=== PATIENT | female | born 1960 | race Caucasian/White ===

== ENCOUNTER 2023-01-09 22:27 | Emergency (ER) | payer BC, SELFPAY ==
[2023-01-09 22:34] VITALS: BP 154/84; PULSE 88; RESP 20; TEMP 35.6; O2SAT 90
--- NOTE | 2023-01-09 23:59 | ED.GENADULT ---
HPI - General Adult General Chief complaint: Shortness of Breath/Dyspnea Stated complaint: has copd and is having a hard time breathing Time Seen by Provider: 01/09/23 23:51 History of Present Illness HPI narrative: pt feeling short of breath . took inhaler 1 hour ago, Albuterol. Pt feels a little bit better but still feels short of breath . 8/10 rated for SOB. 62-year-old woman presenting to the emergency department with concern of increasing shortness of breath over the last couple of days. She does have a history of COPD. No longer smokes but until recently at least smoked marijuana in a rather committed fashion. Does have and sounds like DuoNebs available. Isn't quite due for another dose but has been using them. It is not clear to me that she does have a steroid inhaler; sounds to have an long-acting beta agonist combined with ipratropium. Not clear to me that she has had or has regular pulmonary function test. No significant cough. No fever. No swelling in the legs. Does not have a CHF diagnosis. No fevers. Related Data Allergies Allergy/AdvReac Type Severity Reaction Status Date / Time bupropion [From Wellbutrin] Allergy Intermediate Verified 01/09/23 22:38 Latex, Natural Rubber Allergy Intermediate Verified 01/09/23 22:38 Review of Systems Status of ROS: Reports: 6 or more systems reviewed and unremarkable except as noted in History and below PFSH ON LICENSE OF [facility] Social History Non-prescribed substance use: denies use Exam Narrative: Exam Narrative: Is very pleasant. Seems a little uncomfortable subtly labored in her breathing. Calm. Skin is warm and dry. No rash is apparent. Extremities are without edema. Well perfused. I do not hear any wheeze or stridor. On auscultation to her lungs however there are trace end-expiratory wheezes generally but more so on the left upper chest. Heart with regular rate and rhythm. Const: Vital Signs, click to edit/add: Vital Signs - 24 hr 01/09/23 22:34 01/10/23 01:00 Temperature 96.0 F L Pulse Rate [Left P ulse Oximeter] 88 82 Respiratory Rate 20 18 Blood Pressure [Ri ght Upper Arm] 154/84 H 132/8 L Pulse Oximetry 90 92 Oxygen Delivery Me thod Room Air Room Air Documenting provider has reviewed patient's vital signs: yes Course Vital Signs Vital signs: Initial Vital Signs Temperature 96.0 F L 01/09/23 22:34 Temperature Source Temporal Artery Scan 01/09/23 22:34 Pulse Rate 88 01/09/23 22:34 Pulse Rhythm Regular 01/09/23 22:34 Respiratory Rate 20 01/09/23 22:34 Blood Pressure 154/84 H 01/09/23 22:34 Blood Pressure Mean 107 H 01/09/23 22:34 Blood Pressure Position Sitting 01/09/23 22:34 Pulse Oximetry 90 01/09/23 22:34 Oxygen Delivery Method Room Air 01/09/23 22:34 Vital Signs Temperature 96.0 F L 01/09/23 22:34 Pulse Rate 88 01/09/23 22:34 Respiratory Rate 20 01/09/23 22:34 Blood Pressure 154/84 H 01/09/23 22:34 Pulse Oximetry 90 01/09/23 22:34 Oxygen Delivery Method Room Air 01/09/23 22:34 Temperature 96.0 F L 01/09/23 22:34 Pulse Rate 82 01/10/23 01:00 Respiratory Rate 18 01/10/23 01:00 Blood Pressure 132/8 L 01/10/23 01:00 Pulse Oximetry 92 01/10/23 01:00 Oxygen Delivery Method Room Air 01/10/23 01:00 Medical Decision Making MDM Narrative Medical decision making narrative: Differential includes CHF/CHF exacerbation, pneumonia, COPD exacerbation as described, reactive airway exacerbation of some sort, pneumothorax, pneumomediastinum, nonspecific URI. Pulmonary embolus perhaps but seems atypical. COVID potential. Ordered for DuoNeb and chest x-ray. By my read chest x-rays without infiltrative process. Seems a little hyperlucent maybe hyperexpanded. Radiology over-read noting normalcy. Improved after DuoNeb somewhat. Also given dose of prednisone. [place] better and potentially depart. I heard that struggled a little bit again upon departure but used her inhaler and felt better. See patient discharge plan. Discharge Plan Discharge Clinical Impression: COPD exacerbation Patient Disposition: Home w/ Parent or Adult Condition: Improved Additional Instructions: I would use your DuoNeb inhaler containing albuterol and ipratropium bromide, scheduled 4 times daily over the next 3-4 days. You can use albuterol inhaler or nebulizer in between if needed. Exceeding 8 or 9 dosings per day is too much. We change, our environment changes, therefore symptoms change. It is good to periodically have testing of your lung function and adjustment of medication accordingly. You might benefit from an inhaled daily steroid which it does not sound like you're taking at this point. But you can revisit your symptoms and pulmonary function in a visit with your primary care provider or pulmonology. Return for increasing and persistent shortness of breath, associated fever. Prednisone from [facility]. Follow Up/Referrals: Zoey Watters MD [Primary Care Provider] - Stand Alone Forms: [employer] Info Instructions
--- NOTE | 2023-01-10 | CRLHL7_ITS ---
For Patients: As a result of the Century Cures Act, medical imaging exams and procedure reports are released immediately into your electronic medical record. You may view this report before your referring provider. If you have questions, please contact your health care provider. INDICATION: Dyspnea. History of COPD. COMPARISON: Chest two views from 04/17/2019 FINDINGS: PA and lateral views of the chest were obtained. The lungs remain clear. No focal or diffuse infiltrates are present. The heart remains normal in size. The mediastinum is normal in appearance. The osseous structures are normal in appearance for the patient`s age. IMPRESSION: Normal chest two views. Dictated by Sergey Mansfield MD @ 01/10/2023 1:49:06 AM (Electronically Signed)
[2023-01-10] MEDS: predniSONE 20 MG TABLET 60 MG PO (00:03)
[2023-01-10] MEDS: IPRAT-ALBUT 0.5-2.5 MG/3 ML NEB 1 NEB IH (00:06)
[2023-01-10 01:00] VITALS: BP 132/8; PULSE 82; RESP 18; O2SAT 92
== END 2023-01-10 01:12 | disposition home or self-care (01) ==
PROVIDERS: Emergency Provider Family Medicine; PCP Family Medicine
DX: J44.1 Chronic obstructive pulmonary disease with (acute) exacerbation (principal)
CPT/HCPCS: 71046; 94640; 99283; 99284; J7512

== ENCOUNTER 2023-02-27 19:16 | Emergency (ER) | payer BC, SELFPAY ==
[2023-02-27] VITALS (16 sets, daily range): BP systolic 100–113; BP diastolic 71–80; PULSE 79–87; RESP 20; TEMP 35.5; O2SAT 90–99; BMI 24.8
--- NOTE | 2023-02-27 19:41 | CRLHL7_ITS ---
For Patients: As a result of the Century Cures Act, medical imaging exams and procedure reports are released immediately into your electronic medical record. You may view this report before your referring provider. If you have questions, please contact your health care provider. INDICATION: COPD, shortness of breath TECHNIQUE: Chest 2 views COMPARISON: FINDINGS: Cardiovascular and mediastinum: Heart size and vasculature are normal in caliber and appearance. Lungs and pleural spaces: Mild generalized hyperlucency, as before, otherwise, lungs are clear. No sign of infiltrate or mass. No sign of pleural effusion. No pneumothorax. Bones and soft tissues: No significant findings. IMPRESSION: No acute findings and no significant changes from the prior exam. Dictated by Abhilash Ogden MD @ 02/27/2023 8:38:54 PM (Electronically Signed)
--- NOTE | 2023-02-27 19:45 | ED_ITS ---
HPI - General Adult General Time Seen by Provider: 19:30 Date Seen: 02/27/23 Chief complaint: Shortness of Breath/Dyspnea Stated complaint: COPD, can't breath Time Seen by Provider: 02/27/23 19:26 History of Present Illness HPI narrative: This is a pleasant 63-year-old female coming to the ER today by her family. She came in from home for shortness of breath. She has a history of COPD and is a former smoker. She quit cigarettes some years ago. She was seen here in the ER a few weeks ago for COPD and was treated with DuoNebs and a burst of oral prednisone with improvement. She had been doing fairly well up until yesterday. She was out in the humidity and then noted that her breathing got worse. She often identifies humidity is a trigger for her COPD exacerbations. Overnight she was having trouble breathing. She used her Ventolin inhaler and her nebulizers without much improvement. She was not able to sleep much because of trouble breathing. She has had ongoing shortness of breath all day today. She was trying to put off coming in. She gave herself a 40 mg dose of prednisone this morning about 9:00 a.m., as she has a standby prescription for prednisone at home. Ultimately her breathing was too short all day long so she came in. She is not having any chest pain. No hemoptysis. She has a largely nonproductive cough, sometimes productive of small amounts of clear sputum. No fever. No known sick exposures. No palpitations. No swelling in her legs. Related Data Home Medications Medication Instructions Recorded Confirmed acyclovir 5 % topical ointment topical 02/27/23 albuterol sulfate 90 mcg/actuation inhalation 02/27/23 aerosol inhaler (Ventolin HFA) aripiprazole 5 mg tablet 5 mg PO DAILY 02/27/23 02/27/23 atorvastatin 20 mg tablet 20 mg PO DAILY 02/27/23 02/27/23 cetirizine 10 mg tablet 10 mg PO DAILY 02/27/23 02/27/23 duloxetine 60 mg capsule,delayed PO 02/27/23 release epinephrine 0.3 mg/0.3 mL 0.3 mg IM ONCE PRN 02/27/23 02/27/23 injection, auto-injector fenofibrate nanocrystallized 145 145 mg PO DAILY 02/27/23 02/27/23 mg tablet ipratropium 0.5 mg-albuterol 3 mg ml inhalation 02/27/23 (2.5 mg base)/3 mL nebulization soln metformin 500 mg tablet 1,000 mg PO BID 02/27/23 02/27/23 metoprolol succinate 50 mg 50 mg PO DAILY 02/27/23 02/27/23 tablet,extended release 24 hr tiotropium 2.5 mcg-olodaterol 2.5 2 puff inhalation DAILY 02/27/23 02/27/23 mcg/actuation mist for inhalation (Stiolto Respimat) valacyclovir 500 mg tablet PO 02/27/23 Allergies Allergy/AdvReac Type Severity Reaction Status Date / Time bupropion [From Wellbutrin] Allergy Intermediate Verified 01/09/23 22:38 Latex, Natural Rubber Allergy Intermediate Verified 01/09/23 22:38 Review of Systems Narrative: [facility] Social History Smoking Status: Never smoker Do you use any of these nicotine containing products: None How often do you have a drink containing alcohol: never AUDIT-C Alcohol total score: 0 Non-prescribed substance use: denies use Exam Narrative: Exam Narrative: Constitutional: Appears well-developed and well-nourished. Alert. Conversant. Non toxic. HENT: Head: Atraumatic. Nose: Nose normal. Mouth/Throat: Oral mucosa is clear and moist. no trismus. Pharynx normal. Tonsils symmetric. No tonsillar enlargement, erythema, or exudate. Eyes: Conjunctivae normal. EOM normal. Pupils equal, round, and reactive to light. No scleral icterus. Neck: Normal range of motion. Neck supple. No tracheal deviation present. No JVD Cardiovascular: Normal rate, regular rhythm. No gallop. No friction rub. No murmur heard. Symmetric radial artery pulses Pulmonary/Chest: Effort normal. No acute tachypnea or retractions. Oxygen sat 91% room air. No stridor. No respiratory distress. Has reasonably good aeration in the apices but fairly tight lung sounds and no audible wheezes specially with forced expiration.. No tenderness. Abdominal: Soft. No distension. No mass. No tenderness. No rebound. No guarding. Musculoskeletal: RUE: Normal range of motion. No tenderness. No deformity LUE: Normal range of motion. No tenderness. No deformity RLE: Normal range of motion. No edema. No tenderness. No deformity LLE: Normal range of motion. No edema. No tenderness. No deformity Neurological: Alert and oriented to person, place, and time. Normal strength. CN II-VII intact. No sensory deficit. GCS eye subscore is 4. GCS verbal subscore is 5. GCS motor subscore is 6. Normal coordination Skin: Skin is warm and dry. No rash noted. No pallor. Normal capillary refill. Psychiatric: Normal mood. Normal affect. Const: Vital Signs, click to edit/add: Vital Signs - 24 hr 02/27/23 19:20 02/27/23 20:00 02/27/23 20:10 Temperature 96 F L Pulse Rate 84 82 Pulse Rate [Pulse Oximeter] 86 Respiratory Rate 20 Blood Pressure Blood Pressure [Le ft Upper Arm] 101/71 Pulse Oximetry 94 94 92 Oxygen Delivery Me thod Room Air 02/27/23 20:20 02/27/23 20:30 02/27/23 20:40 Temperature Pulse Rate 81 80 80 Pulse Rate [Pulse Oximeter] Respiratory Rate Blood Pressure Blood Pressure [Le ft Upper Arm] Pulse Oximetry 90 98 99 Oxygen Delivery Me thod 02/27/23 20:50 02/27/23 21:00 02/27/23 21:13 Temperature Pulse Rate 79 84 84 Pulse Rate [Pulse Oximeter] Respiratory Rate Blood Pressure Blood Pressure [Le ft Upper Arm] Pulse Oximetry 99 98 91 Oxygen Delivery Me thod 02/27/23 21:14 02/27/23 21:20 02/27/23 21:26 Temperature Pulse Rate 86 80 82 Pulse Rate [Pulse Oximeter] Respiratory Rate Blood Pressure 100/74 113/80 Blood Pressure [Le ft Upper Arm] Pulse Oximetry 93 92 95 Oxygen Delivery Me thod 02/27/23 21:30 02/27/23 21:40 02/27/23 21:50 Temperature Pulse Rate 79 83 87 Pulse Rate [Pulse Oximeter] Respiratory Rate Blood Pressure 107/77 Blood Pressure [Le ft Upper Arm] Pulse Oximetry 98 95 92 Oxygen Delivery Me thod 02/27/23 21:51 Temperature Pulse Rate 82 Pulse Rate [Pulse Oximeter] Respiratory Rate Blood Pressure Blood Pressure [Le ft Upper Arm] Pulse Oximetry 92 Oxygen Delivery Me thod Course Course Hospital Course: recheck: after duoneb, no change in symptoms. Repeat lung exam: increased bilateral wheezing. Possibly due to improvement in overall aeration. will repeat neb. Reevaluation(s) Reevaluation #1: Recheck-troponin is abnormal. I reviewed we reviewed EKG and it does confirm no evidence for ischemia. Updated the patient and her son. They verbalized understanding and agree with the plan to administer aspirin, heparin. If they require transfer they would [facility] where she has been in the past. Phone call to our [facility] Reevaluation #2: Discussed with cardiology from [facility], cardiology Dr. Magana. He would agree with aspirin, heparin. No beds available currently in the line. Will put the patient on a wait list for a cardiac tele bed. They are currently 2 patient is on the wait list in front of her. He request delta troponin-ordered. Vital Signs Vital signs: Initial Vital Signs Temperature 96 F L 02/27/23 19:20 Temperature Source Temporal Artery Scan 02/27/23 19:20 Pulse Rate 86 02/27/23 19:20 Respiratory Rate 20 02/27/23 19:20 Blood Pressure 101/71 02/27/23 19:20 Blood Pressure Mean 81 02/27/23 19:20 Blood Pressure Position Sitting 02/27/23 19:20 Pulse Oximetry 94 02/27/23 19:20 Oxygen Delivery Method Room Air 02/27/23 19:20 Vital Signs Temperature 96 F L 02/27/23 19:20 Pulse Rate 86 02/27/23 19:20 Respiratory Rate 20 02/27/23 19:20 Blood Pressure 101/71 02/27/23 19:20 Pulse Oximetry 94 02/27/23 19:20 Oxygen Delivery Method Room Air 02/27/23 19:20 Temperature 96 F L 02/27/23 19:20 Pulse Rate 82 02/27/23 21:51 Respiratory Rate 20 02/27/23 19:20 Blood Pressure 107/77 02/27/23 21:50 Pulse Oximetry 92 02/27/23 21:51 Oxygen Delivery Method Room Air 02/27/23 19:20 Medical Decision Making MDM Narrative Medical decision making narrative: This patient presents to the ER today for evaluation of difficulty breathing that began yesterday, persisted throughout the night and throughout the day today. Differential was broad. No evidence of palpitations, syncope or other cardiac dysrhythmia. She has a history of COPD and felt that this was probably an exacerbation of COPD. However she is not responding to her normal at home inhalers, nebulizers, and at home steroids. Lung sounds here in the ER initially revealed minimal bibasilar wheezes but generally good aeration. We administer DuoNeb here in the ER[] We considered possible atypical presentation of ACS. EKG shows no definite ischemia but troponin is positive at 0.55 ng per mL. This is concerning for po ssible non ST elevation [place]. delta troponin ordered for 11:00 p.m.. Discussed with Cardiology from [facility], Dr. Magana. He agrees with plan to initiate aspirin, heparin. He would agree that [facility] Unfortunately no beds available. She is currently on the wait list. EKG shows no evidence for pericarditis. Clinical presentation not suggestive of myocarditis. Chest x-ray shows no evidence for pneumonia, pneumothorax, pulmonary edema, pleural effusion, rib fracture, cardiomegaly. Mediastinum is normal on the x-ray. The patient has no ripping or tearing pain through to the back and has symmetric pulses on exam, no other acute neuro findings so I doubt aortic dissection. Risk of radiation and contrast exposure would outweigh the benefit of CT angiogram. We considered PE for this patient. Overall felt to be low risk given alternative explanations for her symptoms. She is having some wheezing and bronchospasm consistent with COPD. She was given herself steroids at home today so did not repeat a dose here in the ER tonight. We did administer serial bronchodilators here in the ER. She did have some slight improvement in her lung sounds. Unclear if rhabdo troponin is due to demand ischemia from COPD exacerbation or truly represents ACS. She will be transferred for cardiac workup to rule out ACS. No signs of chest wall cellulitis, shingles, injury. Lab Data Labs: Lab Results 02/27/23 02/27/23 02/27/23 Range/Units 20:00 20:29 21:10 WBC 8.35 (4.50-11.00) K/uL RBC 4.26 (4.00-5.20) m/uL Hgb 12.9 (12.0-16.0) gm/dL Hct 39.9 (33.0-51.0) % MCV 94 (80-100) fL MCH 30 (26-34) pg MCHC 32 (32-36) gm/dL RDW Coeff of Debby 12.2 (11.5-15.5) % Plt Count 310 (140-440) K/uL Neut % (Auto) 82.5 H (42.0-72.0) % Lymph % (Auto) 14.7 L (20-44) % [place] % (Auto) 1.9 (0.0-11.0) % Eos % (Auto) 0.5 (0.0-7.0) % Baso % (Auto) 0.2 (0.0-3.0) % Neut # (Auto) 6.90 (1.7-7.0) K/uL Lymph # (Auto) 1.20 (0.90-2.90) K/uL [place] # (Auto) 0.20 (0.00-0.90) K/UL Eos # (Auto) 0.04 (0.00-0.50) K/uL Baso # (Auto) 0.02 (0.00-0.30) K/uL Abs Immat Gran (auto) 0.02 (0.00-0.30) K/uL Imm/Tot Granulo (auto) 0.2 % INR 1.02 (0.91-1.10) APTT 31 (23-33) Seconds Sodium 134 L (135-149) mmol/L Potassium 4.6 (3.6-5.1) mmol/L Chloride 102 (96-114) mmol/L Carbon Dioxide 20 (20-32) mmol/L BUN 25 (7-30) mg/dL Creatinine 0.6 (0.5-1.5) mg/dL Estimated Creat Clear 48.25 Estimated GFR 101 ml/min Glucose 159 H (60-115) mg/dL Calcium 8.7 (8.4-10.6) mg/dL Troponin I 0.55 H* (0.01-0.04) ng/mL SARS-CoV-2 (PCR) Negative SARS-CoV-2 (Negative) Influenza Type A (PCR) Negative PCR FLU A (Negative) Influenza Type B (PCR) Negative PCR FLU B (Negative) RSV (PCR) Negative PCR RSV (Negative) Imaging Data Chest x-ray: My impression: No pneumonia, pneumothorax, pulmonary edema Radiologist's impression: IMPRESSION: No acute findings and no significant changes from the prior exam. ECG Data Interpretation: Normal sinus rhythm rate 84 NV 142 QRS axis: Right axis deviation. No pathologic Q-waves. ST segment/T wave: No definite ST segment elevation or depression. No T-wave inversions. QTc: 449 Discharge Plan Discharge Clinical Impression: Non-ST elevation [place] (NSTEMI), COPD exacerbation Patient Disposition: [facility] Condition: Guarded Prescriptions: No Action metformin 500 mg tablet 1,000 mg PO BID atorvastatin 20 mg tablet 20 mg PO DAILY ipratropium-albuterol 0.5 mg-3 mg(2.5 mg base)/3 mL solution for nebulization INHALATION Patient Comments: [NO ORIGINAL SIG] cetirizine 10 mg tablet 10 mg PO DAILY metoprolol succinate 50 mg tablet extended release 24 hr 50 mg PO DAILY valacyclovir 500 mg tablet PO acyclovir 5 % ointment topical epinephrine 0.3 mg/0.3 mL auto-injector 0.3 mg IM ONCE PRN albuterol sulfate [Ventolin HFA] 90 mcg/actuation HFA aerosol inhaler inhalation aripiprazole 5 mg tablet 5 mg PO DAILY duloxetine 60 mg capsule,delayed release(DR/EC) PO fenofibrate nanocrystallized 145 mg tablet 145 mg PO DAILY Stiolto Respimat 2.5-2.5 mcg/actuation mist 2 puff inhalation DAILY Stand Alone Forms: [employer] Info Instructions
[2023-02-27 20:15] LABS: Basophils Absolute Auto 0.02 K/uL (0.00-0.30); Basophils Percent Auto 0.2 % (0.0-3.0); Eosinophils Absolute Auto 0.04 K/uL (0.00-0.50); Eosinophils Percent Auto 0.5 % (0.0-7.0); Hematocrit 39.9 % (33.0-51.0); Hemoglobin* 12.9 gm/dL (12.0-16.0); Immature Granulocytes Abs Auto 0.02 K/uL (0.00-0.30); Immature Granulocytes Pct Auto 0.2 %; Lymphocytes Percent Auto 14.7 % (20-44); Mean Corpuscular HGB Conc 32 gm/dL (32-36); Mean Corpuscular Hemoglobin 30 pg (26-34); Mean Corpuscular Volume 94 fL (80-100); Monocytes Percent Auto 1.9 % (0.0-11.0); Neutrophils Percent Auto 82.5 % (42.0-72.0); RDW Coefficient of Variation % 12.2 % (11.5-15.5); Red Blood Count 4.26 m/uL (4.00-5.20); White Blood Count* 8.35 K/uL (4.50-11.00)
[2023-02-27 20:29] LABS: Chloride* 102 mmol/L (96-114); Potassium* 4.6 mmol/L (3.6-5.1); Sodium* 134 mmol/L (135-149)
[2023-02-27 20:32] LABS: Blood Urea Nitrogen* 25 mg/dL (7-30); Carbon Dioxide* 20 mmol/L (20-32); Creatinine* 0.6 mg/dL (0.5-1.5); Est. Creatinine Clearance* 48.25; Estimated Glomerular Filt Rate 101 ml/min
[2023-02-27 20:33] LABS: Calcium* 8.7 mg/dL (8.4-10.6); Glucose* 159 mg/dL (60-115)
[2023-02-27 20:47] LABS: Platelet Count* 310 K/uL (140-440); Slide Review Reflex No
[2023-02-27 20:48] LABS: Troponin I* 0.55 ng/mL (0.01-0.04)
[2023-02-27] MEDS: IPRAT-ALBUT 0.5-2.5 MG/3 ML NEB 1 NEB IH (21:05)
[2023-02-27] MEDS: ASPIRIN 81 MG TAB.CHEW 324 MG PO (21:11)
[2023-02-27] MEDS: HEPARIN 5,000 UNIT/0.5 ML INJ 3800 UNIT IVP (21:28)
[2023-02-27] MEDS: HEPARIN 25,000 UNIT/500 ML BAG 15 UNIT IV (21:30)
[2023-02-27 21:37] LABS: PCR FLU A Negative PCR FLU A (Negative); PCR FLU B Negative PCR FLU B (Negative); PCR RSV Negative PCR RSV (Negative)
[2023-02-27 21:45] LABS: INR 1.02 (0.91-1.10)
[2023-02-27 21:46] LABS: Partial Thromboplastin Time* 31 Seconds (23-33)
[2023-02-27] MEDS: ALBUTEROL SULFATE 2.5 MG/3 ML VIAL.NEB NEB (21:49)
[2023-02-27 22:16] LABS: SARS PCR* Negative SARS-CoV-2 (Negative)
[2023-02-27 22:50] LABS: Troponin I* 0.56 ng/mL (0.01-0.04)
--- NOTE | 2023-02-27 23:35 | CRLHL7_ITS ---
For Patients: As a result of the Century Cures Act, medical imaging exams and procedure reports are released immediately into your electronic medical record. You may view this report before your referring provider. If you have questions, please contact your health care provider. INDICATION: Shortness of breath, chest pain TECHNIQUE: CT chest pulmonary PE protocol acquired with 95 cc Isovue 370 IV contrast. COMPARISON: Chest radiograph February 27, 2023, chest CT October 30, 2010 FINDINGS: Cardiovascular structures: Normal vascular enhancement of the pulmonary arteries, no sign of pulmonary embolism. Heart size is normal. Coronary artery calcifications. No sign of aneurysm in the thoracic aorta. Mediastinum and zulma: No mass or adenopathy. Lungs: Centrilobular emphysema. Calcified granuloma in the right upper lobe. 4.6 mm subpleural pulmonary nodule right upper lobe, stable since October 30, 2010. This can be considered benign. Diffuse bronchial wall thickening. Pleura and pericardium: No effusions. Chest wall and axilla: No mass or adenopathy. Upper abdomen: Unremarkable. Bones: No significant findings. IMPRESSION: No pulmonary embolism or pneumonia. Emphysema with chronic bronchitis. Coronary artery disease. Please note that all CT scans at this facility use dose modulation, iterative reconstruction, and/or weight-based dosing when appropriate to reduce radiation dose to as low as reasonably achievable. Dictated by Ramona Horton MD @ 02/28/2023 2:07:52 AM (Electronically Signed)
[2023-02-28 00:24] LABS: Troponin I* 0.53 ng/mL (0.01-0.04)
--- NOTE | 2023-02-28 00:24 | ED.NURSE ---
Critical result from lab: trop I 0.53. and RN updated.
[2023-02-28] MEDS: HEPARIN 5,000 UNIT/0.5 ML INJ 3200 UNIT IVP (04:50)
--- NOTE | 2023-02-28 04:51 | ED.NURSE ---
Patient report to EDILBERTO Santos. Patient left department via EMS cot en route to [facility] with all patient belongings.
[2023-02-28 05:36] LABS: Partial Thromboplastin Time* 29 Seconds (23-33)
[2023-02-28 05:37] LABS: Troponin I* 0.56 ng/mL (0.01-0.04)
[2023-02-28 06:33] LABS: INR 0.98 (0.91-1.10); Prothrombin Time 13.6 Seconds
== END 2023-02-28 04:30 | disposition short-term general hospital (02) ==
PROVIDERS: Emergency Provider Emergency Medicine; PCP Family Medicine
DX: I21.4 Non-ST elevation (NSTEMI) myocardial infarction (principal); J44.1 Chronic obstructive pulmonary disease with (acute) exacerbation
CPT/HCPCS: 36415; 71046; 71275; 80048; 84484; 85025; 85027; 85610; 85730; 87631; 93005; 94640; 99284; 99285; A9270; J1644; Q9967

== ENCOUNTER 2023-02-28 04:37 | Outpatient (CLI) | payer BC, SELFPAY | END 2023-02-28 04:38 | disposition home or self-care (01) | LOC: AMB 05-17 09:24 | PROVIDERS: PCP Family Medicine; Visit Provider Emergency Medicine | DX: I21.4 Non-ST elevation (NSTEMI) myocardial infarction (principal); J44.9 Chronic obstructive pulmonary disease, unspecified | CPT/HCPCS: A0425; A0427 ==

== ENCOUNTER 2023-08-16 14:01 | Emergency (ER) | payer MEDICAID, SELFPAY ==
[2023-08-16] VITALS (8 sets, daily range): BP systolic 129; BP diastolic 77; PULSE 82–102; RESP 20; TEMP 36.6; O2SAT 90–93; BMI 25.2
[2023-08-16 14:56] LABS: PCR FLU A POSITIVE PCR FLU A (Negative); PCR FLU B Negative PCR FLU B (Negative); PCR RSV Negative PCR RSV (Negative); SARS PCR* Negative SARS-CoV-2 (Negative)
--- NOTE | 2023-08-16 15:05 | CRLHL7_ITS ---
For Patients: As a result of the Century Cures Act, medical imaging exams and procedure reports are released immediately into your electronic medical record. You may view this report before your referring provider. If you have questions, please contact your health care provider. INDICATION: Cough. TECHNIQUE: Chest 2 views. COMPARISON: None. FINDINGS: Cardiovascular and mediastinum: Heart size and vasculature are normal in caliber and appearance. Lungs and pleural spaces: Pulmonary emphysema. No sign of infiltrate or mass. No sign of pleural effusion. No pneumothorax. Bones and soft tissues: No significant findings. IMPRESSION: Pulmonary emphysema. No acute or significant findings. Dictated by Chas Gonzales MD @ 08/16/2023 4:41:43 PM (Electronically Signed)
[2023-08-16 15:34] LABS: Basophils Absolute Auto 0.01 K/uL (0.00-0.30); Basophils Percent Auto 0.2 % (0.0-3.0); Eosinophils Absolute Auto 0.01 K/uL (0.00-0.50); Eosinophils Percent Auto 0.2 % (0.0-7.0); Hematocrit 40.5 % (33.0-51.0); Hemoglobin* 12.9 gm/dL (12.0-16.0); Immature Granulocytes Abs Auto 0.01 K/uL (0.00-0.30); Immature Granulocytes Pct Auto 0.2 %; Lymphocytes Percent Auto 12.2 % (20-44); Mean Corpuscular HGB Conc 32 gm/dL (32-36); Mean Corpuscular Hemoglobin 30 pg (26-34); Mean Corpuscular Volume 94 fL (80-100); Monocytes Percent Auto 4.2 % (0.0-11.0); Platelet Count* 280 K/uL (140-440); RDW Coefficient of Variation % 13.2 % (11.5-15.5); Red Blood Count 4.33 m/uL (4.00-5.20); White Blood Count* 6.64 K/uL (4.50-11.00)
[2023-08-16 15:35] LABS: Slide Review Reflex No
--- OUTSIDE RECORDS SUMMARY | 2023-08-16 15:36 | XMS_ITS | Clinical Summary ---
Author Name Unknown Organization [employer] [facility] Address [place], [place] [address] Care Team Providers Care Film Process Operator Name Role Phone Gypsy Avitia Satinderyvrose LP Unavailable Charissa Lebron EMBROIDERY WORKER Unavailable Unavaila Zoey Salinas MD Primary Care Provider Allergies Active Allergy Reactions Criticality Noted Date Comments Latex Hives 11/23/2011 Welts Venom-Yellow Jacket Other - Describe In Comment Field 04/25/2015 Arm swelling Bupropion Agitation 09/24/2006 Medications Medication Sig Dispensed Refills Start Date End Date Status DOCOSAHEXANOIC ACID/EPA (FISH OIL ORAL) Take 1,000 mg by mouth once daily. 0 Active MULTIVITAMIN ORAL Take 1 Tablet by mouth once daily. 0 Active aspirin (ECOTRIN) 81 mg enteric coated tablet Take 1 tablet by mouth once daily with a meal. 0 5 Active blood-glucose meterIndications:Type 2 diabetes mellitus without complication, without long-term current use of insulin (HC) by Not Applicable route. Dispense meter, test strips, lancets covered by pt ins. E11.9 NIDDM type II - Test 1 time/day 1 Each 0 2 Active Microlet Lancet 0 2 Active Contour Next Meter 0 2 Active BiPapIndications:Comp manasa sleep apnea syndrome,Central sleep apnea,PRECIOUS (obstructive sleep apnea) ASV machine--for home use at pressure: AutoASV setting EPAP 5-15cmw PS 0-8 Back up rate- auto , full face mask x1/3month with a full face cushion x1/mo 1 Each 11 2 Active blood sugar diagnostic (Contour Next Test Strips) stripIndications:Type 2 diabetes mellitus without complication, without long-term current use of insulin (HC) USE WITH METER TO TEST BLOOD GLUCOSE ONCE A DAY 100 Each 3 2 Active EPINEPHrine (EPIPEN) 0.3 mg/0.3 mL auto-injectorIndicati ons:Bee allergy status Inject 0.3 mg (1 pen) intramuscular each time if needed for Allergic Reaction. 2 Each 0 2 Active ARIPiprazole (ABILIFY) 5 mg tabletIndications:Mod erate episode of recurrent major depressive disorder (HC) Take 1 Tablet (5 mg) by mouth every morning. 100 Tablet 3 3 Active DULoxetine (CYMBALTA) 60 mg Delayed-release capsuleIndications:Mo derate episode of recurrent major depressive disorder (HC) Take 2 Capsules (120 mg) by mouth once daily. 200 Capsule 3 3 Active fenofibrate nanocrystallized (TRICOR) 145 mg tabletIndications:Hyp ertriglyceridemia Take 1 Tablet (145 mg) by mouth once daily with a meal. 100 Tablet 3 3 Active metFORMIN (GLUCOPHAGE) 500 mg tabletIndications:Typ e 2 diabetes mellitus without complication, without long-term current use of insulin (HC) Take 2 Tablets (1,000 mg) by mouth two times daily with meals. 400 Tablet 3 3 Active metoprolol succinate (TOPROL XL) 50 mg sustained-release tabletIndications:Ess ential hypertension Take 1 Tablet (50 mg) by mouth once daily. 100 Tablet 3 3 Active cetirizine (Allergy Relief, cetirizine,) 10 mg tabletIndications:All ergic rhinitis due to pollen, unspecified seasonality Take 1 Tablet (10 mg) by mouth once daily. 100 Tablet 3 3 Active albuterol-ipratropium (DUONEB) (2.5-0.5 mg) in 3 mL NEBULIZATION solutionIndications:C OPD exacerbation (HC) Inhale 3 mL via a nebulizer every 6 hours. 1080 mL 3 3 Active tiotropium-olodateroL (STIOLTO RESPIMAT) 2.5-2.5 mcg/actuation inhalerIndications:Ch ronic obstructive pulmonary disease, unspecified COPD type (HC) Inhale 2 Puffs by mouth once daily. 12 g 3 3 Active NebulizerIndications: COPD exacerbation (HC) Nebulizer, disposable neb kit x 4, reuseable neb kit x 1, mask x 1, filters x 1. Frequency of use: daily; Medication: duoneb Length of need: 12 months 1 Each 0 3 Active acyclovir (ZOVIRAX) 5 % ointment Apply topically to affected area(s) 6 times daily for 7 days as needed for HSV outbreak 0 Active albuterol-ipratropium (DUONEB) (2.5-0.5 mg) in 3 mL NEBULIZATION solution Inhale 1 Neb via a nebulizer two times daily. 0 Active valACYclovir (VALTREX) 500 mg tablet Take 1000 mg by mouth twice for 5 days as needed for HSV outbreak 0 Active CRANBERRY ORAL Take 1 Capsule by mouth once daily. 0 Active nitroglycerin (NITROSTAT) 0.4 mg sublingual tabletIndications:NST [place] (non-ST elevated myocardial infarction) (HC) Place 1 Tablet (0.4 mg) under the tongue every 5 minutes if needed for Chest Pain. SIT DOWN prior to taking this medication. 22 Tablet 0 3 Active atorvastatin (LIPITOR) 80 mg tabletIndications:NST [place] (non-ST elevated myocardial infarction) (HC) Take 1 Tablet (80 mg) by mouth at bedtime. 100 Tablet 3 3 Active predniSONE (DELTASONE) 20 mg tabletIndications:REED MAN D with acute exacerbation (HC) Take 2 Tablets (40 mg) by mouth once daily with a meal for 5 days. Start as needed for severe SOB. 10 Tablet 2 3 Active predniSONE (DELTASONE) 10 mg tabletIndications:Chr onic obstructive pulmonary disease, unspecified COPD type (HC) Take 40 mg daily for 3 days, then 30 mg daily for 3 days, then 20 mg daily for 3 days, then 10 mg daily for 3 days 30 Tablet 0 3 Active sipeenetye-oxngexpo-s ormoterol (Breztri Aerosphere) 160-9-4.8 mcg/actuation HFAAIndications:Chron ic obstructive pulmonary disease, unspecified COPD type (HC) Inhale 2 Puffs by mouth two times daily. 1 g 11 3 Active budesonide-formoteroL (Symbicort) 80-4.5 mcg/actuation (80-4.5 mcg each actuation) inhalerIndications:Ch ronic obstructive pulmonary disease, unspecified COPD type (HC) Inhale 2 Puffs by mouth two times daily. 10.2 g 11 3 Active tiotropium bromide (Spiriva Respimat) 2.5 mcg/actuation mist for inhalationIndications :Chronic obstructive pulmonary disease, unspecified COPD type (HC) Inhale 2 Puffs by mouth once daily. 1 Each 11 3 Active durable medical equipment (DME)Indications:Nont raumatic coccydynia Coccyx cushion 1 Each 0 3 Active Ventolin HFA 90 mcg/actuation inhalerIndications:Ch ronic obstructive pulmonary disease, unspecified COPD type (HC) INHALE ONE TO TWO PUFFS BY MOUTH EVERY 4 HOURS NEEDED FOR SHORTNESS OF BREATH (FIRST CHOICE) 18 g 0 3 Active predniSONE (DELTASONE) 10 mg tabletIndications:Chr onic obstructive pulmonary disease, unspecified COPD type (HC) Take 40 mg daily for 5 days, then 30 mg daily for 5 days, then 20 mg daily for 5 days, then 10 mg daily for 5 days 50 Tablet 0 4 Active Active Problems Problem Noted Date Diagnosed Date NSTEMI (non-ST elevated myocardial infarction) 0 02/28/2023 Overview: 02/28/23 ANW. Troponin elevation in context of COPD exacerbation. Angiogram showed chronic total occlusion of RCA with collaterals. No intervention performed. Favor medical management with imdur. Type 2 diabetes mellitus wit hout complication, without long-term current use of insulin 07/30/2022 Severe recurrent major depre ssion without psychotic features 10/02/2021 Pyelonephritis 04/18/2019 Acute kidney injury 04/18/2019 Septic shock 04/17/2019 COPD, moderate 08/20/2018 Overview: Per pulmonary consult 04/2018, started on spiriva. 08/2018 switched to Incruse Ellipta due to insurance Generalized anxiety disorder 12/07/2017 Moderate episode of recurrent major depressive d isorder 10/28/2017 Gastric reflux 06/08/2017 Essential hypertension 10/15/2016 HUMZA III (vulvar intraepithelial neoplasia III) 0 03/18/2012 Colon polyp 09/23/2011 Overview: Colonoscopy 09/2011 polyp repeat in 5 years Toxic effect of venom of bees 02/25/2011 Urinary, incontinence, stress female 02/25/2011 Vitamin D deficiency 05/14/2010 Tobacco use disorder 09/25/2009 Allergic rhinitis due to pollen 09/24/2006 Overview: environmental allergies Herpes simplex without mention of complication 0 09/24/2006 Other and unspecified hyperlipidemia 09/24/2006 Overview: hypertriglyceremia Posttraumatic stress disorder Pap smear for cervical cancer screening Overview: 09/2021 NIL/HPV negative. Plan: Pap/HPV due 09/2026 Resolved Problems Problem Noted Date Diagnosed Date Resolved Date Major depressive disorder, r ecurrent episode, unspecified 09/14/2008 09/15/2018 Major depressive disorder, r ecurrent episode, mild 11/17/2006 04/14/2011 Depressive disorder, not elsewhere classified 09/25/19 07 05/18/2007 Overview: counsels with Gypsy Avitia/ Farzad Conklin Restless legs syndrome (RLS) 09/24/2006 02/25/2021 Depressive disorder, not elsewhere classified 09/25/19 07 08/30/2018 Overview: counsels with Gypsy Sadi/ Farzad Conklin Major depressive disorder, r ecurrent episode, moderate 04/14/2011 Encounters Date Type Department Care Team Description 08/16/2023 Nurse Triage [facility] [address] [place] [address] Zoey Watters MD Cough 08/13/2023 Refill [facility] [address] [place] [address] Zoey Watters MD Refill Request (Ventolin Hfa) 08/12/2023 3:00 PM KETTLE FIRER Office Visit [facility] [id number] [place] [address] Wilfred Horton MD Follow Up (COPD) 08/12/2023 Travel 07/14/2023 Refill [facility] [address] [place] [address] Zoey Watters MD Refill Request (Ventolin Hfa) 07/05/2023 1:15 PM KETTLE FIRER Phone Office Visit [facility] [address] [facility] [address] [place] [phone] Guerda Garza AUTOMOTIVE PARTS CLERK Phone Visit; Individual Therapy 06/23/2023 4:15 PM KETTLE FIRER Ancillary Procedure [facility] [address] [place] [address] 06/23/2023 2:40 PM KETTLE FIRER Office Visit [facility] [address] [place] [address] Maricel Maravilla MD Derm Problem (Cyst or bone spur on lower tail bone x 3 weeks Pain scale 7/10 ); Rectal Pain (Possible polyp ); Immunization/Injectio n 06/23/2023 Travel 06/20/2023 Refill [facility] [address] [place] [address] Zoey Watters MD Refill Request (Ventolin Hfa) 06/18/2023 Refill [facility] [address] [place] [address] Zoey Watters MD Refill Request (Ventolin Hfa) 06/08/2023 12:15 PM KETTLE FIRER Phone Office Visit [facility] [address] [place] [phone] Guerda Garza AUTOMOTIVE PARTS CLERK Phone Visit; Individual Therapy 06/02/2023 Telephone [facility] [address] [place] [address] Ted Hennessy MD 05/20/2023 Refill [facility] [address] [place] [address] Zoey Watters MD Refill Request (Ventolin Hfa) 05/18/2023 1:25 PM CDT Nurse/Clinic Staff Only [facility] [address] [place] [address] Immunization/Injectio n; Immunization/Injectio n (COVID-19 vaccine) 05/18/2023 Travel 05/17/2023 Telephone [facility] [address] [place] [address] [address] [facility] [address] [place] [phone] Wilfred Horton MD Prior Authorization (budesonide-glycopyr- formoterol (Breztri Aerosphere) 160-9-4.8 mcg/actuation HFAA (DENIED)) from Last 3 Months Immunizations Name Administration Dates Next Due AMB Influenza, IIV4 PF (=>6 mos Flulaval,Fluzone Fluarix)(Flu Clinic Only) 05/20/2017 COVID-19 Vaccine Spikevax (M oderna 50mcg/0.5mL) 12YO+ [id number] Formula PF 05/18/2023 COVID-19 vaccine (Pfizer-Bio NTech 30mcg/0.3mL) 12YO+ BIVALENT PF, MDV 05/22/2022 COVID-19 vaccine (Pfizer-Bio NTech 30mcg/0.3mL) 12YO+ MIGEL-SUCROSE PF, MDV 12/08/2021 COVID-19 vaccine (Pfizer-Bio NTech 30mcg/0.3mL) PF, MDV 10/22/2020,10/01/2020 Influenza, IIV3 (Age >=3 years) 04/04/20 13,03/18/2012,07/02/2008,06/20 Influenza, IIV4 05/18/2023, 3,10/02/2021,04/30,06/01/2019,06/22/2018,06/02/2016 ,04/25/2015,04/10/2014 Pneumococcal Conj 20-valent (Prevnar 20) 02/05/2023 Pneumococcal Poly,23-Valent (Pneumovax) 10/02/2021 RSV, Recombinant ADJ Reconst ituted (Arexvy 120MCG/0.5mL) 06/23/2023 Td (Age >=7 Years) 12/05/2002 Tdap 07/30/2022,03/18/2012 Zoster (Shingrix-RZV, recombinant) 07/30/2022, Family History Medical History Relation Name Comments Allergies Brother 1 Arthritis Brother 1 Hyperlipidemia Brother 1 Hypertension Brother 1 Psychiatric illness Brother 1 Arthritis Brother 2 Heart Disease Brother 2 Hyperlipidemia Brother 2 Hypertension Brother 2 Psychiatric illness Brother 2 Alcohol/Drug Brother 3 Arthritis Brother 3 Hyperlipidemia Brother 3 Hypertension Brother 3 Psychiatric illness Brother 3 Psychiatric illness Brother 4 Diabetes Brother 5 two Alcohol/Drug Father Heart Disease Father Hyperlipidemia Father Hypertension Father Psychiatric illness Father Arthritis Mother Heart Disease Mother Hyperlipidemia Mother Hypertension Mother Psychiatric illness Mother Allergies Sister 1 Hyperlipidemia Sister 1 Psychiatric illness Sister 1 Psychiatric illness Sister 2 Thyroid Disease Sister 2 Good Health Sister 3 Alcohol/Drug Son 1 Allergies Son 1 Good Health Son 1 Allergies Son 2 Good Health Son 2 Cancer-breast No Family History Relation Name Status Comments Brother 1 Alive Brother 2 Alive Brother 3 Alive Brother 4 Alive Brother 5 Alive Father (Age 50) Maternal Grandfather Maternal Grandmother Mother Alive Paternal Grandfather Paternal Grandmother Sister 1 Alive Sister 2 Alive Sister 3 Alive Son 1 Alive Son 2 Alive Social History Tobacco Use Types Packs/Day Years Used Date Smoking Tobacco: Former Cigarettes 0.3 33.4 1 - 09/21/2018 Smokeless Tobacco: Never Tobacco Cessation:Counseling Given: Yes Alcohol Use Standard Drinks/Week Comments Not Currently 0 (1 standard drink = 0.6 oz pur e alcohol) rare PHQ-2 Answer Date Recorded PHQ-2 TOTAL SCORE 2 03/18/2023 Social Connections Answer Date Recorded Frequency of Communication with Friends and Fami ly 0 03/08/2023 Financial Resource Strain Answer Date R ecorded Difficulty of Paying Living Expenses 2 03/08/2023 Difficulty of Paying Living Expenses 1 03/08/2023 Food Insecurity Answer Date Recorded Worried About Running Out of Food in the Last Ye ar 1 03/08/2023 Transportation Needs Answer Date Record ed Lack of Transportation (Medical) 1 03/08/2023 Housing Stability Answer Date Recorded Unable to Pay for Housing in the Last Year 1 03/08/2023 Sex and Gender Information Value Date Recorded Sex Assigned at Not on file Gender Identity Not on file Sexual Orientation Not on file Obstetrics History Para Term AB IAB SAB Ectopic Multiple Livin g Live Births 2 2 Date Outcome GA Total Labor Labor/2nd/3rd Weight Sex Delivery Anes PTL Marleny A1 A5 Name Cl in Last Filed Vital Signs Vital Sign Reading Time Taken Comments Blood Pressure 110/70 08/12/2023 2:53 PM KETTLE FIRER Pulse 76 08/12/2023 2:53 PM KETTLE FIRER Temperature 36.5 ??C (97.7 ??F) 03/03/2023 7:47 AM CD T Respiratory Rate 16 08/12/2023 2:53 PM KETTLE FIRER Oxygen Saturation 95% 08/12/2023 2:53 PM KETTLE FIRER Inhaled Oxygen Concentration - - Weight 62.6 kg (138 lb) 08/12/2023 2:53 PM KETTLE FIRER Height 158 cm (5' 2.2) 08/12/2023 2:53 PM KETTLE FIRER Body Mass Index 25.08 08/12/2023 2:53 PM KETTLE FIRER Plan of Treatment Upcoming Encounters Date Type Department Care Team (Late st Contact Info) Description 11/11/2023 2:00 PM CDT Office Visit [facility] [address] [place] [address] Wilfred Horton MD [address] [facility] [address] [place] [address] Health Maintenance Due Date Last Done Comments Mammogram for age 45-75 06/14/2019 06/14/20 18, 05/27/2016, 04/18/2015, Additional history exists Depression screening for age 12+ 03/18/2024 03/18/2023, 09/20/2022, 09/18/2022, Additional history exists BMI (ht and wt on same day) for age 18+ 08/12/2024 08/12/2023, 05/13/2023, 04/29/2023, Additional history exists Pap test for age 21-65 10/02/2026 , 10/02/2021, 06/22/2018, Additional history exists Lipids for age 45-75 03/01/2028 03/01/2023, 02/05/2023, 10/02/2021, Additional history exists Colonoscopy through age 75 11/05/203111/04, 11/04/2021, 11/04/2021, Additional history exists Tetanus booster 07/30/2032 07/30/2022, 02/18, 12/05/2002 Hepatitis C screening for ag e 18-79 Completed 11/24/2007, 09/07/2007, 07/26/2007 HIV for age 15-65 Completed 04/04/2013, , 11/24/2007, Additional history exists Fecal testing non-DNA (FIT,FOBT,iFOBT) for age 45-75 Discontinued 04/25/2019 Tdap Completed 07/30/2022, 03/18/2012 Zoster (shingles) series for age 50+ Completed 07/30/2022, 10/02/2021 Pneumococcal series for age 6-64 Completed 02/06/20, 10/02/2021 COVID-19 vaccine series Completed 05/18/20 23, 05/22/2022, 12/08/2021, Additional history exists Influenza for age 50-64 Completed 05/18/20 23, 07/30/2022, 10/02/2021, Additional history exists Procedures Procedure Name Priority Date/Time Associated Diagnosis Comments XR SACRUM AND COCCYX MINIMUM 2 VIEWS Routine 06/23/2023 4:24 PM KETTLE FIRER Pain in the coccyx from Last 3 Months Results * XR SACRUM AND COCCYX MINIMUM 2 VIEWS (06/23/2023 4:24 PM KETTLE FIRER) Anatomical Region Laterality Modality Pelvis, SACRUM, COCCYX Computed Radiography 06/24/2023 3:02 PM KETTLE FIRER Narrative 06/24/2023 3:02 PM KETTLE FIRER For Patients: ??As a result of the 21st Century Cures Act, medical imaging exams and procedure reports are released immediately into your electronic medical record. ??You may view this report before your referring provider. ??If you have questions, please contact your health care provider. Indication: Coccygeal pain Technique: Three views sacrum and coccyx Comparison: CT abdomen and pelvis 04/17/2019 Findings: Mild degenerative changes at the sacroiliac joints. Calcified uterine fibroid. Normal sacrococcygeal alignment. No fracture. Impression: No sign of acute or subacute injury. Dictated by Bjorn Wallace MD @ Jun ??2022 ??3:02PM (Electronically Signed) ?? Procedure Note Bjorn Wallace MD - 06/24/2023 For Patients: As a result of the Cures Act, medical imagingexams and procedure reports are released immediately into your electronicmedical record. You may view this report before your referring provider.If you have questions, please contact your health care provider. Indication: Coccygeal pain Technique: Three views sacrum and coccyx Comparison: CT abdomen and pelvis 04/17/2019 Findings: Mild degenerative changes at the sacroiliac joints. Calcified uterinefibroid. Normal sacrococcygeal alignment. No fracture. Impression: No sign of acute or subacute injury. Dictated by Bjorn Wallace MD @ Jun 24 2023 3:02PM (Electronically Signed) Maricel Maravilla MD GENERAL IM AGING from Last 3 Months Advance Directives Latest Code Status on File Code Status Date Activated Date Inactivated Comments Full Code 02/28/2023 12:42 PM 03/03/2023 12:55 PM Question Answer Comments Code Status Discussion: Reviewed Preferences Code Status History Code Status Date Activated Date Inactivated Comments Full Code 02/28/2023 7:49 AM 02/28/2023 12:41 PM Question Answer Comments Code Status Discussion: Unable to Assess Preferences, Provider to review later Full Code 04/17/2019 4:32 PM 04/20/2019 4:03 PM Question Answer Comments Code Status Discussion: Not Discussed Full Code 11/23/2011 10:05 AM 11/23/2011 5:38 PM Care Teams Film Process Operator Relationship Specialty Start Date End Date Zoey Watters MD [address] [place] [address] PCP - General Family Practice 02/06/21 Gypsy Avitia LP Psychology 06/02/16 Charissa Lebron CNS Clinical Nurse Specialist 06/02/16
--- NOTE | 2023-08-16 15:59 | ED.GENADULT ---
HPI - General Adult General Chief complaint: Shortness of Breath/Dyspnea Stated complaint: Shortness of breath, cough Time Seen by Provider: 08/16/23 14:56 Source: patient, RN notes reviewed and old records reviewed Mode of arrival: ambulatory Limitations: no limitations History of Present Illness HPI narrative: Patient is a 63-year-old woman with underlying COPD, followed by pulmonology, who presents for shortness of breath. She says she has been sick for several days now with an upper respiratory infection, cough, fatigue, denies chest pain. No fevers that she knows of. 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 She has continued with her inhalers. She does not have any lower extremity swelling or pain. She was seen here last February and at that time had an elevated troponin, was transferred to [facility] with a diagnosis of non-STEMI. She tells me that they did a coronary angiogram but it was ?too blocked to open up safely. She said that they told her to just wait and see how things went. She says they did not recommend open-heart surgery. She does have nitroglycerin but does not use it. Of note she did not have chest pain at that time despite the elevated troponin. Related Data Home Medications Medication Instructions Recorded Confirmed acyclovir 5 % topical ointment topical 02/27/23 albuterol sulfate 90 mcg/actuation 1 puff inhalation 02/27/23 aerosol inhaler (Ventolin HFA) aripiprazole 5 mg tablet 5 mg PO DAILY 02/27/23 08/16/23 atorvastatin 20 mg tablet 20 mg PO DAILY 02/27/23 08/16/23 cetirizine 10 mg tablet 10 mg PO DAILY 02/27/23 08/16/23 duloxetine 60 mg capsule,delayed 60 mg PO 02/27/23 release epinephrine 0.3 mg/0.3 mL 0.3 mg IM ONCE PRN 02/27/23 02/27/23 injection, auto-injector fenofibrate nanocrystallized 145 145 mg PO DAILY 02/27/23 02/27/23 mg tablet ipratropium 0.5 mg-albuterol 3 mg 3 ml inhalation 02/27/23 (2.5 mg base)/3 mL nebulization soln metformin 500 mg tablet 1,000 mg PO BID 02/27/23 08/16/23 metoprolol succinate 50 mg 50 mg PO DAILY 02/27/23 08/16/23 tablet,extended release 24 hr tiotropium 2.5 mcg-olodaterol 2.5 2 puff inhalation DAILY 02/27/23 02/27/23 mcg/actuation mist for inhalation (Stiolto Respimat) valacyclovir 500 mg tablet 500 mg PO 02/27/23 Allergies Allergy/AdvReac Type Severity Reaction Status Date / Time bupropion [From Wellbutrin] Allergy Intermediate Verified 02/28/23 05:22 Latex, Natural Rubber Allergy Intermediate Verified 02/28/23 05:22 Review of Systems Status of ROS: Reports: 10 or more systems reviewed and unremarkable except as noted in History and below [facility] Social History Smoking Status: Never smoker Do you use any of these nicotine containing products: None How often do you have a drink containing alcohol: never AUDIT-C Alcohol total score: 0 Non-prescribed substance use: denies use Exam Narrative: Exam Narrative: Vital signs as noted above. In general, an alert, well-appearing patient. Head: Normocephalic, atraumatic. Eyes: Pupils are equal reactive. Extraocular movements are full. Conjunctivae are normal. ENT: Mucous membranes are moist. Throat is normal. Neck: Supple without lymphadenopathy. Heart: Regular rate and rhythm. No murmur or rub. Lungs: Scattered bilateral wheezes. No increased work breathing. Abdomen: Soft and nontender. No organomegaly. Extremities: Well perfused. No edema. No calf tenderness. Pulses intact. Neurologic: Patient is alert and oriented to person and place. Speech is fluent. Face is symmetric. Moves all extremities equally. Affect: Normal. Skin: Warm and dry. Well perfused. Const: Vital Signs, click to edit/add: Vital Signs - 24 hr 08/16/23 14:07 Temperature 97.9 F Pulse Rate [Right Pulse Oximeter] 102 H Respiratory Rate 20 Blood Pressure [Ri ght Upper Arm] 129/77 Pulse Oximetry 90 Oxygen Delivery Me thod Room Air Documenting provider has reviewed patient's vital signs: yes Course Course ED Course: Following initial evaluation, patient had an EKG which shows normal sinus rhythm, ventricular rate of 91 beats per minute. No ST segment changes. Unremarkable T-waves. Point of care troponin was 0.02. Overall, have low suspicion of today's symptoms being related to cardiac disease. CBC is notable for white blood cell count 6.6, normal hemoglobin. Left shift with 83% neutrophils. Lactate is mildly elevated at 3. Viral testing is positive for influenza. Chest x-ray by my review is clear. Final radiology read is negative. Patient was given a liter of NS, repeat lactate ordered. Signing this out to oncoming physician to follow up. Otherwise she is well appearing and I think can go home. She is 3-4 days into her illness so I did not recommend Tamiflu. Supportive care, continue Prednisone. Procalcitonin normal, other labs unremarkable aside from elevated LFTs. She does not complain of abdominal pain, nausea, etc. Unknown whether this may be related to her Influenza infection, recommend recheck later this week in clinic, return for worsening. Vital Signs Vital signs: Initial Vital Signs Temperature 97.9 F 08/16/23 14:07 Temperature Source Temporal Artery Scan 08/16/23 14:07 Pulse Rate 102 H 08/16/23 14:07 Respiratory Rate 20 08/16/23 14:07 Blood Pressure 129/77 08/16/23 14:07 Blood Pressure Mean 94 08/16/23 14:07 Blood Pressure Position Sitting 08/16/23 14:07 Pulse Oximetry 90 08/16/23 14:07 Oxygen Delivery Method Room Air 08/16/23 14:07 Vital Signs Temperature 97.9 F 08/16/23 14:07 Pulse Rate 102 H 08/16/23 14:07 Respiratory Rate 20 08/16/23 14:07 Blood Pressure 129/77 08/16/23 14:07 Pulse Oximetry 90 08/16/23 14:07 Oxygen Delivery Method Room Air 08/16/23 14:07 Temperature 97.9 F 08/16/23 14:07 Pulse Rate 82 08/16/23 18:00 Respiratory Rate 20 08/16/23 14:07 Blood Pressure 129/77 08/16/23 14:07 Pulse Oximetry 93 08/16/23 18:00 Oxygen Delivery Method Room Air 08/16/23 14:07 Medications Administered Medications: Discontinued Medications Generic Name Dose Route Start Last Admin Trade Name Freq PRN Reason Stop Dose Admin Albuterol/Ipratropium 1 neb 08/16/23 15:05 08/16/23 16:14 Iprat-Albut 0.5-2.5 Mg/3 Ml Neb IH 08/16/23 15:06 1 neb ONCE ONE Administration Sodium Chloride 1,000 mls @ 1,000 mls/hr 08/16/23 16:00 08/16/23 17:50 0.9 % Sodium Chloride 1000 Ml IV 08/16/23 16:59 Infused .Q1H LUZMARIA Infusion Prednisone 60 mg 08/16/23 15:05 08/16/23 16:04 Prednisone 20 Mg Tablet PO 08/16/23 15:06 Not Given ONCE ONE Medical Decision Making Lab Data Labs: Lab Results 08/16/23 08/16/23 08/16/23 Range/Units 14:15 15: 15:29 WBC 6.64 (4.50-11.00) K/uL RBC 4.33 (4.00-5.20) m/uL Hgb 12.9 (12.0-16.0) gm/dL Hct 40.5 (33.0-51.0) % MCV 94 (80-100) fL MCH 30 (26-34) pg MCHC 32 (32-36) gm/dL RDW Coeff of Debby 13.2 (11.5-15.5) % Plt Count 280 (140-440) K/uL Neut % (Auto) 83.0 H (42.0-72.0) % Lymph % (Auto) 12.2 L (20-44) % [place] % (Auto) 4.2 (0.0-11.0) % Eos % (Auto) 0.2 (0.0-7.0) % Baso % (Auto) 0.2 (0.0-3.0) % Neut # (Auto) 5.50 (1.7-7.0) K/uL Lymph # (Auto) 0.80 L (0.90-2.90) K/uL [place] # (Auto) 0.30 (0.00-0.90) K/UL Eos # (Auto) 0.01 (0.00-0.50) K/uL Baso # (Auto) 0.01 (0.00-0.30) K/uL Abs Immat Gran (auto) 0.01 (0.00-0.30) K/uL Imm/Tot Granulo (auto) 0.2 % Sodium 135 (135-149) mmol/L Potassium 3.9 (3.6-5.1) mmol/L Chloride 101 (96-114) mmol/L Carbon Dioxide 24 (20-32) mmol/L Anion Gap 10 (7-15) mEq/L BUN 15 (7-30) mg/dL Creatinine 0.7 (0.5-1.5) mg/dL Estimated Creat Clear 46.13 Estimated GFR 98 ml/min Glucose 181 H (60-115) mg/dL Lactate 3.0 H (0.5-1.9) mmol/L Calcium 9.0 (8.4-10.6) mg/dL Total Bilirubin 0.4 Cancelled (0.1-1.5) mg/dL Direct Bilirubin 0.0 (0.0-0.5) mg/dL AST (12-35) U/L ALT (4-35) U/L Alkaline Phosphatase (40-150) U/L C-Reactive Protein (0.5-1.0) mg/dL NT-Pro-B Natriuret Pep pg/mL Total Protein (6.0-8.3) g/dL Albumin (3.3-5.0) g/dL Procalcitonin (<0.50) ng/mL SARS-CoV-2 (PCR) Negative SARS-CoV-2 (Negative) Influenza Type A (PCR) POSITIVE PCR FLU A A (Negative) Influenza Type B (PCR) Negative PCR FLU B (Negative) RSV (PCR) Negative PCR RSV (Negative) POC Troponin I (0.01-0.04) ng/ml 08/16/23 08/16/23 08/16/23 Range/Units 15:29 15:29 15:29 WBC (4.50-11.00) K/uL RBC (4.00-5.20) m/uL Hgb (12.0-16.0) gm/dL Hct (33.0-51.0) % MCV (80-100) fL MCH (26-34) pg MCHC (32-36) gm/dL RDW Coeff of Debby (11.5-15.5) % Plt Count (140-440) K/uL Neut % (Auto) (42.0-72.0) % Lymph % (Auto) (20-44) % [place] % (Auto) (0.0-11.0) % Eos % (Auto) (0.0-7.0) % Baso % (Auto) (0.0-3.0) % Neut # (Auto) (1.7-7.0) K/uL Lymph # (Auto) (0.90-2.90) K/uL [place] # (Auto) (0.00-0.90) K/UL Eos # (Auto) (0.00-0.50) K/uL Baso # (Auto) (0.00-0.30) K/uL Abs Immat Gran (auto) (0.00-0.30) K/uL Imm/Tot Granulo (auto) % Sodium (135-149) mmol/L Potassium (3.6-5.1) mmol/L Chloride (96-114) mmol/L Carbon Dioxide (20-32) mmol/L Anion Gap (7-15) mEq/L BUN (7-30) mg/dL Creatinine (0.5-1.5) mg/dL Estimated Creat Clear Estimated GFR ml/min Glucose (60-115) mg/dL Lactate (0.5-1.9) mmol/L Calcium (8.4-10.6) mg/dL Total Bilirubin (0.1-1.5) mg/dL Direct Bilirubin Cancelled (0.0-0.5) mg/dL AST 124 H Cancelled (12-35) U/L ALT 250 H Cancelled (4-35) U/L Alkaline Phosphatase 77 (40-150) U/L C-Reactive Protein (0.5-1.0) mg/dL NT-Pro-B Natriuret Pep pg/mL Total Protein (6.0-8.3) g/dL Albumin (3.3-5.0) g/dL Procalcitonin (<0.50) ng/mL SARS-CoV-2 (PCR) (Negative) Influenza Type A (PCR) (Negative) Influenza Type B (PCR) (Negative) RSV (PCR) (Negative) POC Troponin I (0.01-0.04) ng/ml 08/16/23 08/16/23 08/16/23 Range/Units 15:29 15:29 15:29 WBC (4.50-11.00) K/uL RBC (4.00-5.20) m/uL Hgb (12.0-16.0) gm/dL Hct (33.0-51.0) % MCV (80-100) fL MCH (26-34) pg MCHC (32-36) gm/dL RDW Coeff of Debby (11.5-15.5) % Plt Count (140-440) K/uL Neut % (Auto) (42.0-72.0) % Lymph % (Auto) (20-44) % [place] % (Auto) (0.0-11.0) % Eos % (Auto) (0.0-7.0) % Baso % (Auto) (0.0-3.0) % Neut # (Auto) (1.7-7.0) K/uL Lymph # (Auto) (0.90-2.90) K/uL [place] # (Auto) (0.00-0.90) K/UL Eos # (Auto) (0.00-0.50) K/uL Baso # (Auto) (0.00-0.30) K/uL Abs Immat Gran (auto) (0.00-0.30) K/uL Imm/Tot Granulo (auto) % Sodium (135-149) mmol/L Potassium (3.6-5.1) mmol/L Chloride (96-114) mmol/L Carbon Dioxide (20-32) mmol/L Anion Gap (7-15) mEq/L BUN (7-30) mg/dL Creatinine (0.5-1.5) mg/dL Estimated Creat Clear Estimated GFR ml/min Glucose (60-115) mg/dL Lactate (0.5-1.9) mmol/L Calcium (8.4-10.6) mg/dL Total Bilirubin (0.1-1.5) mg/dL Direct Bilirubin (0.0-0.5) mg/dL AST (12-35) U/L ALT (4-35) U/L Alkaline Phosphatase Cancelled (40-150) U/L C-Reactive Protein 0.8 (0.5-1.0) mg/dL NT-Pro-B Natriuret Pep 836 Cancelled pg/mL Total Protein 6.9 Cancelled (6.0-8.3) g/dL Albumin 4.3 (3.3-5.0) g/dL Procalcitonin (<0.50) ng/mL SARS-CoV-2 (PCR) (Negative) Influenza Type A (PCR) (Negative) Influenza Type B (PCR) (Negative) RSV (PCR) (Negative) POC Troponin I (0.01-0.04) ng/ml 08/16/23 08/16/23 Range/Units 15:29 17:35 WBC (4.50-11.00) K/uL RBC (4.00-5.20) m/uL Hgb (12.0-16.0) gm/dL Hct (33.0-51.0) % MCV (80-100) fL MCH (26-34) pg MCHC (32-36) gm/dL RDW Coeff of Debby (11.5-15.5) % Plt Count (140-440) K/uL Neut % (Auto) (42.0-72.0) % Lymph % (Auto) (20-44) % [place] % (Auto) (0.0-11.0) % Eos % (Auto) (0.0-7.0) % Baso % (Auto) (0.0-3.0) % Neut # (Auto) (1.7-7.0) K/uL Lymph # (Auto) (0.90-2.90) K/uL [place] # (Auto) (0.00-0.90) K/UL Eos # (Auto) (0.00-0.50) K/uL Baso # (Auto) (0.00-0.30) K/uL Abs Immat Gran (auto) (0.00-0.30) K/uL Imm/Tot Granulo (auto) % Sodium (135-149) mmol/L Potassium (3.6-5.1) mmol/L Chloride (96-114) mmol/L Carbon Dioxide (20-32) mmol/L Anion Gap (7-15) mEq/L BUN (7-30) mg/dL Creatinine (0.5-1.5) mg/dL Estimated Creat Clear Estimated GFR ml/min Glucose (60-115) mg/dL Lactate 2.1 H (0.5-1.9) mmol/L Calcium (8.4-10.6) mg/dL Total Bilirubin (0.1-1.5) mg/dL Direct Bilirubin (0.0-0.5) mg/dL AST (12-35) U/L ALT (4-35) U/L Alkaline Phosphatase (40-150) U/L C-Reactive Protein (0.5-1.0) mg/dL NT-Pro-B Natriuret Pep pg/mL Total Protein (6.0-8.3) g/dL Albumin Cancelled (3.3-5.0) g/dL Procalcitonin 0.05 (<0.50) ng/mL SARS-CoV-2 (PCR) (Negative) Influenza Type A (PCR) (Negative) Influenza Type B (PCR) (Negative) RSV (PCR) (Negative) POC Troponin I 0.02 (0.01-0.04) ng/ml Discharge Plan Discharge Clinical Impression: Influenza A, COPD (chronic obstructive pulmonary disease) Patient Disposition: Home, Self-Care Condition: Improved Instructions: Influenza (DC) Additional Instructions: Continue your current medications, including the prednisone. Follow-up with your carpenter supervisor [employer] if you are having persistent difficulties. Return to the emergency department at any time for acute worsening difficulty breathing, or other new symptoms. Your liver enzymes, AST and ALT are mildly elevated today and should be followed up with your primary care doctor for recheck in the next week or so. For significant abdominal pain, yellowing of your skin or eyes, vomiting or other worsening return to the emergency department. Prescriptions: No Action metformin 500 mg tablet 1,000 mg PO BID atorvastatin 20 mg tablet 20 mg PO DAILY ipratropium-albuterol 0.5 mg-3 mg(2.5 mg base)/3 mL solution for nebulization 3 ml INHALATION Patient Comments: [NO ORIGINAL SIG] cetirizine 10 mg tablet 10 mg PO DAILY metoprolol succinate 50 mg tablet extended release 24 hr 50 mg PO DAILY valacyclovir 500 mg tablet 500 mg PO acyclovir 5 % ointment topical epinephrine 0.3 mg/0.3 mL auto-injector 0.3 mg IM ONCE PRN albuterol sulfate [Ventolin HFA] 90 mcg/actuation HFA aerosol inhaler 1 puff inhalation aripiprazole 5 mg tablet 5 mg PO DAILY duloxetine 60 mg capsule,delayed release(DR/EC) 60 mg PO fenofibrate nanocrystallized 145 mg tablet 145 mg PO DAILY Stiolto Respimat 2.5-2.5 mcg/actuation mist 2 puff inhalation DAILY Follow Up/Referrals: Zoey Watters MD [Primary Care Provider] - Stand Alone Forms: [employer] Info Instructions
[2023-08-16 16:06] LABS: Troponin, Point-of-Care* 0.02 ng/ml (0.01-0.04)
[2023-08-16 16:14] LABS: Albumin* 4.3 g/dL (3.3-5.0); Chloride* 101 mmol/L (96-114); Sodium* 135 mmol/L (135-149)
[2023-08-16] MEDS: 0.9 % SODIUM CHLORIDE 1000 ml 1,000 ML IV (16:14)
[2023-08-16] MEDS: IPRAT-ALBUT 0.5-2.5 MG/3 ML NEB 1 NEB IH (16:14)
[2023-08-16 16:15] LABS: Potassium* 3.9 mmol/L (3.6-5.1)
[2023-08-16 16:17] LABS: Alkaline Phosphatase* 77 U/L (40-150); Anion Gap 10 mEq/L (7-15); Aspartate Amino Transferase* 124 U/L (12-35); Bilirubin Total* 0.4 mg/dL (0.1-1.5); Carbon Dioxide* 24 mmol/L (20-32); Creatinine* 0.7 mg/dL (0.5-1.5); Est. Creatinine Clearance* 46.13; Estimated Glomerular Filt Rate 98 ml/min; Total Protein* 6.9 g/dL (6.0-8.3)
[2023-08-16 16:18] LABS: Blood Urea Nitrogen* 15 mg/dL (7-30); Glucose* 181 mg/dL (60-115)
[2023-08-16 16:20] LABS: C Reactive Protein* 0.8 mg/dL (0.5-1.0)
[2023-08-16 16:23] LABS: Alanine Aminotransferase* 250 U/L (4-35)
[2023-08-16 16:28] LABS: Procalcitonin* 0.05 ng/mL (<0.50)
[2023-08-16 16:30] LABS: NT Pro B Type NatriureticPept* 836 pg/mL
[2023-08-16 17:46] LABS: Lactate Sepsis 2 Hour 2.1 mmol/L (0.5-1.9)
[2023-08-18 20:42] LABS: Hep A Ab, IgM Negative (Negative); Hep B Core Ab, IgM Negative (Negative); Hep B Surface Antigen Negative (Negative); Hep C Ab by CIA Index 0.11 IV; Hep C Ab by CIA Interp Negative (Negative)
== END 2023-08-16 18:45 | disposition home or self-care (01) ==
PROVIDERS: Emergency Provider Emergency Medicine; PCP Family Medicine
DX: J09.X2 Influenza due to identified novel influenza A virus with other respiratory manifestations (principal); J44.9 Chronic obstructive pulmonary disease, unspecified
CPT/HCPCS: 36415; 71046; 80048; 80074; 80076; 83605; 83880; 84145; 84484; 85025; 86140; 87631; 93005; 94640; 94761; 99284; 99285; J7030

== ENCOUNTER 2023-10-26 07:22 | Outpatient (CLI) | payer BC, SELFPAY ==
--- OUTSIDE RECORDS SUMMARY | 2023-10-28 09:05 | XMS_ITS | Clinical Summary ---
Author Name Unknown Organization [employer] [facility] [employer] [facility] Address [place], [place] [address] Care Team Providers Care Senior Materials Analyst Name Role Phone Gypsy Avitia Miguel LP Unavailable [phone] Charissa Lebron POULTRY PICKING MACHINE TENDER Unavailable Unavaila Zoey Salinas MD Primary Care Provider Allergies Active Allergy Reactions Criticality Noted Date Comments Latex Hives 11/23/2011 Welts Venom-Yellow Jacket Other - Describe In Comment Field 04/25/2015 Arm swelling Bupropion Agitation 09/24/2006 Medications Medication Sig Dispensed Refills Start Date End Date Status DOCOSAHEXANOIC ACID/EPA (FISH OIL ORAL) Take 1,000 mg by mouth once daily. Suspended MULTIVITAMIN ORAL Take 1 Tablet by mouth once daily. Suspended aspirin (ECOTRIN) 81 mg enteric coated tablet Take 1 tablet by mouth once daily with a meal. 0 07/02/20 15 Suspended blood-glucose meterIndications:Typ e 2 diabetes mellitus without complication, without long-term current use of insulin (HC) by Not Applicable route. Dispense meter, test strips, lancets covered by pt ins. E11.9 NIDDM type II - Test 1 time/day 1 Each 10/10/19 22 024 Discontinued( Pharmacist change per medication history (E-cancel not sent)) Microlet Lancet 10/10/19 22 024 Discontinued( Pharmacist change per medication history (E-cancel not sent)) Contour Next Meter 10/10/19 22 024 Discontinued( Pharmacist change per medication history (E-cancel not sent)) BiPapIndications:Com plex sleep apnea syndrome,Central sleep apnea,PRECIOUS (obstructive sleep apnea) ASV machine--for home use at pressure: AutoASV setting EPAP 5-15cmw PS 0-8 Back up rate- auto , full face mask x1/3month with a full face cushion x1/mo 1 Each 11 11/07/19 22 024 Discontinued( Pharmacist change per medication history (E-cancel not sent)) blood sugar diagnostic (Contour Next Test Strips) stripIndications:Typ e 2 diabetes mellitus without complication, without long-term current use of insulin (HC) USE WITH METER TO TEST BLOOD GLUCOSE ONCE A DAY 100 Each 11/21/19 Suspended Additional Information EPINEPHrine (EPIPEN) 0.3 mg/0.3 mL auto-injectorIndicat ions:Bee allergy status Inject 0.3 mg (1 pen) intramuscular each time if needed for Allergic Reaction. 2 Each 04/20/20 Suspended Additional Information ARIPiprazole (ABILIFY) 5 mg tabletIndications:Mo derate episode of recurrent major depressive disorder (HC) Take 1 Tablet (5 mg) by mouth every morning. 100 Tablet 02/06/20 Suspended Additional Information DULoxetine (CYMBALTA) 60 mg Delayed-release capsuleIndications:M oderate episode of recurrent major depressive disorder (HC) Take 2 Capsules (120 mg) by mouth once daily. 200 Capsule 02/06/20 Suspended Additional Information fenofibrate nanocrystallized (TRICOR) 145 mg tabletIndications:Hy pertriglyceridemia Take 1 Tablet (145 mg) by mouth once daily with a meal. 100 Tablet 02/06/20 Suspended Additional Information metFORMIN (GLUCOPHAGE) 500 mg tabletIndications:Ty pe 2 diabetes mellitus without complication, without long-term current use of insulin (HC) Take 2 Tablets (1,000 mg) by mouth two times daily with meals. 400 Tablet 02/06/20 Suspended Additional Information metoprolol succinate (TOPROL XL) 50 mg sustained-release tabletIndications:Es sential hypertension Take 1 Tablet (50 mg) by mouth once daily. 100 Tablet 02/06/20 Suspended Additional Information cetirizine (Allergy Relief, cetirizine,) 10 mg tabletIndications:Al lergic rhinitis due to pollen, unspecified seasonality Take 1 Tablet (10 mg) by mouth once daily. 100 Tablet 3 02/06/20 23 Suspended Additional Information albuterol-ipratropiu m (DUONEB) (2.5-0.5 mg) in 3 mL NEBULIZATION solutionIndications: COPD exacerbation (HC) Inhale 3 mL via a nebulizer every 6 hours. 1080 mL 3 02/06/20 23 024 Discontinued( Pharmacist change per medication history (E-cancel not sent)) NebulizerIndications :COPD exacerbation (HC) Nebulizer, disposable neb kit x 4, reuseable neb kit x 1, mask x 1, filters x 1. Frequency of use: daily; Medication: duoneb Length of need: 12 months 1 Each 02/24/20 23 Suspended Additional Information acyclovir (ZOVIRAX) 5 % ointment Apply topically to affected area(s) 6 times daily for 7 days as needed for HSV outbreak Suspended albuterol-ipratropiu m (DUONEB) (2.5-0.5 mg) in 3 mL NEBULIZATION solution Inhale 1 Neb via a nebulizer two times daily. Suspended valACYclovir (VALTREX) 500 mg tablet Take 1000 mg by mouth twice for 5 days as needed for HSV outbreak Suspended CRANBERRY ORAL Take 1 Capsule by mouth once daily. Suspended nitroglycerin (NITROSTAT) 0.4 mg sublingual tabletIndications:NS STANLEY (non-ST elevated myocardial infarction) (HC) Place 1 Tablet (0.4 mg) under the tongue every 5 minutes if needed for Chest Pain. SIT DOWN prior to taking this medication. 22 Tablet 03/01/20 23 Suspended Additional Information atorvastatin (LIPITOR) 80 mg tabletIndications:NS STANLEY (non-ST elevated myocardial infarction) (HC) Take 1 Tablet (80 mg) by mouth at bedtime. 100 Tablet 3 03/08/20 23 Suspended Additional Information predniSONE (DELTASONE) 20 mg tabletIndications:CO PD with acute exacerbation (HC) Take 2 Tablets (40 mg) by mouth once daily with a meal for 5 days. Start as needed for severe SOB. 10 Tablet 2 03/08/20 23 024 Discontinued( Pharmacist change per medication history (E-cancel not sent)) predniSONE (DELTASONE) 10 mg tabletIndications:Ch ronic obstructive pulmonary disease, unspecified COPD type (HC) Take 40 mg daily for 3 days, then 30 mg daily for 3 days, then 20 mg daily for 3 days, then 10 mg daily for 3 days 30 Tablet 05/13/20 23 024 Discontinued( Pharmacist change per medication history (E-cancel not sent)) budesonide-formotero L (Symbicort) 80-4.5 mcg/actuation (80-4.5 mcg each actuation) inhalerIndications:C hronic obstructive pulmonary disease, unspecified COPD type (HC) Inhale 2 Puffs by mouth two times daily. 10.2 g 11 05/25/20 23 Suspended Additional Information tiotropium bromide (Spiriva Respimat) 2.5 mcg/actuation mist for inhalationIndication s:Chronic obstructive pulmonary disease, unspecified COPD type (HC) Inhale 2 Puffs by mouth once daily. 1 Each 11 05/25/20 Suspended Additional Information predniSONE (DELTASONE) 10 mg tabletIndications:Ch ronic obstructive pulmonary disease, unspecified COPD type (HC) Take 40 mg daily for 5 days, then 30 mg daily for 5 days, then 20 mg daily for 5 days, then 10 mg daily for 5 days 50 Tablet 08/12/19 24 024 Discontinued( Pharmacist change per medication history (E-cancel not sent)) nystatin (MYCOSTATIN) 100,000 unit/mL suspensionIndication s:Thrush Swish and swallow 5 mL (500,000 units) by mouth four times daily. 473 mL 08/30/19 24 024 Discontinued( Pharmacist change per medication history (E-cancel not sent)) albuterol HFA (Ventolin HFA) 90 mcg/actuation inhalerIndications:C hronic obstructive pulmonary disease, unspecified COPD type (HC) Inhale 1-2 Puffs by mouth every 4 hours if needed for Shortness Of Breath or Wheezing. 18 g 6 08/30/19 24 Suspended Additional Information Active Problems Problem Noted Date Diagnosed Date Symptomatic bradycardia 10/26/2023 CAD (coronary artery disease) 10/26/2023 Elevated troponin 10/26/2023 NSTEMI (non-ST elevated myocardial infarction) 0 02/28/2023 [...] 09/25/19 07 08/30/2018 Overview: counsels with Gypsy Avitia/ Farzad Conklin Major depressive disorder, r ecurrent episode, moderate 04/14/2011 Encounters Date Type Department Care Team Description 10/26/2023 1:51 PM CDT - Present Hospital Encounter [facility] [address] [place] [address] [facility] [place] [facility] Hospitalists [facility], MD Karlene Marquez, Chas Keenan MD Cardiovascular symptoms 10/26/2023 Telephone [facility] [address] [facility] [address] [place] [phone] Shlomo Kovacs MD troponin positive 10/26/2023 Telephone [facility] [address] [facility] [address] [place] [phone] Shlomo Kovacs MD symptomatic bradycardia 09/16/2023 4:00 PM REGIONAL COORDINATOR Ancillary Procedure [facility] [address] [place] [address] 09/16/2023 Travel 09/10/2023 Telephone [facility] [address] [place] [address] Zoey Watters MD Prior Authorization (albuterol HFA (Ventolin HFA) 90 mcg/actuation inhaler No PA Required [id number]) 08/30/2023 1:30 PM REGIONAL COORDINATOR Office Visit [address] [address] Zoey Watters MD Hospital F/U (improvement of symptoms) 08/30/2023 Telephone [facility] [address] [place] [address] Zoey Watters MD Medication Management (nystatin (MYCOSTATIN) 100,000 unit/mL suspension) 08/30/2023 Travel 08/25/2023 Orders Only [facility] Scanner 1 scan: (1-Ord) INCOMING RECORDS-EKG, [facility], 08/25/2023 08/25/2023 Orders Only [facility] Scanner 1 scan: (1-Ord) INCOMING RECORDS-LABS, [facility], 08/25/2023 08/16/2023 Orders Only [facility] Scanner 1 scan: (1-Ord) [place], XR CHEST 2V, 08/16/2023 08/16/2023 Nurse Triage [facility] [address] [place] [address] Zoey Watters MD Cough 08/13/2023 Refill [facility] [address] [place] [address] Zoey Watters MD Refill Request (Ventolin Hfa) 08/12/2023 3:00 PM REGIONAL COORDINATOR Office Visit [facility] [address] [place] [address] Wilfred Horton MD Follow Up (COPD) 08/12/2023 Travel from Last 3 Months Immunizations Name Administration Dates Next Due AMB Influenza, IIV4 PF (=>6 mos Flulaval,Fluzone Fluarix)(Flu Clinic Only) 05/20/2017 COVID-19 Vaccine Spikevax (M oderna 50mcg/0.5mL) 12YO+ [id number] Formula PF 05/18/2023 COVID-19 vaccine (Pfizer-Bio NTech [...] Sign Reading Time Taken Comments Blood Pressure 174/128 10/28/2023 6:24 AM CDT Pulse 109 10/28/2023 6:24 AM CDT Temperature 36.5 ??C (97.7 ??F) 10/28/2023 2:16 AM CD T Respiratory Rate 18 10/28/2023 2:16 AM CDT Oxygen Saturation 94% 10/28/2023 6:24 AM CDT Inhaled Oxygen Concentration - - Weight 61.1 kg (134 lb 9.6 oz) 10/27/2023 6:00 A M CDT Height 158 cm (5' 2.2) 08/12/2023 2:53 PM REGIONAL COORDINATOR Body Mass Index 24.46 08/12/2023 2:53 PM REGIONAL COORDINATOR Plan of Treatment Upcoming Encounters Date Type Department Care Team (Late st Contact Info) Description 11/11/2023 2:00 PM CDT Office Visit [facility] [address] [place] [address] Wilfred Horton MD [address] [address] 11/17/2023 2:15 PM CDT Appointment [facility] [address] [place] [address] Health Maintenance Due Date Last Done Comments [...] Additional history exists Lipids for age 45-75 10/25/2028 10/26/2023, 03/01/2023, 02/05/2023, Additional history exists Colonoscopy through age 76 [...] Completed 02/06/20, 10/02/2021 COVID-19 vaccine series Completed 05/18/20, 05/22/2022, 12/08/2021, Additional history exists Procedures The patient is currently admitted. The information in this section might not be complete until the patient is discharged. Procedure Name Priority Date/Time Associated Diagnosis Comments GLUCOSE METER Timed 10/28/2023 7:41 AM CDT SCAN-CARDIAC STRIP 10/28/2023 6: 21 AM CDT SCAN-CARDIAC STRIP 10/28/2023 2: 13 AM CDT GLUCOSE METER Timed 10/27/2023 9:44 PM CDT GLUCOSE METER Timed 10/27/2023 5:55 PM CDT GLUCOSE METER Timed 10/27/2023 4:00 PM CDT GLUCOSE METER Timed 10/27/2023 11:47 AM CDT HCHG ACTIVATED CLOTTING TM CV Timed 10/27/2023 10:46 AM CDT CVL CORONARY ANGIOGRAM POSS PCI Routine 10/27/2023 10:41 AM CDT Cardiovascular symptoms SCAN CORRESP-EKG RESULTS 10/27/2023 10:13 AM CDT SCAN-CARDIAC STRIP 10/27/2023 9: 04 AM CDT GLUCOSE METER Timed 10/27/2023 7:38 AM CDT APTT Today 10/27/2023 7:33 AM CDT HEMATOCRIT Early AM 10/27/2023 7:33 AM CDT HEMOGLOBIN Early AM 10/27/2023 7:33 AM CDT PLATELET COUNT Early AM 10/27/2023 7:33 AM CDT SCAN-CARDIAC STRIP 10/27/2023 6: 04 AM CDT APTT Today 10/27/2023 12:52 AM CDT TROPONIN T (HS) ONE TIME Timed 10/27/2023 12:52 AM CDT GLUCOSE METER Timed 10/26/2023 10:15 PM CDT SCAN-CARDIAC STRIP 10/26/2023 7: 16 PM CDT EKG 12 LEAD Routine 10/26/2023 5:12 PM CDT GLUCOSE METER Timed 10/26/2023 4:49 PM CDT LIPID PANEL MARILYN 10/26/2023 4:18 PM CDT T4,FREE MARILYN 10/26/2023 4:18 PM CDT TSH MARILYN 10/26/2023 4:18 PM CDT TROPONIN T (HS) ACUTE W/2HR REFLEX STAT 10/26/2023 4:18 PM CDT APTT Timed 10/26/2023 4:18 PM CDT PROTIME-INR MARILYN 10/26/2023 4:18 PM CDT MAGNESIUM Today 10/26/2023 4:18 PM CDT CBC W PLT NO DIFF Today 10/26/2023 4:1 8 PM CDT BASIC METABOLIC PANEL Today 10/26/2023 4:18 PM CDT SCAN-CARDIAC STRIP 10/26/2023 3: 18 PM CDT SCAN-CARDIAC STRIP 10/26/2023 2: 57 PM CDT XR MAMMO MARIO BILAT SCREEN Routine 09/16/2023 3:48 PM REGIONAL COORDINATOR Visit for screening mammogram HEMOGLOBIN A1C Routine 08/30/2023 2:34 PM REGIONAL COORDINATOR Type 2 diabetes mellitus without complication, without long-term current use of insulin (HC) ALT (SGPT) Routine 08/30/2023 2:34 PM REGIONAL COORDINATOR Transaminitis AST (SGOT) Routine 08/30/2023 2:34 PM REGIONAL COORDINATOR Transaminitis SCAN CORRESP-EKG RESULTS 08/25/2023 12:00 AM REGIONAL COORDINATOR SCAN CORRESP-LABORATORY RESULTS 08/25/2023 12:00 AM REGIONAL COORDINATOR SCAN-RADIOLOGY REPORT 08/16/2023 12:00 AM REGIONAL COORDINATOR COLONOSCOPY SCREENING Routine 11/04/2021 1:22 PM CDT [...] Recently Relevant to Health Maintenance Results * (ABNORMAL) GLUCOSE METER (10/28/2023 7:41 AM CDT) Only the most recent of8 resultswithin the time period is included. GLUCOSE METER 145(H) 65 - 100 mg/dL 10/28/2023 7:41 AM CDT [facility] [employer] [facility] Blood BLOOD SPECIMEN / Unknown 10/28/2023 7:41 AM CDT 10/28/2023 7:41 AM CDT Chas Soler MD CHEMISTRY [facility] [address] [place] [address], * SCAN-CARDIAC STRIP (10/28/2023 6:21 AM CDT) Scanner OTHER * SCAN-CARDIAC STRIP (10/28/2023 2:13 AM CDT) Scanner OTHER * (ABNORMAL) ACTIVATED CLOTTING TIME [id number] ACT (10/27/2023 10:46 AM CDT) ACTIVATED CLOTTING TIME, POCT 139(H) 74 - 125 sec 10/27/2023 4:32 PM CDT [facility] Blood BLOOD SPECIMEN / Unknown 10/27/2023 10:46 AM CDT 10/27/2023 4:32 PM CDT Chas Soler MD HEMATOLOGY [facility] [address] [place] [id number], * CVL CORONARY ANGIOGRAM POSS PCI (10/27/2023 10:41 AM CDT) Anatomical Region Laterality Modality Other 10/27/2023 10:4 1 AM CDT Narrative Transcriptions Mg Valiente MD - 10/27/2023 11:08 AM CDT [facility] Cardiac Catheterization Report Name: ANTONIETA FARAH Event Date: 10/27/2023 10:41 [employer] ID #: [id number] SARAH #: [id number] Diagnostic Physician: Tarun VALIENTE [facility] Referring Physician: Zoey Watters Date: 1960 Gender: Female Age: 63 Summary/Conclusions PRESENTATION / INDICATIONS * Urgent * NonSTEMI VASCULAR ACCESS * Using ultrasound guidance and a percutaneous technique, the right commonfemoral artery was accessed. Ultrasound was used to confirm vesselpatency, localizing needle into the lumen of the vessel. An image wassaved for the medical record. DIAGNOSTIC SUMMARY ? The LMCA is free of significant disease. ? The LAD has mild luminal irregularities. ? The Circumflex has mild luminal irregularities. ? The RCA is totally occluded in the mid vessel with 100% stenosis in theRPAV ? Incidentally noted severe disease in RFA RECOMMENDATIONS & PLAN * Medical Rx Consent & [place] Protocol The risks, benefits, and alternatives of the procedure were discussed withthe patient and written informed consent was obtained. [place] protocol was followed. TIME OUT conducted just prior tostarting procedure confirmed patient identity, site/side, procedure,patient position, and availability of correct equipment and implants (ifapplicable). Staff Name Title Tarun VALIENTE Diagnostic Area Captain Kobe Gonzales Fellow Terri Nuñez RN Nurse Perry Carrington CVT Scrub Kelsy Kruger CVT Monitor Procedures ? Ultrasound Guided Vascular Access ? Coronary Angiogram ? Femoral Angio for Possible Closure Device Procedure Comments RFA angio showed severe disease. No closure device used. Manual sheathhold. Diagnostic Findings * Left Main Coronary Artery ? The LMCA is free of significant disease. * Left Anterior Descending ? The LAD has mild luminal irregularities. * Circumflex ? The Circumflex has mild luminal irregularities. * Right Coronary Artery ? The RCA is totally occluded. ? 100% stenosis in the RPAV. Lesion Information Lesion # Vessel Segment Lesion Length Lesion Details RPAV Hemodynamics State: Baseline Pressures (mmHg) Site Systolic Diastolic End Diastolic A Wave V Wave Mean AO 85 52 67 LV 98 12 18 LV 99 12 22 AO 103 59 74 Procedure Details Estimated Blood Loss: < 30 ml Specimen Collected: None Level of Sedation Achieved: Moderate Procedure Start: 10:41 Procedure End: 11:01 Procedure Time: 20 min Cumulative Air Kerma: mGy DAP: uGy/M2 Physiologic Data Weight: 61.1 kg BSA: 1.61 m2 Vascular Access Time Access Sheath Size 10:42 Right Femoral Artery, sheath inserted Complications ? No Complications Medications Ordered and Administered Start Time Stop Time Medication Dose Units Route Ordered By Given By 10:33 Fentanyl 25 mcg IV Tarun Valiente Connie RN 10:33 Versed 1 mg IV Tarun Valiente Connie RN 10:38 O2 3 l per min Nasal cannula Tarun Valiente Connie RN 10:42 1% Lidocaine 10 ml Subcut Tarun Valiente Muhammad Saad 10:50 NS 0.9 500 ml IV Kobe Gonzales Connie RN I personally monitored the patient?s conscious sedation during theprocedure. Conscious sedation starts with the first sedation medication dose ofFentanyl or Versed and ends when the procedure is completed, the patientis stable for recovery status, and the physician or other qualified healthcare professional providing the sedation ends personal [id number] time with the patient. The medications listed above were verbally ordered by me and read back tome as documented above. Refer to the procedure log report for additional case details. electronically signed on 10/27/2023 11:08:04 AM with status of Final Connor Valiente MD [facility] [address] [place] [place] [id number] [place] [address] (p) [phone](f) Provider Referring CV IMAGING * SCAN CORRESP-EKG RESULTS (10/27/2023 10:13 AM CDT) Only the most recent of2 resultswithin the time period is included. Narrative 10/27/2023 10:13 AM CDT Ordered by an unspecified provider. Other Clinical Staff OTHER * SCAN-CARDIAC STRIP (10/27/2023 9:04 AM CDT) Scanner OTHER * PLATELET COUNT (10/27/2023 7:33 AM CDT) Pathologist [facility] PLATELET COUNT 248 140 - 440 thou/cu mm 10/27/2023 8:05 AM CDT [facility] MPV 8.8 6.5 - 11.0 fL 10/27/2023 8:05 AM CDT [facility] Blood BLOOD SPECIMEN / Unknown Venipuncture / Unknown 10/27/2023 7:33 AM CDT 10/27/2023 7:42 AM CDT Narrative [facility] - 10/27/2023 8:05 AM CDT Every morning while on IV heparin. Every morning while on IV heparin. Necessary every morning while on IV heparin. Chas Soler MD HEMATOLOGY [facility] [address] [place] [address], * (ABNORMAL) HEMOGLOBIN (10/27/2023 7:33 AM CDT) HEMOGLOBIN 11.6(L) 12.0 - 16.0 g/dL 10/27/2023 8:05 AM CDT [facility] MCV 94 80 - 100 fL 10/27/2023 8:05 AM CDT [facility] Blood BLOOD SPECIMEN / Unknown Venipuncture / Unknown 10/27/2023 7:33 AM CDT 10/27/2023 7:[address] [facility] - 10/27/2023 8:05 AM CDT Every morning while on IV heparin. Every morning while on IV heparin. Necessary every morning while on IV heparin. Chas Soler MD HEMATOLOGY Performing Organization Address City/[facility]/ZIP Co de Phone Number [facility] [address] [place] [address], * HEMATOCRIT (10/27/2023 7:33 AM CDT) HEMATOCRIT 36.0 33.0 - 51.0 % 10/27/2023 8:05 AM CDT [facility] Blood BLOOD SPECIMEN / Unknown Venipuncture / Unknown 10/27/2023 7:33 AM CDT 10/27/2023 7:[address] [facility] - 10/27/2023 8:05 AM CDT Every morning while on IV heparin. Every morning while on IV heparin. Necessary every morning while on IV heparin. Chas Soler MD HEMATOLOGY Performing Organization Address City/[facility]/ZIP Co de Phone Number [facility] [address] [place] [address], * (ABNORMAL) APTT (10/27/2023 7:33 AM CDT) Only the most recent of3 resultswithin the time period is included. APTT 56(H) 28 - 36 sec 10/27/2023 8:02 AM CDT [facility] Blood BLOOD SPECIMEN / Unknown Venipuncture / Unknown 10/27/2023 7:33 AM CDT 10/27/2023 7:41 AM CDT Narrative [facility] - 10/27/2023 8:02 AM CDT Therapeutic Range: 57-87 seconds Chas Soler MD HEMATOLOGY Performing Organization Address City/[facility]/[place] Co de Phone Number [facility] [address] [place] [address], * SCAN-CARDIAC STRIP (10/27/2023 6:04 AM CDT) Scanner OTHER * (ABNORMAL) TROPONIN T (HS) ONE TIME (10/27/2023 12:52 AM CDT) [facility] TROPONIN T HS 245(H) 6-10 ng/L ng/L 10/27/2023 1:44 AM CDT [facility] Blood BLOOD SPECIMEN / Unknown Venipuncture / Unknown 10/27/2023 12:52 AM CDT 10/27/2023 1:13 AM CDT Obi Ruiz MD CHEMISTRY Performing Organization Address [facility]/[place] Co de Phone Number [facility] [address] [place] [address], * SCAN-CARDIAC STRIP (10/26/2023 7:16 PM CDT) Scanner OTHER * EKG 12 LEAD (10/26/2023 5:12 PM CDT) [facility] Interpretation Normal sinus rhythm Low voltage QRS Borderline ECG When compared with ECG of 28-FEB-2023 05:47, Non-specific change in ST segment in Inferior leads T wave inversion no longer evident in Inferior leads T wave inversion no longer evident in Anterolateral leads BEYOND NOW Ventricular Rate 100 BPM BEYOND NOW Atrial Rate 100 BPM BEYOND NOW P-R Interval 126 ms BEYOND NOW QRS Duration 94 ms BEYOND NOW QT 360 ms BEYOND NOW QTc 464 ms BEYOND NOW P [place] 76 degrees BEYOND NOW R [place] 81 degrees BEYOND NOW T [place] 61 degrees BEYOND NOW 10/26/2023 5:12 PM CDT 10/27/2023 5:40 PM CDT Obi Ruiz MD EKG ORD BEYOND NOW [place], [place] * (ABNORMAL) TROPONIN T (HS) ACUTE W/2HR REFLEX (10/26/2023 4:18 PM CDT) TROPONIN T HS 231(H) 6-10 ng/L ng/L 10/26/2023 5:22 PM CDT [facility] Blood BLOOD SPECIMEN / Unknown Venipuncture / Unknown 10/26/2023 4:18 PM CDT 10/26/2023 4:51 PM CDT Narrative [facility] - 10/26/2023 5:22 PM CDT hs-cTnT (Elecsys Troponin T Gen 5) concentration (s) above the sex-specific 99th percentile (16 ng/L or greater for males or 11 ng/L or greater for females) are indicative of myocardial injury. If initial hs-cTnT <=100 ng/L at presentation, a 0h/2h ABSOLUTE (ng/L) delta change (rising or falling) of >=10 ng/L suggests a significant change, whereas a 0h/2h delta change <=3 ng/L suggests no significant change. If initial hs-cTnT >100 ng/L at presentation, a 0h/2h/ RELATIVE (percent, %) delta change of 20% is suggested to distinguish patients with acute vs. chronic myocardial injury. There are multiple etiologies that can cause hs-cTnT increases above the 99th percentile (myocardial injury) other than acute myocardial infarction. Clinical context and careful clinical evaluation are critical for diagnosis and risk-stratification. The diagnosis of acute myocardial infarction requires a rising and/or falling pattern in hs-cTnT concentrations with at least one value above the sex-specific 99th percentile PLUS at least one of the following clinical criteria: ischemic symptoms, new or presumed new significant ST-T wave changes or new LBBB, development of pathological Q waves, imaging evidence of new loss of viable myocardium or new regional wall motion abnormality, or identification of intracoronary atherothrombosis or an acute angiographic culprit on coronary angiography. In appropriate low-risk patients with a non-ischemic electrocardiogram without active chest pain with a symptom onset >3-hours without recurrence, a single initial hs-cTnT<6 ng/L identifies patient with a very low risk in emergency department patient population. Obi Ruiz MD CHEMISTRY [facility] [address] [place] [address], * TSH FOR ADD ON (10/26/2023 4:18 PM CDT) TSH 1.00 0.27 - 4.20 uIU/mL 10/26/2023 5:54 PM CDT [facility] Blood BLOOD SPECIMEN / Unknown Venipuncture / Unknown 10/26/2023 4:18 PM CDT 10/26/2023 4:[address] [facility] - 10/26/2023 5:54 PM CDT In Adults, TSH values between 5.00 and 10.00 uIU/ml do not necessarily indicate the presence of Hypothyroidism. Correlation with clinical findings such as presence of goiter and/or Thyroperoxidase (TPO) Antibody may be helpful. For more information please refer to IBIS 2004; 291: 228-238. Chas Soler MD CHEMISTRY [facility] [address] [place] [address], * CBC W PLT NO DIFF (10/26/2023 4:18 PM CDT) WHITE BLOOD COUNT 8.0 4.5 - 11.0 thou/cu mm 10/26/2023 4:58 PM CDT [facility] RED BLOOD COUNT 4.05 4.00 - 5.20 mil/cu mm 10/26/2023 4:58 PM CDT [facility] HEMOGLOBIN 12.6 12.0 - 16.0 g/dL 10/26/2023 4:58 PM CDT [facility] HEMATOCRIT 38.0 33.0 - 51.0 % 10/26/2023 4:58 PM CDT [facility] MCV 94 80 - 100 fL 10/26/2023 4:58 PM CDT [facility] MCH 31.1 26.0 - 34.0 pg 10/26/2023 4:58 PM CDT [facility] MCHC 33.2 32.0 - 36.0 g/dL 10/26/2023 4:58 PM CDT [facility] RDW 13.1 11.5 - 15.5 % 10/26/2023 4:58 PM CDT [facility] PLATELET COUNT 268 140 - 440 thou/cu mm 10/26/2023 4:58 PM CDT [facility] MPV 9.0 6.5 - 11.0 fL 10/26/2023 4:58 PM CDT [facility] NRBC 0.0 % 10/26/2023 4:58 PM CDT [facility] ABS NRBC 0.0 thou /cu mm 10/26/2023 4:58 PM CDT [facility] Blood BLOOD SPECIMEN / Unknown Venipuncture / Unknown 10/26/2023 4:18 PM CDT 10/26/2023 4:51 PM CDT Chas Soler MD HEMATOLOGY [facility] [address] [place] [address], * (ABNORMAL) PROTIME-INR (10/26/2023 4:18 PM CDT) INR 1.1 <1.3 10/26/2023 5:11 PM CDT [facility] PROTIME 12.5(H) 10.3 - 12.3 sec 10/26/2023 5:11 PM CDT [facility] Blood BLOOD SPECIMEN / Unknown Venipuncture / Unknown 10/26/2023 4:18 PM CDT 10/26/2023 4:51 PM CDT Narrative [facility] - 10/26/2023 5:11 PM CDT ?Therapeutic Range 2.0-3.0 for most anticoagulated patients 2.5-3.5 or 4.0 for high risk patients The INR is only used for patients on stable oral anticoagulant therapy. It makes no significant contribution to the diagnosis or treatment of patients whose Protime is prolonged for other reasons. INR results are increased when heparin levels exceed 1.0 U/mL, which corresponds to an aPTT >125 seconds if the patient is on UFH. Chas Soler MD HEMATOLOGY Performing Organization Address [facility]/[employer] Co de Phone Number [facility] [address] [place] [address], * T4,FREE (10/26/2023 4:18 PM CDT) [facility] T4,FREE 1.28 0.93 - 1.70 ng/dL 10/26/2023 5:54 PM CDT [facility] Blood BLOOD SPECIMEN / Unknown Venipuncture / Unknown 10/26/2023 4:18 PM CDT 10/26/2023 4:51 PM CDT Chas Soler MD CHEMISTRY Performing Organization Address [facility] de Phone Number [facility] [address] [place] [address], * MAGNESIUM (10/26/2023 4:18 PM CDT) [facility] MAGNESIUM 1.7 1.6 - 2.4 mg/dL 10/26/2023 5:22 PM CDT [facility] Blood BLOOD SPECIMEN / Unknown Venipuncture / Unknown 10/26/2023 4:18 PM CDT 10/26/2023 4:51 PM CDT Chas Soler MD CHEMISTRY Performing Organization Address [facility] [employer] de Phone Number [facility] [address] [place] [address], [place] * (ABNORMAL) LIPID PANEL (10/26/2023 4:18 PM CDT) [facility] CHOLESTEROL,TOTAL 108 100 - 199 mg/dL 10/26/2023 5:54 PM CDT [facility] Comment: Cholesterol, Total Reference Ranges Desirable <200 mg/dL Borderline 200-239 mg/dL High >=240 mg/dL TRIGLYCERIDES 65 <150 mg/dL 10/26/2023 5:54 PM CDT [facility] HDL CHOLESTEROL 40(L) >40 mg/dL 5:54 PM CDT [facility] NON-HDL CHOLESTEROL 68 <145 mg/dl 10/26/2023 5:54 PM CDT [facility] CHOL/HDL RATIO 2.70 <4.50 10/26/2023 5:54 PM CDT [facility] LDL CHOLESTEROL 55 <=130 mg/dL 10/26/2023 5:54 PM CDT [facility] VLDL CHOLESTEROL 13 <=30 mg/dL 10/26/19 24 5:54 PM CDT [facility] Blood BLOOD SPECIMEN / Unknown Venipuncture / Unknown 10/26/2023 4:18 PM CDT 10/26/2023 4:51 PM CDT Obi Ruiz MD CHEMISTRY [facility] [address] [place] [address], * (ABNORMAL) BASIC METABOLIC PANEL (10/26/2023 4:18 PM CDT) SODIUM 138 136 - 145 mmol/L 10/26/2023 5:22 PM CDT [facility] POTASSIUM 4.3 3.5 - 5.1 mmol/L 10/26/2023 5:22 PM CDT [facility] CHLORIDE 106 98 - 107 mmol/L 10/26/2023 5:22 PM CDT [facility] CO2,TOTAL 22 22 - 29 mmol/L 10/26/2023 5:22 PM CDT [facility] ANION GAP 10 5 - 18 10/26/2023 5:22 PM CDT [facility] GLUCOSE 167(H) 70 - 99 mg/dL 10/26/2023 5:22 PM CDT [facility] CALCIUM 8.3(L) 8.8 - 10.2 mg/dL 10/26/2023 5:22 PM CDT [facility] BUN 16 8 - 23 mg/dL 10/26/2023 5:22 PM CDT [facility] CREATININE 0.75 0.50 - 0.90 mg/dL 10/26/2023 5:22 PM CDT [facility] BUN/CREAT RATIO 21(H) 10 - 20 5:22 PM CDT [facility] eGFR 90(L) >90 mL/min/1.7 3m2 10/26/2023 5:22 PM CDT [facility] Comment:As of 2021, eG FR is calculated by the CKD-EPI creatinine equation without race adjustment. ??eGFR can be influenced by muscle mass, exercise, and diet. ??The reported eGFR is an estimation only and is only applicable if the renal function is stable. Blood BLOOD SPECIMEN / Unknown Venipuncture / Unknown 10/26/2023 4:18 PM CDT 10/26/2023 4:51 PM CDT Chas Soler MD [facility]MISTRY [facility] [address] [place] [address], * SCAN-CARDIAC STRIP (10/26/2023 3:18 PM CDT) Scanner OTHER * SCAN-CARDIAC STRIP (10/26/2023 2:57 PM CDT) Scanner OTHER * XR MAMMO MARIO BILAT SCREEN (09/16/2023 3:48 PM REGIONAL COORDINATOR) Anatomical Region Laterality Modality BREASTS, Breast Left, Breast Right Bilateral Mammography Impressions 09/20/2023 1:44 PM REGIONAL COORDINATOR ??There is no radiographic evidence for malignancy. ??Recommend annual mammograms. MAMMOGRAM ASSESSMENT: ??ACR 1 Negative PATIENTS: You will also receive a letter with your examination results in an easy to read format. ??If you have questions about your results, please contact your referring provider. Narrative 09/20/2023 1:44 PM REGIONAL COORDINATOR For Patients: As a result of the Cures Act, medical imaging exams and procedure reports are released immediately into your electronic medical record. You may view this report before your referring provider. If you have questions, please contact your health care provider. XR MAMMO MARIO BILAT SCREEN [[id number]] CLINICAL HISTORY: ??This is an asymptomatic 63 y.o. patient. INDICATION FOR EXAM: Mammogram Screening. TECHNIQUE: CC & MLO views were obtained. ??This study was evaluated with the assistance of Computer-Aided Detection. Breast Tomosynthesis was used in interpretation. COMPARISON FILM: Yes [facility] FINDINGS: ??The breasts have scattered areas of fibroglandular density. There are no dominant masses, suspicious micro calcifications or areas of architectural distortion. Zoey Watters MD MAMMO * (ABNORMAL) ALT (SGPT) (08/30/2023 2:34 PM REGIONAL COORDINATOR) ALT (SGPT) 123(H) 10 - 35 IU/L 08/30/2023 9:48 PM REGIONAL COORDINATOR [facility] Blood BLOOD SPECIMEN / Unknown Venipuncture / Unknown 08/30/2023 2:34 PM REGIONAL COORDINATOR 08/30/2023 2:35 PM REGIONAL COORDINATOR Zoey Watters MD CHEMISTRY [facility] [address] [place] [address], * (ABNORMAL) AST (SGOT) (08/30/2023 2:34 PM REGIONAL COORDINATOR) AST (SGOT) 41(H) 10 - 35 IU/L 08/30/2023 9:48 PM REGIONAL COORDINATOR [facility] Blood BLOOD SPECIMEN / Unknown Venipuncture / Unknown 08/30/2023 2:34 PM REGIONAL COORDINATOR 08/30/2023 2:35 PM REGIONAL COORDINATOR Zoey Watters MD CHEMISTRY Performing Organization Address City/[facility]/ZIP Co de Phone Number [facility] [address] [place] [address], * HEMOGLOBIN A1C MONITORING (POCT) (08/30/2023 2:34 PM REGIONAL COORDINATOR) Pathologist [facility] HEMOGLOBIN A1C MONITORING (POCT) 6.3 <=6.4 % 08/30/2023 2:44 PM REGIONAL COORDINATOR [facility] Blood BLOOD SPECIMEN / Unknown Venipuncture / Unknown 08/30/2023 2:34 PM REGIONAL COORDINATOR 08/30/2023 2:35 PM REGIONAL COORDINATOR Narrative [facility] - 08/30/2023 2:44 PM REGIONAL COORDINATOR ? (<=6.9%) ? Indicates good control ? [...] Zoey Watters MD CHEMISTRY Performing Organization Address City/[facility]/ZIP Co de Phone Number [facility] [address] [place] [address], * SCAN CORRESP-LABORATORY RESULTS (08/25/2023 12:00 AM REGIONAL COORDINATOR) Scanner OTHER * SCAN-RADIOLOGY REPORT (08/16/2023 12:00 AM REGIONAL COORDINATOR) Anatomical Region Laterality Modality Other Scanner OTHER * COLONOSCOPY (11/04/2021 1:42 PM CDT) 11/04/2021 1:42 PM CDT Narrative Transcriptions Mg Martins MD - 11/04/2021 2:25 PM CDT Patient Name: Antonieta Farah Procedure Date: 11/04/2021 Gender: Female Date of [...] adequate candidate for conscious sedation. The [id number] was passed through the anus and advanced [...] 1:42 PM Procedure Code(s): --- Professional --- 41308, Colonoscopy, flexible; with removalof tumor(s), polyp(s), or other lesion(s) bysnare technique Diagnosis Code(s): --- Professional --- Z12.11, Encounter for screening formalignant neoplasm of colon K62.1, Rectal polyp CPT copyright 2020 [employer]. All rights reserved. The codes documented in this report are preliminary and upon drill operator automatic reviewmay be revised to meet current compliance requirements. Scope In: 1:58:22 PM Scope Withdrawal Time 0 hours 8 minutes 16 seconds Scope Out: 2:16:54 PM Mg Martins MD PROCEDURE ORD * HPV HIGH RISK (10/02/2021 4:27 PM CDT) TYPE 16 Negative Negative 10/08/2021 11:18 AM CDT [facility] TYPE 18 Negative Negative 10/08/2021 11:18 AM CDT [facility] OTHER HIGH RISK TYPES Negative Negative 10/08/2021 11:18 AM CDT [facility] Other (Cervical) Non-Blood / Unknown 10/02/2021 4:27 PM CDT 10/06/2021 8:55 AM CDT Narrative [facility] - 10/08/2021 11:18 AM CDT HPV types 16, 18, 31, 33, 35, 39, 45, 51, 52, 56, 58, 59, 66 and 68 DNA were undetectable or below the pre-set threshold. Methodology: Lizbet Rubi 4800 HPV Test Zoey Watters MD MICROBIOLOGY [facility] [address] [place] [address], [place] * OCCULT BLOOD IFOBT STOOL (04/25/2019 2:00 PM CDT) STOOL BLOOD ,IFOBT Negative Negative 04/25/2019 3:17 PM CDT [facility] Stool STOOL SPECIMEN / Unknown Non-Blood / Unknown 04/25/2019 2:00 PM CDT 04/25/2019 3:04 PM CDT [facility] [address] [place] [address], * ANTI HIV 1/2 (04/04/2013 12:19 PM CDT) ANTI HIV 1/2 Non-reacti ve [facility] Blood specimen (specimen) BLOOD SPECIMEN / Unknown 04/04/2013 12:19 PM CDT 04/04/2013 12:14 PM CDT Evangelina Gil NP [facility]END OUT[facility] [place]NAL ZIP [address] [place] [address] * ANTI HCV (11/24/2007 1:30 PM CDT) ANTI HCV Non-reacti ve [facility] Blood specimen (specimen) BLOOD SPECIMEN / Unknown 11/24/2007 1:30 PM CDT 11/24/2007 1:24 PM CDT Giovanni Blakely MD [facility]END OUT[facility] [place] ZIP [address] [address] from Last 3 Months or Most Recently Relevant to Health Maintenance Advance Directives * Full Code (Latest Code Status on File) Date Activated Date Inactivated Comments 10/26/2023 2:20 PM Question Answer Comments Code Status Discussion: Reviewed Preferences * Full Code Date Activated Date Inactivated Comments 02/28/2023 12:42 [...] 10:05 AM 11/23/2011 5:38 PM Care Teams Senior Materials Analyst Relationship Specialty Start Date End Date Zoey Watters MD [address] [place] [address] PCP - General Family Practice 02/06/21 [facility] Psychology 06/02/16 Charissa Lebron CNS Clinical Nurse Specialist 06/02/16
== END 2023-10-26 07:23 | disposition home or self-care (01) ==
LOC: AMB 10-28 09:04
PROVIDERS: PCP Family Medicine; Visit Provider Family Medicine
DX: R06.09 Other forms of dyspnea (principal)
CPT/HCPCS: A0425; A0427

== ENCOUNTER 2023-10-26 08:01 | Emergency (ER) | payer BC, SELFPAY ==
[2023-10-26] VITALS (35 sets, daily range): BP systolic 92–168; BP diastolic 65–119; PULSE 79–128; RESP 20–26; TEMP 36.2–36.8; O2SAT 90–96; BMI 25.6
--- NOTE | 2023-10-26 08:06 | ED_ITS ---
HPI - General Adult General Date Seen: 10/26/23 Chief complaint: Shortness of Breath/Dyspnea Stated complaint: Shortness of breath Time Seen by Provider: 10/26/23 08:06 History of Present Illness HPI narrative: 61-year-old female with a history of COPD, coronary disease, NSTEMI. Most recently seen in the ER on 08/16/[address] Jacobsen. 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 Positive for influenza. She is brought to the ER this morning by EMS. Report from EMS is that she woke up this morning the or the bathroom at about 430 and was very short of breath. She just could not catch her breath so called 911. When they arrived she was tachypneic with respiratory rate in the 30s. She had almost no lung sounds bilaterally and they were worried about bad COPD. They started her on BiPAP because of her work of breathing and gave her nebulizer. They tried to give her a DuoNeb but a lot of it was probably lost. They also gave her an albuterol neb. The nebs, combined with BiPAP have substantially help improve her work of breathing. She is no longer using accessory muscles. Respiratory rate is come down from 30 is to the 20s. Patient confirms that she just woke up this morning with short of breath. There was no antecedent symptoms. No recent cough. No fever. No chest pain. No known smoker allergy exposure. No swelling in her legs. No recent travel. She is not currently on prednisone and her she does not feel like her COPD has been flaring up lately. No palpitations. No chest pain or back pain. Related Data Home Medications Medication Instructions Recorded Confirmed acyclovir 5 % topical ointment 1 applic topical 02/27/23 albuterol sulfate 90 mcg/actuation 1 puff inhalation Q4H PRN 02/27/23 10/26/23 aerosol inhaler (Ventolin HFA) aripiprazole 5 mg tablet 5 mg PO DAILY 02/27/23 10/26/23 atorvastatin 20 mg tablet 20 mg PO DAILY 02/27/23 10/26/23 duloxetine 60 mg capsule,delayed 60 mg PO DAILY 02/27/23 10/26/23 release epinephrine 0.3 mg/0.3 mL 0.3 mg IM ONCE PRN 02/27/23 10/26/23 injection, auto-injector fenofibrate nanocrystallized 145 145 mg PO DAILY 02/27/23 10/26/23 mg tablet ipratropium 0.5 mg-albuterol 3 mg 3 ml inhalation Q4H PRN 02/27/23 10/26/23 (2.5 mg base)/3 mL nebulization soln metformin 500 mg tablet 1,000 mg PO BID 02/27/23 10/26/23 metoprolol succinate 50 mg 50 mg PO DAILY 02/27/23 10/26/23 tablet,extended release 24 hr tiotropium 2.5 mcg-olodaterol 2.5 2 puff inhalation DAILY 02/27/23 10/26/23 mcg/actuation mist for inhalation (Stiolto Respimat) valacyclovir 500 mg tablet 500 mg PO Q12H PRN 02/27/23 10/26/23 budesonide-formoterol HFA 80 inhalation 10/26/23 mcg-4.5 mcg/actuation aerosol inhaler (Symbicort) nystatin 100,000 unit/mL oral PO 10/26/23 suspension tiotropium bromide 2.5 2 puff inhalation DAILY 10/26/23 10/26/23 mcg/actuation mist for inhalation (Spiriva Respimat) Allergies Allergy/AdvReac Type Severity Reaction Status Date / Time bupropion [From Wellbutrin] Allergy Intermediate Verified 10/26/23 08:11 Latex, Natural Rubber Allergy Intermediate Verified 10/26/23 08:11 [facility] Social History Smoking Status: Never smoker Do you use any of these nicotine containing products: None How often do you have a drink containing alcohol: never AUDIT-C Alcohol total score: 0 Non-prescribed substance use: denies use Exam Narrative: Exam Narrative: Primary Survey: A- patent. Speaking clearly but a bit difficult to understand because a BiPAP mask. Phonation normal. No stridor. B- breathing easily with respiratory rate 22 on BiPAP. She is on 21% FiO2 and 10/5.. Are fairly diminished bilaterally. No definite wheezing. She is really not moving much air.. Oxygen saturation normal on room air C- no active bleeding. Blood pressure stable. Symmetric pulses and cap refill in 4 extremities. No edema D- alert and oriented x3. GCS 15. No focal deficits. Constitutional: Appears well-developed and well-nourished. Alert. Conversant. Mental status normal. Non toxic. HENT: Head: Atraumatic. Nose: Nose normal. Mouth/Throat: Oral mucosa is clear and moist. no trismus. Difficult to examine oropharynx because of BiPAP. Eyes: Conjunctivae normal. EOM normal. Pupils equal, round, and reactive to light. No scleral icterus. Neck: Normal range of motion. Neck supple. No tracheal deviation present. Cardiovascular: Normal rate, regular rhythm. No gallop. No friction rub. No murmur heard. Symmetric radial and DP artery pulses Pulmonary/Chest: Effort normal. No stridor. No respiratory distress. Diminished lung sounds bilaterally with almost no air movement. No wheezing.. No tendern ess. Abdominal: Soft. No distension. No mass. No tenderness. No rebound. No guarding. Musculoskeletal: RUE: Normal range of motion. No tenderness. No deformity LUE: Normal range of motion. No tenderness. No deformity RLE: Normal range of motion. No edema. No tenderness. No deformity LLE: Normal range of motion. No edema. No tenderness. No deformity Lymph: No cervical adenopathy. Neurological: Alert and oriented to person, place, and time. Normal strength. CN II-VII intact. No sensory deficit. GCS eye subscore is 4. GCS verbal subscore is 5. GCS motor subscore is 6. Normal coordination Skin: Skin is warm and dry. No rash noted. No pallor. Normal capillary refill. Psychiatric: Normal mood. Normal affect. Const: Vital Signs, click to edit/add: Vital Signs - 24 hr 10/26/23 08:04 10/26/23 08:18 10/26/23 08:30 Temperature 97.2 F L Pulse Rate 85 79 Pulse Rate [Pulse Oximeter] 91 Respiratory Rate 26 H Blood Pressure Blood Pressure [Le ft Upper Arm] 103/80 Pulse Oximetry 92 94 93 Oxygen Delivery Me thod BiPAP OxyMask Ambu-Bag Oxygen Flow Rate 2 2 10/26/23 08:37 10/26/23 08:44 10/26/23 08:45 Temperature Pulse Rate 85 89 88 Pulse Rate [Pulse Oximeter] Respiratory Rate Blood Pressure 168/119 H 101/70 Blood Pressure [Le ft Upper Arm] Pulse Oximetry 96 92 92 Oxygen Delivery Me thod OxyMask OxyMask OxyMask Oxygen Flow Rate 2 2 2 10/26/23 09:00 10/26/23 09:01 10/26/23 09:02 Temperature Pulse Rate 92 94 92 Pulse Rate [Pulse Oximeter] Respiratory Rate Blood Pressure 103/70 Blood Pressure [Le ft Upper Arm] Pulse Oximetry 92 91 91 Oxygen Delivery Me thod OxyMask Nasal Cannula Nasal Cannula Oxygen Flow Rate 2 1 1 10/26/23 09:15 10/26/23 09:30 10/26/23 09:31 Temperature Pulse Rate 88 89 91 Pulse Rate [Pulse Oximeter] Respiratory Rate Blood Pressure 92/66 Blood Pressure [Le ft Upper Arm] Pulse Oximetry 95 94 93 Oxygen Delivery Me thod Nasal Cannula Nasal Cannula Nasal Cannula Oxygen Flow Rate 1 1 1 10/26/23 09:32 10/26/23 09:41 10/26/23 09:45 Temperature 98.2 F Pulse Rate 90 91 Pulse Rate [Pulse Oximeter] Respiratory Rate Blood Pressure Blood Pressure [Le ft Upper Arm] Pulse Oximetry 94 94 Oxygen Delivery Me thod Nasal Cannula Nasal Cannula Oxygen Flow Rate 1 1 10/26/23 10:00 10/26/23 10:01 10/26/23 10:02 Temperature Pulse Rate 91 93 93 Pulse Rate [Pulse Oximeter] Respiratory Rate Blood Pressure 93/67 Blood Pressure [Le ft Upper Arm] Pulse Oximetry 95 94 94 Oxygen Delivery Me thod Nasal Cannula Nasal Cannula Nasal Cannula Oxygen Flow Rate 1 1 1 10/26/23 10:05 10/26/23 10:15 10/26/23 10:30 Temperature Pulse Rate 93 93 Pulse Rate [Pulse Oximeter] Respiratory Rate 20 Blood Pressure Blood Pressure [Le ft Upper Arm] Pulse Oximetry 92 94 Oxygen Delivery Me thod Nasal Cannula Nasal Cannula Oxygen Flow Rate 1 1 10/26/23 10:31 10/26/23 10:45 10/26/23 11:01 Temperature Pulse Rate 92 89 98 Pulse Rate [Pulse Oximeter] Respiratory Rate Blood Pressure 94/65 93/69 Blood Pressure [Le ft Upper Arm] Pulse Oximetry 94 93 90 Oxygen Delivery Me thod Nasal Cannula Nasal Cannula Nasal Cannula Oxygen Flow Rate 1 1 1 10/26/23 11:15 10/26/23 11:30 10/26/23 11:31 Temperature Pulse Rate 89 92 93 Pulse Rate [Pulse Oximeter] Respiratory Rate Blood Pressure 94/77 Blood Pressure [Le ft Upper Arm] Pulse Oximetry 90 93 95 Oxygen Delivery Me thod Nasal Cannula Nasal Cannula Nasal Cannula Oxygen Flow Rate 1 1 1 10/26/23 11:38 10/26/23 11:45 10/26/23 12:00 Temperature 97.5 F L Pulse Rate 92 90 Pulse Rate [Pulse Oximeter] Respiratory Rate Blood Pressure Blood Pressure [Le ft Upper Arm] Pulse Oximetry 95 94 Oxygen Delivery Me thod Nasal Cannula Nasal Cannula Oxygen Flow Rate 1 1 10/26/23 12:01 10/26/23 12:15 10/26/23 12:30 Temperature Pulse Rate 94 128 H 124 H Pulse Rate [Pulse Oximeter] Respiratory Rate Blood Pressure 97/65 Blood Pressure [Le ft Upper Arm] Pulse Oximetry 93 95 93 Oxygen Delivery Me thod Nasal Cannula Nasal Cannula Nasal Cannula Oxygen Flow Rate 1 1 1 10/26/23 12:32 10/26/23 12:45 Temperature Pulse Rate 123 H 117 H Pulse Rate [Pulse Oximeter] Respiratory Rate Blood Pressure 113/94 H Blood Pressure [Le ft Upper Arm] Pulse Oximetry 94 94 Oxygen Delivery Me thod Nasal Cannula Nasal Cannula Oxygen Flow Rate 1 1 Course Course ED Course: Recheck-nurse's note that she was a bit more anxious. She had a brief run of bradycardia and then a small tachycardic run on the monitor. I reviewed the rhythm strips there is so much artifact I can not determine underlying rhythm during bradycardia. I think she may have just had artifact obscuring some of her QRS is. The tachycardia does appear to be a narrow complex tachycardia but there is lot of artifact obscuring baseline. Could be sinus tach based on rate in the 120s. Consider other arrhythmia such as SVT or AFib. However would favor sinus tach Recheck-doing better on BiPAP. Respiratory rate around 20. I had ordered a DuoNeb but is not yet infused. There is a problem with a equipment. Recheck-RT is evaluated. There was a piece missing from the nebulizer set. Patient is not receive nebs and is doing better. We was able to wean off BiPAP back to nasal cannula. Oxygen saturations are actually about 92 or 93 on room air so RT put her on 1 L just for comfort. Reevaluation(s) Reevaluation #1: Recheck-10 30-updated patient and son. While we were in the room she had another episode refer she abruptly got short of breath and her heart rate was noted to drop down to about 30. She had a lot of artifact at the baseline again but this appears to be a third-degree heart block. We called for help but before nurses could even arrive and place pads or give atropine her heart rate rebounded and came up to about 110 and then settled in the 80s. Suspect the rebound was probably a adrenal and induced tachycardia. Pacer pads are placed and atropine at bedside in case she has more episodes of bradycardia. Reevaluation #2: Rechecked EKG (not during symptoms). Normal sinus rhythm. No evolving ischemia. Thyroid normal. Repeat troponin is trending up to 0.26 suggesting an STEMI. Reevaluation #3: Had another episode of bradycardia at about 12 10. Lasted a bit longer than previous. Long enough that nurses administer atropine 0.5 mg IV and bradycardia responded. Bradycardia resolved into sinus tach with heart rate in the 120s and 130s. Discussed again with Cardiology from [facility]. He he and I were working with the online access transfer center to expedite this patient's transfer. It had been inexplicably delayed due to systems problems with [facility]. We were able to expedite the transfer and the patient was assigned a bed while I was in the home. Patient transferred by EMS. At the time of transfer she had sinus tachycardia. Stable blood pressure. Oxygenation normal. Vital Signs Vital signs: Initial Vital Signs Temperature 97.2 F L 10/26/23 08:04 Temperature Source Temporal Artery Scan 10/26/23 08:04 Pulse Rate 91 10/26/23 08:04 Respiratory Rate 26 H 10/26/23 08:04 Blood Pressure 103/80 10/26/23 08:04 Blood Pressure Mean 87 10/26/23 08:04 Blood Pressure Position High-Fowlers 10/26/23 08:04 Pulse Oximetry 92 10/26/23 08:04 Oxygen Delivery Method BiPAP 10/26/23 08:04 Vital Signs Temperature 97.2 F L 10/26/23 08:04 Pulse Rate 91 10/26/23 08:04 Respiratory Rate 26 H 10/26/23 08:04 Blood Pressure 103/80 10/26/23 08:04 Pulse Oximetry 92 10/26/23 08:04 Oxygen Delivery Method BiPAP 10/26/23 08:04 Temperature 97.5 F L 10/26/23 11:38 Pulse Rate 117 H 10/26/23 12:45 Respiratory Rate 20 10/26/23 10:05 Blood Pressure 113/94 H 10/26/23 12:32 Pulse Oximetry 94 10/26/23 12:45 Oxygen Delivery Method Nasal Cannula 10/26/23 12:45 Oxygen Flow Rate 1 10/26/23 12:45 Medications Administered Medications: Discontinued Medications Generic Name Dose Route Start Last Admin Trade Name Freq PRN Reason Stop Dose Admin Albuterol 2.5 mg 10/26/23 11:13 10/26/23 11:20 Albuterol Sulfate 2.5 Mg/3 Ml Vial.Neb NEB 10/26/23 11:14 2.5 mg ONCE ONE Administration Albuterol/Ipratropium 1 neb 10/26/23 08:14 10/26/23 09:02 Iprat-Albut 0.5-2.5 Mg/3 Ml Neb IH 10/26/23 08:15 1 neb ONCE ONE Administration Aspirin 324 mg 10/26/23 12:22 10/26/23 12:34 Aspirin 81 Mg Tab.Chew PO 10/26/23 12:23 324 mg ONCE ONE Administration Atropine Sulfate 0.5 mg 10/26/23 11:13 10/26/23 12:14 Atropine 1 Mg/10 Ml Syringe IVP 0.5 mg ONCE PRN Administration Heparin Sodium (Porcine) 3,800 unit 10/26/23 12:41 10/26/23 12:43 Heparin 5,000 Unit/0.5 Ml Inj IVP 10/26/23 12:42 3,800 unit ONCE ONE Administration Heparin Sodium/Dextrose 25,000 unit in 500 mls @ 0 mls/hr 10/26/23 12:45 10/26/23 12:43 Heparin IV 750 unit/hr .Q0M LUZMARIA 15 mls/hr Administration Protocol Per Protocol Lorazepam 0.5 mg 10/26/23 08:38 10/26/23 08:48 Lorazepam 2 Mg/Ml Inj IVP 10/26/23 08:39 0.5 mg ONCE ONE Administration Methylprednisolone Sodium Succinate 125 mg 10/26/23 08:14 10/26/23 08:30 Methylprednisolone Sod Succ 62.5 Mg/Ml (125) IVP 10/26/23 08:15 125 mg ONCE ONE Administration Medical Decision Making [facility] Narrative Medical decision making narrative: This patient presents to the ER today for evaluation of abrupt onset of shortness of breath that began early this morning.. Differential was broad. She was has a history of COPD but not oxygen dependent, not currently on steroids. She had almost no lung sounds when EMS picked her up so they administer nebs and brought her in on BiPAP. Blood gas showed a venous pH is 735 with a pCO2 of 36, but this was drawn after she had been on BiPAP. Work of breathing had improved markedly while on BiPAP but still had very diminished lung sounds which when she arrived. She received IV steroids and nebulized bronchodilators here in the ER with improvement. We able to wean her off BiPAP. No palpitations at home. She did have some unusual heart rates on the monitor here in the ER that may have simply been anxiety and artifact. She had a 2nd event we were able to get a 2nd strip a bradycardia with a ventricular rate in the 20s and 30s. with a bit more of clear baseline and it does not show any definite P waves. Suspect either third-degree AV block or sick sinus syndrome. She had multiple episodes of bradycardia while here in the ER, at least 4 or 5. Most of them were very brief and self-limited but her final episode was more prolonged and required treatment with atropine. We considered possible ACS. EKG nonischemic but shows low voltage. Initial troponin normal. Delta troponin is rising up to 0.26. Repeat EKG does not show any sign of evolving ischemia. This is concerning for non ST elevation IN. Treated with aspirin and heparin here in the ER. She is not having any active chest pain but does have mild shortness of breath (which becomes much more severe during her episodes of bradycardia). EKG shows no evidence for pericarditis. Clinical presentation not suggestive of myocarditis. COVID/influenza/RSV PCR negative. Chest x-ray shows no evidence for pneumonia, pneumothorax, pulmonary edema, pleural effusion, rib fracture, cardiomegaly. Mediastinum is normal on the x-ray. The patient has no ripping or tearing pain through to the back and has symmetric pulses on exam, no other acute neuro findings so I doubt aortic dissection. Risk of radiation and contrast exposure would outweigh the benefit of CT angiogram. We considered PE for this patient. D-dimer is normal. She will be transferred by EMS to the cardiac floor at [place] for EP as well as ischemic cardiac evaluations. Lab Data Labs: Lab Results 10/26/23 10/26/23 10/26/23 Range/Units 08:18 08:18 08:18 WBC 10.59 Cancelled (4.50-11.00) K/uL RBC 4.37 Cancelled (4.00-5.20) m/uL Hgb 13.2 (12.0-16.0) gm/dL Hct (33.0-51.0) % MCV (80-100) fL MCH (26-34) pg MCHC (32-36) gm/dL RDW Coeff of Debby (11.5-15.5) % Plt Count (140-440) K/uL Neut % (Auto) (42.0-72.0) % Lymph % (Auto) (20-44) % [place] % (Auto) (0.0-11.0) % Eos % (Auto) (0.0-7.0) % Baso % (Auto) (0.0-3.0) % Neut # (Auto) (1.7-7.0) K/uL Lymph # (Auto) (0.90-2.90) K/uL [place] # (Auto) (0.00-0.90) K/UL Eos # (Auto) (0.00-0.50) K/uL Baso # (Auto) (0.00-0.30) K/uL Abs Immat Gran (auto) (0.00-0.30) K/uL Imm/Tot Granulo (auto) % INR (0.91-1.10) APTT (23-33) Seconds D-Dimer Quant (PE/DVT) (0.00-0.50) ug/ml VBG pH (7.32-7.43) VBG pCO2 (40-50) mmHG VBG pO2 (25-47) mmHG VBG HCO3 (21-28) mmol/L Sodium (135-149) mmol/L Potassium (3.6-5.1) mmol/L Chloride (96-114) mmol/L Carbon Dioxide (20-32) mmol/L Anion Gap (7-15) mEq/L BUN (7-30) mg/dL Creatinine (0.5-1.5) mg/dL Estimated Creat Clear Estimated GFR ml/min Glucose (60-115) mg/dL Lactate (0.5-1.9) mmol/L Calcium (8.4-10.6) mg/dL Troponin I (0.01-0.04) ng/mL TSH (0.270-4.200) uIU/mL SARS-CoV-2 (PCR) (Negative) Influenza Type A (PCR) (Negative) Influenza Type B (PCR) (Negative) RSV (PCR) (Negative) 10/26/23 10/26/23 10/26/23 Range/Units 08:18 08:18 08:18 WBC (4.50-11.00) K/uL RBC (4.00-5.20) m/uL Hgb Cancelled (12.0-16.0) gm/dL Hct 41.5 Cancelled (33.0-51.0) % MCV 95 Cancelled (80-100) fL MCH 30 (26-34) pg MCHC (32-36) gm/dL RDW Coeff of Debby (11.5-15.5) % Plt Count (140-440) K/uL Neut % (Auto) (42.0-72.0) % Lymph % (Auto) (20-44) % [place] % (Auto) (0.0-11.0) % Eos % (Auto) (0.0-7.0) % Baso % (Auto) (0.0-3.0) % Neut # (Auto) (1.7-7.0) K/uL Lymph # (Auto) (0.90-2.90) K/uL [place] # (Auto) (0.00-0.90) K/UL Eos # (Auto) (0.00-0.50) K/uL Baso # (Auto) (0.00-0.30) K/uL Abs Immat Gran (auto) (0.00-0.30) K/uL Imm/Tot Granulo (auto) % INR (0.91-1.10) APTT (23-33) Seconds D-Dimer Quant (PE/DVT) (0.00-0.50) ug/ml VBG pH (7.32-7.43) VBG pCO2 (40-50) mmHG VBG pO2 (25-47) mmHG VBG HCO3 (21-28) mmol/L Sodium (135-149) mmol/L Potassium (3.6-5.1) mmol/L Chloride (96-114) mmol/L Carbon Dioxide (20-32) mmol/L Anion Gap (7-15) mEq/L BUN (7-30) mg/dL Creatinine (0.5-1.5) mg/dL Estimated Creat Clear Estimated GFR ml/min Glucose (60-115) mg/dL Lactate (0.5-1.9) mmol/L Calcium (8.4-10.6) mg/dL Troponin I (0.01-0.04) ng/mL TSH (0.270-4.200) uIU/mL SARS-CoV-2 (PCR) (Negative) Influenza Type A (PCR) (Negative) Influenza Type B (PCR) (Negative) RSV (PCR) (Negative) 10/26/23 10/26/23 10/26/23 Range/Units 08:18 08:18 08:18 WBC (4.50-11.00) K/uL RBC (4.00-5.20) m/uL Hgb (12.0-16.0) gm/dL Hct (33.0-51.0) % MCV (80-100) fL MCH Cancelled (26-34) pg MCHC 32 Cancelled (32-36) gm/dL RDW Coeff of Debby 12.8 (11.5-15.5) % Plt Count 316 Cancelled (140-440) K/uL Neut % (Auto) 64.2 (42.0-72.0) % Lymph % (Auto) 24.7 (20-44) % [place] % (Auto) 6.8 (0.0-11.0) % Eos % (Auto) 3.5 (0.0-7.0) % Baso % (Auto) 0.3 (0.0-3.0) % Neut # (Auto) 6.80 (1.7-7.0) K/uL Lymph # (Auto) 2.62 (0.90-2.90) K/uL [place] # (Auto) 0.70 (0.00-0.90) K/UL Eos # (Auto) 0.37 (0.00-0.50) K/uL Baso # (Auto) 0.03 (0.00-0.30) K/uL Abs Immat Gran (auto) 0.05 (0.00-0.30) K/uL Imm/Tot Granulo (auto) 0.5 % INR 0.93 (0.91-1.10) APTT 30 (23-33) Seconds D-Dimer Quant (PE/DVT) 0.33 (0.00-0.50) ug/ml VBG pH 7.357 (7.32-7.43) VBG pCO2 36 L (40-50) mmHG VBG pO2 138.0 H (25-47) mmHG VBG HCO3 20 L (21-28) mmol/L Sodium 136 (135-149) mmol/L Potassium 4.2 (3.6-5.1) mmol/L Chloride 106 (96-114) mmol/L Carbon Dioxide 18 L (20-32) mmol/L Anion Gap 12 (7-15) mEq/L BUN 19 (7-30) mg/dL Creatinine 0.7 (0.5-1.5) mg/dL Estimated Creat Clear 46.13 Estimated GFR 98 ml/min Glucose 243 H (60-115) mg/dL Lactate 2.7 H (0.5-1.9) mmol/L Calcium 9.1 (8.4-10.6) mg/dL Troponin I 0.02 (0.01-0.04) ng/mL TSH 3.310 (0.270-4.200) uIU/mL SARS-CoV-2 (PCR) Negative SARS-CoV-2 (Negative) Influenza Type A (PCR) Negative PCR FLU A (Negative) Influenza Type B (PCR) Negative PCR FLU B (Negative) RSV (PCR) Negative PCR RSV (Negative) 10/26/23 Range/Units 11:27 WBC (4.50-11.00) K/uL RBC (4.00-5.20) m/uL Hgb (12.0-16.0) gm/dL Hct (33.0-51.0) % MCV (80-100) fL MCH (26-34) pg MCHC (32-36) gm/dL RDW Coeff of Debby (11.5-15.5) % Plt Count (140-440) K/uL Neut % (Auto) (42.0-72.0) % Lymph % (Auto) (20-44) % [place] % (Auto) (0.0-11.0) % Eos % (Auto) (0.0-7.0) % Baso % (Auto) (0.0-3.0) % Neut # (Auto) (1.7-7.0) K/uL Lymph # (Auto) (0.90-2.90) K/uL [place] # (Auto) (0.00-0.90) K/UL Eos # (Auto) (0.00-0.50) K/uL Baso # (Auto) (0.00-0.30) K/uL Abs Immat Gran (auto) (0.00-0.30) K/uL Imm/Tot Granulo (auto) % INR (0.91-1.10) APTT (23-33) Seconds D-Dimer Quant (PE/DVT) (0.00-0.50) ug/ml VBG pH (7.32-7.43) VBG pCO2 (40-50) mmHG VBG pO2 (25-47) mmHG VBG HCO3 (21-28) mmol/L Sodium (135-149) mmol/L Potassium (3.6-5.1) mmol/L Chloride (96-114) mmol/L Carbon Dioxide (20-32) mmol/L Anion Gap (7-15) mEq/L BUN (7-30) mg/dL Creatinine (0.5-1.5) mg/dL Estimated Creat Clear Estimated GFR ml/min Glucose (60-115) mg/dL Lactate (0.5-1.9) mmol/L Calcium (8.4-10.6) mg/dL Troponin I 0.24 H* (0.01-0.04) ng/mL TSH (0.270-4.200) uIU/mL SARS-CoV-2 (PCR) (Negative) Influenza Type A (PCR) (Negative) Influenza Type B (PCR) (Negative) RSV (PCR) (Negative) Imaging Data Chest x-ray: Attestation: I have reviewed the pertinent imaging results. My impression: No acute pneumothorax, pleural effusion, CHF, infiltrate. Radiologist's impression: Impression: No acute cardiopulmonary abnormality. ECG Data Attestation: I personally reviewed and interpreted this ECG as follows: Interpretation: EKG 1. 9:06 a.m. Normal sinus rhythm Rate: 89 SC: 148 QRS axis: Low voltage. Rightward axis ST segment/T wave: No ST segment elevation or depression QTc: 445 EKG 2 11:19 a.m. Normal sinus rhythm Rate: 78 SC: 136 QRS axis: Low voltage right axis deviation ST segment/T wave: No ST segment elevation or depression QTc: 450 Critical Care Time Critical Care Time Total Critical Care Time in Minutes: 45 Discharge Plan Discharge Clinical Impression: Bradycardia, COPD exacerbation, Acute non-ST elevation myocardial infarction (NSTEMI) Patient Disposition: [facility] Prescriptions: No Action metformin 500 mg tablet 1,000 mg PO BID atorvastatin 20 mg tablet 20 mg PO DAILY ipratropium-albuterol 0.5 mg-3 mg(2.5 mg base)/3 mL solution for nebulization 3 ml INHALATION Q4H PRN Patient Comments: [NO ORIGINAL SIG] metoprolol succinate 50 mg tablet extended release 24 hr 50 mg PO DAILY valacyclovir 500 mg tablet 500 mg PO Q12H PRN acyclovir 5 % ointment 1 applic topical epinephrine 0.3 mg/0.3 mL auto-injector 0.3 mg IM ONCE PRN albuterol sulfate [Ventolin HFA] 90 mcg/actuation HFA aerosol inhaler 1 puff inhalation Q4H PRN aripiprazole 5 mg tablet 5 mg PO DAILY duloxetine 60 mg capsule,delayed release(DR/EC) 60 mg PO DAILY fenofibrate nanocrystallized 145 mg tablet 145 mg PO DAILY Stiolto Respimat 2.5-2.5 mcg/actuation mist 2 puff inhalation DAILY nystatin 100,000 unit/mL suspension PO budesonide-formoterol [Symbicort] 80-4.5 mcg/actuation HFA aerosol inhaler inhalation Spiriva Respimat 2.5 mcg/actuation mist 2 puff inhalation DAILY Stand Alone Forms: [facility] Info Instructions
--- NOTE | 2023-10-26 08:14 | XR_ITS ---
Patient: WILFRID FARAH Facility:?[facility] Patient ID:?[id number] Site Patient ID:?[id number]. Site :?[id number] Study:?XRay-Chest PORTABLE-10/26/2023 9:01:17 AM Ordering Physician:?DR. PARK Final Report: Indication: Shortness of breath, diminished aeration Comparison: Two-view chest August 16, 2023 Technique: Single AP view chest Findings: There is hyperinflation and chronic interstitial change. There is no focal consolidation, effusion, or pneumothorax. The cardiomediastinal silhouette is within normal limits. The bony thorax is grossly intact. Impression: No acute cardiopulmonary abnormality. Dictated by Zion Kaufman MD @ 10/26/2023 9:10:36 AM Signed by:?Zion Kaufman MD @10/26/2023 9:10:36 AM (Electronic Signature)
[2023-10-26 08:27] LABS: HCO3 VBG 20 mmol/L (21-28); PCO2 VBG 36 mmHG (40-50); pH VBG 7.357 (7.32-7.43)
[2023-10-26 08:29] LABS: Lactate* 2.7 mmol/L (0.5-1.9)
[2023-10-26 08:30] LABS: Basophils Percent Auto 0.3 % (0.0-3.0); Eosinophils Percent Auto 3.5 % (0.0-7.0); Hematocrit 41.5 % (33.0-51.0); Hemoglobin* 13.2 gm/dL (12.0-16.0); Immature Granulocytes Pct Auto 0.5 %; Lymphocytes Percent Auto 24.7 % (20-44); Mean Corpuscular HGB Conc 32 gm/dL (32-36); Mean Corpuscular Hemoglobin 30 pg (26-34); Mean Corpuscular Volume 95 fL (80-100); Monocytes Percent Auto 6.8 % (0.0-11.0); Neutrophils Percent Auto 64.2 % (42.0-72.0); Platelet Count* 316 K/uL (140-440); RDW Coefficient of Variation % 12.8 % (11.5-15.5); Red Blood Count 4.37 m/uL (4.00-5.20); White Blood Count* 10.59 K/uL (4.50-11.00)
[2023-10-26] MEDS: METHYLPREDNISOLONE SOD SUCC 62.5 MG/ML (125) 125 MG IVP (08:30)
[2023-10-26 08:31] LABS: Basophils Absolute Auto 0.03 K/uL (0.00-0.30); Eosinophils Absolute Auto 0.37 K/uL (0.00-0.50); Immature Granulocytes Abs Auto 0.05 K/uL (0.00-0.30); Lymphocytes Absolute Auto 2.62 K/uL (0.90-2.90)
[2023-10-26 08:33] LABS: Slide Review Reflex No
--- OUTSIDE RECORDS SUMMARY | 2023-10-26 08:36 | XMS_ITS | Clinical Summary ---
Author Name Unknown Organization [facility] Address [place], [place] [address] Care Team Providers Care Track Broom Operator Name Role Phone Gypsy Avitia Satinderyvrose LP Unavailable [phone] Charissa Lebron CLEAN ENERGY POLICY ANALYST Unavailable Unavaila Zoey Salinas MD Primary Care Provider [phone] Allergies Active Allergy Reactions Criticality Noted Date Comments Latex Hives 11/23/2011 Welts Venom-Yellow Jacket Other - Describe In Comment Field 04/25/2015 Arm swelling Bupropion Agitation 09/24/2006 Medications Medication Sig Dispensed Refills Start Date End Date Status DOCOSAHEXANOIC ACID/EPA (FISH OIL ORAL) Take 1,000 mg by mouth once daily. Active MULTIVITAMIN ORAL Take 1 Tablet by mouth once daily. Active aspirin (ECOTRIN) 81 mg enteric coated tablet Take 1 tablet by mouth once daily with a meal. 0 5 Active blood-glucose meterIndications:Type 2 diabetes mellitus without complication, without long-term current use of insulin (HC) by Not Applicable route. Dispense meter, test strips, lancets covered by pt ins. E11.9 NIDDM type II - Test 1 time/day 1 Each 2 Active Microlet Lancet 2 Active Contour Next Meter 2 Active BiPapIndications:Comp manasa sleep apnea syndrome,Central [...] if needed for Allergic Reaction. 2 Each 2 Active ARIPiprazole (ABILIFY) 5 mg tabletIndications:Mod [...] 6 hours. 1080 mL 3 3 Active NebulizerIndications: COPD exacerbation (HC) Nebulizer, disposable neb kit x 4, reuseable neb kit x 1, mask x 1, filters x 1. Frequency of use: daily; Medication: duoneb Length of need: 12 months 1 Each 3 Active acyclovir (ZOVIRAX) 5 % ointment Apply topically to affected area(s) 6 times daily for 7 days as needed for HSV outbreak Active albuterol-ipratropium (DUONEB) (2.5-0.5 mg) in 3 mL NEBULIZATION solution Inhale 1 Neb via a nebulizer two times daily. Active valACYclovir (VALTREX) 500 mg tablet Take 1000 mg by mouth twice for 5 days as needed for HSV outbreak Active CRANBERRY ORAL Take 1 Capsule by mouth once daily. Active nitroglycerin (NITROSTAT) 0.4 mg sublingual tabletIndications:NST [place] (non-ST elevated myocardial infarction) (HC) Place 1 Tablet (0.4 mg) under the tongue every 5 minutes if needed for Chest Pain. SIT DOWN prior to taking this medication. 22 Tablet 3 Active atorvastatin (LIPITOR) 80 mg tabletIndications:NST [place] (non-ST elevated myocardial infarction) (HC) Take 1 Tablet (80 mg) by mouth at bedtime. 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 10.2 g 11 3 Active tiotropium bromide (Spiriva Respimat) 2.5 mcg/actuation mist for inhalationIndications :Chronic obstructive pulmonary disease, unspecified COPD type (HC) Inhale 2 Puffs by mouth once daily. 1 Each 11 3 Active predniSONE (DELTASONE) 10 mg tabletIndications:Chr onic obstructive pulmonary disease, unspecified COPD type (HC) Take 40 mg daily for 5 days, then 30 mg daily for 5 days, then 20 mg daily for 5 days, then 10 mg daily for 5 days 50 Tablet 4 Active nystatin (MYCOSTATIN) 100,000 unit/mL suspensionIndications :Thrush Swish and swallow 5 mL (500,000 units) by mouth four times daily. 473 mL 4 Active albuterol HFA (Ventolin HFA) 90 mcg/actuation inhalerIndications:Ch ronic obstructive pulmonary disease, unspecified COPD type (HC) Inhale 1-2 Puffs by mouth every 4 hours if needed for Shortness Of Breath or Wheezing. 18 g 6 4 Active Active Problems Problem Noted Date [...] 09/25/19 07 05/18/2007 Overview: counsels with Gypsy Sadi/ Farzad Conklin Restless legs syndrome (RLS) 09/24/2006 02/25/2021 Depressive disorder, not elsewhere classified 09/25/19 07 08/30/2018 Overview: counsels with Gypsy Sadi/ Farzad Websteren Major depressive disorder, r ecurrent episode, moderate 04/14/2011 Encounters Date Type Department Care Team Description 09/16/2023 4:00 PM SUPERVISOR ABATTOIR Ancillary Procedure [facility] [address] [place] [address] 09/16/2023 Travel 09/10/[address] [address] Zoey Watters MD Prior Authorization (albuterol HFA (Ventolin HFA) 90 mcg/actuation inhaler No PA Required [id number]) 08/30/2023 1:30 PM SUPERVISOR ABATTOIR Office Visit [facility] [address] [place] [address] Zoey Watters MD Hospital F/U (improvement of symptoms) 08/30/[address] [address] Zoey Watters MD Medication Management (nystatin (MYCOSTATIN) 100,000 unit/mL suspension) 08/30/2023 Travel 08/25/2023 Orders Only [facility] Scanner 1 scan: (1-Ord) INCOMING RECORDS-EKG, [facility], 08/25/2023 08/25/2023 Orders Only [facility] Scanner 1 scan: (1-Ord) INCOMING RECORDS-LABS, [facility], 08/25/2023 08/16/2023 Orders Only [facility] Scanner 1 scan: (1-Ord) [place], XR CHEST 2V, 08/16/2023 08/16/2023 Nurse Triage [facility] [address] [place] [address] Zoey Watters MD Cough 08/13/2023 Refill [facility] [address] [place] [address] Zoey Watters MD Refill Request (Ventolin Hfa) 08/12/2023 3:00 PM SUPERVISOR ABATTOIR Office Visit [facility] [address] [place], [place] [id number] Wilfred Horton MD Follow Up (COPD) 08/12/2023 Travel from Last 3 Months Immunizations Name Administration Dates Next Due AMB Influenza, IIV4 PF (=>6 mos Flulaval,Fluzone Fluarix)(Flu Clinic Only) 05/20/2017 COVID-19 Vaccine Spikevax (M oderna 50mcg/0.5mL) 12YO+ [id number] Formula PF 05/18/2023 COVID-19 vaccine (Pfizer-Bio NTech 30mcg/0.3mL) 12YO+ BIVALENT PF, MDV 05/22/2022 COVID-19 vaccine (Pfizer-Bio NTech 30mcg/0.3mL) 12YO+ MIGEL-SUCROSE PF, MDV 12/08/2021 COVID-19 vaccine (Pfizer-Bio NTech 30mcg/0.3mL) PF, MDV 10/22/2020,10/01/2020 Influenza, IIV3 (Age >=3 years) 04/04/20 13,03/18/2012,07/02/2008,06/20 Influenza, IIV4 05/18/2023,,10/02/2021,04/30,06/01/2019,06/22/2018,06/02/2016 ,04/25/2015,04/10/2014 Pneumococcal Conj 20-valent (Prevnar 20) 02/05/2023 [...] Sign Reading Time Taken Comments Blood Pressure 127/82 08/30/2023 1:30 PM SUPERVISOR ABATTOIR Pulse 78 08/30/2023 1:30 PM SUPERVISOR ABATTOIR Temperature 36.5 ??C (97.7 ??F) 03/03/2023 7:47 AM CD T Respiratory Rate 16 08/12/2023 2:53 PM SUPERVISOR ABATTOIR Oxygen Saturation 95% 08/30/2023 1:30 PM SUPERVISOR ABATTOIR Inhaled Oxygen Concentration - - Weight 63.8 kg (140 lb 9.6 oz) 08/30/2023 1:30 P M SUPERVISOR ABATTOIR Height 158 cm (5' 2.2) 08/12/2023 2:53 PM SUPERVISOR ABATTOIR Body Mass Index 25.55 08/12/2023 2:53 PM SUPERVISOR ABATTOIR Plan of Treatment Upcoming Encounters Date Type Department Care Team (Late st Contact Info) Description 11/11/2023 2:00 PM CDT Office Visit [facility] [address] [place] [address] Wilfred Horton MD [address] [address] 11/17/2023 2:15 PM CDT Appointment [facility] [address] [facility] [place] [address] Health Maintenance Due Date Last Done Comments Depression screening for age 12+ 03/18/2024 03/18/2023, 09/20/2022, 09/18/2022, Additional history exists Influenza for age 50-64 03/19/2024 05/18/20 23, 07/30/2022, 10/02/2021, Additional history exists BMI (ht and wt on same day) for age 18+ 08/12/2024 08/12/2023, 05/13/2023, 04/29/2023, Additional history exists Mammogram for age 45-75 09/15/2024 09/16/19 24, 06/14/2018, 05/27/2016, Additional history exists Pap test for age [...] 10/02/2021 Pneumococcal series for age 6-64 Completed 02/06/20 23, 10/02/2021 COVID-19 vaccine series Completed 05/18/20, 05/22/2022, 12/08/2021, Additional history exists Procedures Procedure Name Priority Date/Time Associated Diagnosis Comments XR MAMMO MARIO BILAT SCREEN Routine 09/16/2023 3:48 PM SUPERVISOR ABATTOIR Visit for screening mammogram HEMOGLOBIN A1C Routine 08/30/2023 2:34 PM SUPERVISOR ABATTOIR Type 2 diabetes mellitus without complication, without long-term current use of insulin (HC) ALT (SGPT) Routine 08/30/2023 2:34 PM SUPERVISOR ABATTOIR Transaminitis AST (SGOT) Routine 08/30/2023 2:34 PM SUPERVISOR ABATTOIR Transaminitis SCAN CORRESP-EKG RESULTS 08/25/2023 12:00 AM SUPERVISOR ABATTOIR SCAN CORRESP-LABORATORY RESULTS 08/25/2023 12:00 AM SUPERVISOR ABATTOIR SCAN-RADIOLOGY REPORT 08/16/2023 12:00 AM SUPERVISOR ABATTOIR LIPID PANEL Early AM 03/01/2023 3:10 AM CDT COLONOSCOPY SCREENING Routine 11/04/2021 1:22 PM CDT Screening for colon cancer HPV THIN PREP Routine 10/02/2021 4:27 PM CDT Encounter for gynecological examination without abnormal finding OCCULT BLOOD IFOBT STOOL Routine 04/25/2019 2:00 PM CDT Black tarry stools ANTI HIV 1/2 Routine 04/04/2013 12:19 PM CDT Routine screening for STI (sexually transmitted infection) ANTI HCV Routine 11/24/2007 1:30 PM CDT Laceration Of Finger from Last 3 Months or Most Recently Relevant to Health Maintenance Results * XR MAMMO MARIO BILAT SCREEN (09/16/2023 3:48 PM SUPERVISOR ABATTOIR) Anatomical Region Laterality Modality BREASTS, Breast Left, Breast Right Bilateral Mammography Impressions 09/20/2023 1:44 PM SUPERVISOR ABATTOIR ??There is no radiographic evidence for malignancy. ??Recommend annual mammograms. MAMMOGRAM ASSESSMENT: ??ACR 1 Negative PATIENTS: You will also receive a letter with your examination results in an easy to read format. ??If you have questions about your results, please contact your referring provider. Narrative 09/20/2023 1:44 PM SUPERVISOR ABATTOIR For Patients: As a result of the Century Cures Act, medical imaging exams and procedure reports are released immediately into your electronic medical record. You may view this report before your referring provider. If you have questions, please contact your health care provider. XR MAMMO MARIO BILAT SCREEN [[id number]] CLINICAL HISTORY: ??This is an asymptomatic 63 y.o. patient. INDICATION FOR EXAM: Mammogram Screening. TECHNIQUE: CC & MLO views were obtained. ??This study was evaluated with the assistance of Computer-Aided Detection. Breast Tomosynthesis was used in interpretation. COMPARISON FILM: Yes 06/14/18 [facility] [employer] FINDINGS: ??The breasts have scattered areas of fibroglandular density. There are no dominant masses, suspicious micro calcifications or areas of architectural distortion. Zoey Watters MD MAMMO * (ABNORMAL) ALT (SGPT) (08/30/2023 2:34 PM SUPERVISOR ABATTOIR) ALT (SGPT) 123(H) 10 - 35 IU/L 08/30/2023 9:48 PM SUPERVISOR ABATTOIR [facility] Blood BLOOD SPECIMEN / Unknown Venipuncture / Unknown 08/30/2023 2:34 PM SUPERVISOR ABATTOIR 08/30/2023 2:35 PM SUPERVISOR ABATTOIR Zoey Watters MD CHEMISTRY [facility] [address] [place] [address], * (ABNORMAL) AST (SGOT) (08/30/2023 2:34 PM SUPERVISOR ABATTOIR) AST (SGOT) 41(H) 10 - 35 IU/L 08/30/2023 9:48 PM SUPERVISOR ABATTOIR [facility] [employer] [facility] Blood BLOOD SPECIMEN / Unknown Venipuncture / Unknown 08/30/2023 2:34 PM SUPERVISOR ABATTOIR 08/30/2023 2:35 PM SUPERVISOR ABATTOIR Zoey Watters MD CHEMISTRY Performing Organization Address [facility] de Phone Number [facility] [address] [place] [address], [place] * HEMOGLOBIN A1C MONITORING (POCT) (08/30/2023 2:34 PM SUPERVISOR ABATTOIR) HEMOGLOBIN A1C MONITORING (POCT) 6.3 <=6.4 % 08/30/2023 2:44 PM SUPERVISOR ABATTOIR [facility] Blood BLOOD SPECIMEN / Unknown Venipuncture / Unknown 08/30/2023 2:34 PM SUPERVISOR ABATTOIR 08/30/2023 2:35 PM SUPERVISOR ABATTOIR Narrative [facility] - 08/30/2023 2:44 PM SUPERVISOR ABATTOIR ? (<=6.9%) ? Indicates good control ? (7.0% to 7.9%) ? Indicates fair control ? (>=8.0%) ? Indicates poor control ?? NOTE: ??These thresholds are guidelines and ?individual targets may vary. Falsely low levels may be seen with: Recent Transfusion, Recent Significant Blood Loss, Hemolytic Diseases, or Falsely elevated levels may be seen with: Untreated Anemias, Splenectomy ? Zoey Watters MD CHEMISTRY Performing Organization Address [facility] de Phone Number [facility] [address] [place] [address], [place] [phone] * SCAN CORRESP-LABORATORY RESULTS (08/25/2023 12:00 AM SUPERVISOR ABATTOIR) Scanner OTHER * SCAN CORRESP-EKG RESULTS (08/25/2023 12:00 AM SUPERVISOR ABATTOIR) Scanner OTHER * SCAN-RADIOLOGY REPORT (08/16/2023 12:00 AM SUPERVISOR ABATTOIR) Anatomical Region Laterality Modality Other Scanner OTHER * (ABNORMAL) Lipid Panel AM (03/01/2023 3:10 AM CDT) CHOLESTEROL,TOTAL 136 100 - 199 mg/dL 03/01/2023 4:07 AM CDT [facility] Comment: Cholesterol, Total Reference Ranges Desirable <200 mg/dL Borderline 200-239 mg/dL High >=240 mg/dL TRIGLYCERIDES 169(H) <150 mg/dL 03/01/2023 4:07 AM CDT [facility] HDL CHOLESTEROL 33(L) >40 mg/dL 4:07 AM CDT [facility] NON-HDL CHOLESTEROL 103 <145 mg/dl 03/01/2023 4:07 AM CDT [facility] CHOL/HDL RATIO 4.12 <4.50 03/01/2023 4:07 AM CDT [facility] LDL CHOLESTEROL 69 <=130 mg/dL 03/01/2023 4:07 AM CDT [facility] VLDL CHOLESTEROL 34(H) <=30 mg/dL 03/01/2023 4:07 AM CDT [facility] PROVIDER ORDERED STATUS RANDOM 03/01/2023 4:07 AM CDT [facility] Blood BLOOD SPECIMEN / Unknown Venipuncture / Unknown 03/01/2023 3:10 AM CDT 03/01/2023 3:22 AM CDT Sherif Roberts MD CHEMISTRY [facility] [address] [place] [address], * COLONOSCOPY (11/04/2021 1:42 PM CDT) 11/04/2021 1:42 PM CDT Narrative Transcriptions Mg Martins MD - 11/04/2021 2:25 PM CDT Patient Name: Antonieta Alejandre Procedure Date: 11/04/2021 Gender: Female Date of : 1960 Admit Type: Outpatient Procedure: Colonoscopy Proceduralist: Mg Martins MD , Lucina Deal RN(Nurse) Referring MD: Zoey Watters Indications/Pre-Op Diagnosis: Screening for colorectal malignant neoplasm, Last colonoscopy: September 2011 Medications: Fentanyl 200 micrograms IV, Midazolam 2 mgIV, The level of sedation administered wasmoderate Procedure Description: The patient had risks, benefits and alternatives explained to andgave informed consent. The patient had a stable cardiopulmonary status and judged an adequate candidate for conscious sedation. The [id number] was passed through the anus and advanced tothe cecum, identified by appendiceal orifice and ileocecal valve. The colonoscopy was performed without difficulty. The patient toleratedthe procedure well. The quality of the bowel preparation was good. The ileocecal valve, appendiceal orifice, and rectum were photographed. Complications: No immediate complications. Estimated Blood Loss & Specimen: Estimated blood loss: none. Specimen collected - Yes and sent to Laboratory Findings: The perianal and digital rectal examinations were normal. A 3 mm polyp was found in the rectum. The polyp was sessile. Thepolyp was removed with a cold snare. Resection and retrieval werecomplete. The exam was otherwise without abnormality. Impressions/Post-Op Diagnosis: - One 3 mm polyp in the rectum, removed with a cold snare. Resectedand retrieved. - The examination was otherwise normal. Recommendation: - Patient has a contact number available for emergencies. The signsand symptoms of potential delayed complications were discussed with the patient. Return to normal activities tomorrow. Written discharge instructions were provided to the patient. - Resume previous diet. - Continue present medications. - Await pathology results. - Repeat colonoscopy is recommended. The colonoscopy date will be determined after pathology results from today's exam become available for review. - Patient's sedation for a repeat study will require Anesthesia staff assistance. Moderate Sedation: Moderate (conscious) sedation was administered by the endoscopy nurse and supervised by the endoscopist. The following parameters were monitored: oxygen saturation, heart rate, respiratory rate, blood pressure, adequacy of pulmonary ventilation and reponse to care. Please refer to the patient's medical record flowsheets and nursing notes for moderate sedation details. Total physician intraservice time was 19 minutes. Mg Martins MD 11/04/2021 2:24:56 PM This report has been signed electronically. Note Initiated On: 11/04/2021 1:42 PM Procedure Code(s): --- Professional --- 10459, Colonoscopy, flexible; with removalof tumor(s), polyp(s), or other lesion(s) bysnare technique Diagnosis Code(s): --- Professional --- Z12.11, Encounter for screening formalignant neoplasm of colon K62.1, Rectal polyp CPT copyright 2020 [employer]. All rights reserved. The codes documented in this report are preliminary and upon bender machine reviewmay be revised to meet current compliance requirements. Scope In: 1:58:22 PM Scope Withdrawal Time 0 hours 8 minutes 16 seconds Scope Out: 2:16:54 PM Mg Martins MD PROCEDURE ORD * HPV HIGH RISK (10/02/2021 4:27 PM CDT) TYPE 16 Negative Negative 10/08/2021 11:18 AM CDT [facility] [employer] TRAL LABORATORY TYPE 18 Negative Negative 10/08/2021 11:18 AM CDT [facility] [employer] OTHER HIGH RISK TYPES Negative Negative 10/08/2021 11:18 AM CDT [facility] [employer] Other (Cervical) Non-Blood / Unknown 10/02/2021 4:27 PM CDT 10/06/2021 8:55 AM CDT Narrative [facility] - 10/08/2021 11:18 AM CDT HPV types 16, 18, 31, 33, 35, 39, 45, 51, 52, 56, 58, 59, 66 and 68 DNA were undetectable or below the pre-set threshold. Methodology: Lizbet Rubi 4800 HPV Test Zoey Watters MD MICROBIOLOGY [facility] [address] [place] [address], * OCCULT BLOOD IFOBT STOOL (04/25/2019 2:00 PM CDT) STOOL BLOOD ,IFOBT Negative Negative 04/25/2019 3:17 PM CDT [facility] Stool STOOL SPECIMEN / Unknown Non-Blood / Unknown 04/25/2019 2:00 PM CDT 04/25/2019 3:04 PM CDT [facility] [address] [place] [address], * ANTI HIV 1/2 (04/04/2013 12:19 PM CDT) ANTI HIV 1/2 Non-reacti ve [facility] Blood specimen (specimen) BLOOD SPECIMEN / Unknown 04/04/2013 12:19 PM CDT 04/04/2013 12:14 PM CDT Evangelina Gil HIGH SCHOOL ASSISTANT PRINCIPAL SEND OUT[employer] [facility] INTERNAL ZIP [address] [place] [address] * ANTI HCV (11/24/2007 1:30 PM CDT) ANTI HCV Non-reacti ve [facility] Blood specimen (specimen) BLOOD SPECIMEN / Unknown 11/24/2007 1:30 PM CDT 11/24/2007 1:24 PM CDT Giovanni Blakely MD [employer]END OUTS [facility] INTERNAL ZIP [address] [place] [id number] from Last 3 Months or Most Recently Relevant to Health Maintenance Advance Directives * Full Code (Latest Code Status on File) Date Activated Date Inactivated Comments 02/28/2023 12:42 PM 03/03/2023 12:55 PM Question Answer Comments Code Status Discussion: Reviewed Preferences * Full Code Date Activated Date Inactivated Comments 02/28/2023 7:49 AM 02/28/2023 12:41 PM Question Answer Comments Code Status Discussion: Unable to Assess Preferences, Provider to review later * Full Code Date Activated Date Inactivated Comments 04/17/2019 4:32 PM 04/20/2019 4:03 PM Question Answer Comments Code Status Discussion: Not Discussed * Full Code Date Activated Date Inactivated Comments 11/23/2011 10:05 AM 11/23/2011 5:38 PM Care Teams Track Broom Operator Relationship Specialty Start Date End Date Hegland, Zoey Lakisha, MD [address] [place] [address] PCP - General Family Practice 02/06/21 Gypsy Avitia LP Psychology 06/02/16 Charissa Lebron CNS Clinical Nurse Specialist 06/02/16
[2023-10-26 08:44] LABS: Potassium* 4.2 mmol/L (3.6-5.1); Sodium* 136 mmol/L (135-149)
[2023-10-26 08:46] LABS: Chloride* 106 mmol/L (96-114); Creatinine* 0.7 mg/dL (0.5-1.5); Est. Creatinine Clearance* 46.13; Estimated Glomerular Filt Rate 98 ml/min
[2023-10-26 08:47] LABS: Anion Gap 12 mEq/L (7-15); Blood Urea Nitrogen* 19 mg/dL (7-30); Calcium* 9.1 mg/dL (8.4-10.6); Carbon Dioxide* 18 mmol/L (20-32); D Dimer Quantitative* 0.33 ug/ml (0.00-0.50); Glucose* 243 mg/dL (60-115)
[2023-10-26] MEDS: LORazepam 2 MG/ML inj 0.5 MG IVP (08:48)
[2023-10-26] MEDS: IPRAT-ALBUT 0.5-2.5 MG/3 ML NEB 1 NEB IH (09:02)
[2023-10-26 09:04] LABS: Troponin I* 0.02 ng/mL (0.01-0.04)
[2023-10-26 09:09] LABS: PCR FLU A Negative PCR FLU A (Negative); PCR FLU B Negative PCR FLU B (Negative); PCR RSV Negative PCR RSV (Negative); SARS PCR* Negative SARS-CoV-2 (Negative)
--- NOTE | 2023-10-26 09:33 | RESP.RT ---
Pt seen on [place] Ventilator as set up by market basket maker. Did not assess overall setting. Pt apeared to be air trapping on it. Removed pt from Unit. Started neb for Pt. linda. Pt with fairly good aeration in upper lobes, howver not in lower lobes. Gave pt another duoneb. BBS much improved, lower lobes with improved aeration and expiratory wheezing. RR 16. On 1L SPO2 94% PT sleeping soundly and snoring, thus end tidal is not working well. She does use CPAP at night at home. Plan is to give another albuterol neb in approx 1/2 hour.
[2023-10-26] MEDS: ALBUTEROL SULFATE 2.5 MG/3 ML VIAL.NEB NEB (11:20)
[2023-10-26 12:06] LABS: Troponin I* 0.24 ng/mL (0.01-0.04)
[2023-10-26] MEDS: ATROPINE 1 MG/10 ML SYRINGE 0.5 MG IVP (12:14)
[2023-10-26] MEDS: ASPIRIN 81 MG TAB.CHEW 324 MG PO (12:34)
[2023-10-26 12:43] LABS: INR 0.93 (0.91-1.10); Prothrombin Time 13.1 Seconds
[2023-10-26] MEDS: HEPARIN 5,000 UNIT/0.5 ML INJ 3800 UNIT IVP (12:43)
[2023-10-26] MEDS: HEPARIN 25,000 UNIT/500 ML BAG 15 UNIT IV (12:43)
[2023-10-26 12:44] LABS: Partial Thromboplastin Time* 30 Seconds (23-33)
== END 2023-10-26 13:05 | disposition short-term general hospital (02) ==
PROVIDERS: Emergency Provider Emergency Medicine; PCP Family Medicine
DX: J44.1 Chronic obstructive pulmonary disease with (acute) exacerbation (principal); I21.4 Non-ST elevation (NSTEMI) myocardial infarction
CPT/HCPCS: 36415; 71045; 80048; 82803; 83605; 84443; 84484; 85025; 85027; 85379; 85610; 85730; 87631; 93005; 94640; 96374; 96375; 99285; 99291; A9270; J0461; J1644; J2060; J2919

== ENCOUNTER 2023-10-26 12:48 | Outpatient (CLI) | payer BC, SELFPAY ==
--- OUTSIDE RECORDS SUMMARY | 2023-10-28 15:44 | XMS_ITS | Clinical Summary ---
Author Name Unknown Organization [employer] Address [place], [place] [address] Care Team Providers Care Home Designer Name Role Phone Gypsy Avitia Miguel LP Unavailable [phone] Charissa Lebron TRUCK MECHANIC Unavailable Unavaila Zoey Salinas MD Primary Care [...] Encounters Date Type Department Care Team Description 10/28/2023 12:20 PM CDT Anesthesia Event [facility] [address] [place] [address] Melissa Patricia MD Waldon, Robert S, CRNA 10/26/2023 1:51 PM CDT - Present Hospital Encounter [facility] [address] [place] [address] [facility] [place] Hospitalists Of [facility]ph Eugene MD Schmidt, Chas Keenan MD Cardiovascular symptoms 10/26/2023 Telephone [facility] [address] [place] [address] Shlomo Kovacs MD troponin positive 10/26/2023 Telephone [facility] [address] [place] [address] Shlomo Kovacs MD symptomatic bradycardia 09/16/2023 4:00 PM ORDER MAKE UP CLERK Ancillary Procedure [facility] [address] [place] [address] 09/16/2023 Travel 09/10/2023 Telephone [facility] [address] [place] [address] Zoey Watters MD Prior Authorization (albuterol HFA (Ventolin HFA) 90 mcg/actuation inhaler No PA Required [id number]) 08/30/2023 1:30 PM ORDER MAKE UP CLERK Office Visit [facility] [address] [place] [address] Zoey Watters MD [facility] F/U (improvement of symptoms) 08/30/2023 Telephone [facility] [address] [place] [address] Zoey Watters MD Medication Management (nystatin (MYCOSTATIN) 100,000 unit/mL suspension) 08/30/2023 Travel 08/25/2023 Orders Only [facility] Scanner 1 scan: (1-Ord) INCOMING RECORDS-EKG, [facility], 08/25/2023 08/25/2023 Orders Only [facility] Scanner 1 scan: (1-Ord) INCOMING RECORDS-LABS, [facility], 08/25/2023 08/16/2023 Orders Only [facility] Scanner 1 scan: (1-Ord) HIBERNIA, XR CHEST 2V, 08/16/2023 08/16/2023 Nurse Triage [facility] [address] [place] [address] Zoey Watters MD Cough 08/13/2023 Refill [facility] [address] [place] [address] Zoey Watters MD Refill Request (Ventolin Hfa) 08/12/2023 3:00 PM ORDER MAKE UP CLERK Office Visit [facility] [address] [place] [address] Wilfred Horton MD Follow Up (COPD) 08/12/2023 Travel from Last 3 Months Immunizations Name Administration Dates Next Due AMB Influenza, IIV4 PF (=>6 mos Flulaval,Fluzone Fluarix)(Flu Clinic Only) 05/20/2017 COVID-19 Vaccine Spikevax (M oderna 50mcg/0.5mL) 12YO+ [id number] Formula PF 05/18/2023 COVID-19 vaccine (Pfizer-Bio NTech [...] Sign Reading Time Taken Comments Blood Pressure 98/63 10/28/2023 1:45 PM CDT Pulse 102 10/28/2023 1:45 PM CDT Temperature 36.6 ??C (97.9 ??F) 10/28/2023 9:31 AM CD T Respiratory Rate 18 10/28/2023 1:45 PM CDT Oxygen Saturation 92% 10/28/2023 1:49 PM CDT Inhaled Oxygen Concentration - - Weight 61.1 kg (134 lb 9.6 oz) 10/27/2023 6:00 A M CDT Height 158 cm (5' 2.2) 08/12/2023 2:53 PM ORDER MAKE UP CLERK Body Mass Index 24.46 08/12/2023 2:53 PM ORDER MAKE UP CLERK Plan of Treatment Upcoming Encounters Date Type Department Care Team (Late st Contact Info) Description 11/11/2023 2:00 PM CDT Office Visit [facility] [address] [place] [address] Wilfred Horton MD [address] [address] 11/17/2023 2:15 PM CDT Appointment [facility] [address] [place] [address] Health Maintenance Due Date Last Done Comments Depression screening for age 12+ 03/18/2024 03/18/2023, 09/20/2022, 09/18/2022, Additional history exists Influenza for age 50-64 03/19/2024 05/18/20, 07/30/2022, 10/02/2021, Additional history exists BMI (ht [...] 05/18/20 23, 05/22/2022, 12/08/2021, Additional history exists Procedures The patient is currently admitted. The information in this section might not be complete until the patient is discharged. Procedure Name Priority Date/Time Associated Diagnosis Comments EP PPM Routine 10/28/2023 12:46 PM CDT GLUCOSE METER Timed 10/28/2023 7:41 AM CDT SCAN-CARDIAC STRIP 10/28/2023 6: 56 AM CDT SCAN-CARDIAC STRIP 10/28/2023 6: 21 [...] MARIO BILAT SCREEN Routine 09/16/2023 3:48 PM ORDER MAKE UP CLERK Visit for screening mammogram HEMOGLOBIN A1C Routine 08/30/2023 2:34 PM ORDER MAKE UP CLERK Type 2 diabetes mellitus without complication, without long-term current use of insulin (HC) ALT (SGPT) Routine 08/30/2023 2:34 PM ORDER MAKE UP CLERK Transaminitis AST (SGOT) Routine 08/30/2023 2:34 PM ORDER MAKE UP CLERK Transaminitis SCAN CORRESP-EKG RESULTS 08/25/2023 12:00 AM ORDER MAKE UP CLERK SCAN CORRESP-LABORATORY RESULTS 08/25/2023 12:00 AM ORDER MAKE UP CLERK SCAN-RADIOLOGY REPORT 08/16/2023 12:00 AM ORDER MAKE UP CLERK COLONOSCOPY SCREENING Routine 11/04/2021 1:22 PM CDT [...] Recently Relevant to Health Maintenance Results * EP PPM (10/28/2023 12:46 PM CDT) Anatomical Region Laterality Modality Other 10/28/2023 12:4 6 PM CDT Narrative Transcriptions Renuka Pelaez MD - 10/28/2023 1:19 PM CDT [facility] Electrophysiology Implant Report Name: ANTONIETA FARAH Event Date: 10/28/2023 [employer] ID #: [id number] Date: 1960 Gender: Female Age: 63 SARAH #: [id number] Procedure Performed By: RENUKA PELAEZ [facility] Referring Physician: Implant Procedure Type Dual Chamber Permanent Pacemaker Implant Summary / Conclusions D-PPM implantation Recommendations / Plan 1- CXR and device check in am 2- Follow up with PMD and device clinic 3- Restart Toprol XL 50 po daily 4- Follow up with cardiology 5- Further plan of care and follow up per primary team and consultants Pre-Operative Diagnosis ? Sinus node dysfunction Post-Operative Diagnosis ? Same as Pre-operative diagnosis Indications ? Same as Pre-operative diagnosis Brief Patient History Ms. Farah is a very pleasant 63-year-old lady with history ofcoronary artery disease and known RAILROAD DISPATCHER of the RCA, hypertension, diabetes,and COPD. Her echocardiogram showed preserved LV function. Medical therapyhas been pursued for her coronary artery disease. She is now admitted withsymptomatic bradycardia episodes. Coronary angiogram was unchanged withknown RAILROAD DISPATCHER of the mid RCA. Ms. Farah was seen and evaluated by mypartner Dr. Berkowitz who recommended proceeding with dual-chamber permanentpacemaker implantation with plan to resume beta-teresa after that. I,myself, had a nice discussion with Ms. Farah today and she reiteratedher wishes to proceed with procedure and expressed understanding to therationale, pros, cons, limitations and potential complications. Consent & Hickory Protocol Hickory protocol was followed. TIME OUT conducted just prior tostarting procedure confirmed patient identity, site/side, procedure,patient position, and availability of correct equipment and implants (ifapplicable). The risks, benefits, and alternatives of the procedure were discussed withthe patient and written informed consent was obtained. Procedure Description The patient arrived at the Cardiac Electrophysiology Laboratory in thefasting, non-sedated state. Informed consent was previously obtained frompatient, who understood indications, risks, and benefits of the procedure.The patient was prepped and draped in a sterile fashion. Moderatesedation was administered by the anesthesia service. The Left Pectoralregion was anesthetized. A peripheral venogram was performed to opacifyand rule out stenosis in the subclavian and axillary veins. The venogramrevealed a widely patent subclavian/axillary vein. An incision was madein the anesthetized region, and using a combination of blunt andelectrocautery dissection, the pocket for the generator was created.Under direct fluoroscopy, the Axillary Vein was punctured and wires wereinserted. Ventricular and atrial leads were implanted using fluoroscopicguidance. A 3830 RV pacing lead was implanted in a deep septal location.After satisfactory sensing and pacing thresholds were confirmed, the leadswere secured in the pocket using silk sutures. The pocket was rinsed withantibiotic solution and the generator was introduced into the field. Theleads were connected to the pacemaker generator. The generator wasinserted into the pocket. The incision was closed in 3 layers usingVicryl sutures. Skin closure was reinforced with Steristrips. Thepatient tolerated the procedure well without complications and left theelectrophysiology laboratory in stable condition. Implantable Device Specifications Pulse Generator Detail Implanted Status Pocket Location Workers Compensation Attorney Model Serial Number 10/28/2023 Implanted Left Pectoral [employer] Erin XT DR MRI [id number] Lead Detail Implanted Status Chamber Location Workers Compensation Attorney Model Serial Number 10/28/2023 Implanted Right Ventricle Septum [employer] Secure [id number] 10/28/2023 Implanted Right Atrium Right Appendage [employer]Cap[employer]Fix Novus [id number] Measurement Or Director P/R Wave (mV) Threshold (V) Pulse Width (msec) Resistance (ohms) High Output Stim Result RA 2.9 0.5 0.4 663 No Stimulation @ 10 V RV 10.6 1 0.4 909 No Stimulation @ 10 V Device Settings Mode Lower Rate (bpm) Upper Rate (bpm) AAIR-DDDR 70 130 LYUDMILA Delay: 150 msec PAV Delay: 180 msec Lead Amplitude (V) Pulse Width (msec) Sensitivity (mV) Configuration Atrial 3.5 0.4 0.3 Bipolar RV 3.5 0.4 0.9 Bipolar Features Magnet Use: Enabled Wireless Telemetry: Active Feature Status Detail Mode Switch On 150 Procedure(s) Performed ? Insertion of new or replacement PPM with transvenous electrode (s);Atrial and Ventricular Procedure Detail Estimated Blood Loss: < 50 ml Specimen Collected: None Level of Sedation Achieved: See Anesthesia Note Staff Name Role Renuka Pelaez Implanting Latasha Billingsley RN Nurse Shirlene Will Chris EPT Woodworking Belt Sander Jensen Ang Woodworking Belt Sander Medications Ordered and Administered Start Time Stop Time Medication Dose Units Route Ordered By Given By 12:48 0.25% Bupivicaine 15 mL Subcut MD Latasha Alves RN 12:48 1% Lidocaine Hydrochloride 15 mL Subcut MD Urvashi Alves RN The anesthesia service monitored the patient?s conscious sedation duringthe procedure. The medications listed above were verbally ordered by me and read back tome as documented above. Refer to the hemodynamic procedure log report for additional casedetails. electronically signed on 10/28/2023 1:19:40 PM with status of Final Renuka Pelaez MD Implanting Radiotelephone Technical Operator [facility] [address] [place] [address] (p) [phone](f) Yoan Munguia MD CV IMAGING * (ABNORMAL) GLUCOSE METER (10/28/2023 7:41 AM CDT) Only the most recent of8 resultswithin the time period is included. GLUCOSE METER 145(H) 65 - 100 mg/dL 10/28/2023 7:41 AM CDT [facility] Blood BLOOD SPECIMEN / Unknown 10/28/2023 7:41 AM CDT 10/28/2023 7:41 AM CDT Chas Soler MD CHEMISTRY [facility] [address] [place] [address], * SCAN-CARDIAC STRIP (10/28/2023 6:56 AM CDT) Scanner OTHER * SCAN-CARDIAC STRIP (10/28/2023 6:21 AM CDT) Scanner OTHER * SCAN-CARDIAC STRIP (10/28/2023 2:13 AM CDT) Scanner OTHER * (ABNORMAL) ACTIVATED CLOTTING TIME PLH469 ACT (10/27/2023 10:46 AM CDT) ACTIVATED CLOTTING TIME, POCT 139(H) 74 - 125 sec 10/27/2023 4:32 PM CDT [facility] Blood BLOOD SPECIMEN / Unknown 10/27/2023 10:46 AM CDT 10/27/2023 4:32 PM CDT Chas Soler MD HEMATOLOGY [facility] [address] [place] [address], * CVL CORONARY ANGIOGRAM POSS PCI (10/27/2023 10:41 AM CDT) Anatomical Region Laterality Modality Other 10/27/2023 10:4 1 AM CDT Narrative Transcriptions Mg Valiente MD - 10/27/2023 11:08 AM CDT [facility] Cardiac Catheterization Report Name: ANTONIETA FARAH Event Date: 10/27/2023 10:41 [employer] ID #: [id number] SARAH #: [id number] Diagnostic Physician: Tarun VALIENTE [facility] Referring Physician: Zoey Watters Date: 1960 Gender: [...] & PLAN * Medical Rx Consent & Hickory Protocol The risks, benefits, and alternatives of the procedure were discussed withthe patient and written informed consent was obtained. Hickory protocol was followed. TIME OUT conducted just prior tostarting procedure confirmed patient identity, site/side, procedure,patient position, and availability of correct equipment and implants (ifapplicable). Staff Name Title Tarun VALIENTE Diagnostic Radiotelephone Technical Operator Kobe Gonzales Fellow Terri Nuñez RN Nurse Perry Carrington CVT Scrub Kelsy rKuger CVT Monitor Procedures ? Ultrasound Guided Vascular [...] healthcare professional providing the sedation ends personal utvhmqqvzfjrqw-[id number] time with the patient. The medications listed above were verbally ordered by me and read back tome as documented above. Refer to the procedure log report for additional case details. electronically signed on 10/27/2023 11:08:04 AM with status of Final Connor Valiente MD [facility] [address] [facility] [address] [place] [address] (p) [phone](f) Provider Referring CV IMAGING * SCAN CORRESP-EKG RESULTS (10/27/2023 10:13 AM CDT) Only the most recent of2 resultswithin the time period is included. Narrative 10/27/2023 10:13 AM CDT Ordered by an unspecified provider. Other Clinical Staff OTHER * SCAN-CARDIAC STRIP (10/27/2023 9:04 AM CDT) Scanner OTHER * PLATELET COUNT (10/27/2023 7:33 AM CDT) PLATELET COUNT 248 140 - 440 thou/cu mm 10/27/2023 8:05 AM CDT [facility] MPV 8.8 6.5 - 11.0 fL 10/27/2023 8:05 AM CDT [facility] Blood BLOOD SPECIMEN / Unknown Venipuncture / Unknown 10/27/2023 7:33 AM CDT 10/27/2023 7:42 AM CDT Narrative [facility] - 10/27/2023 8:05 AM CDT Every morning while on IV heparin. Every morning while on IV heparin. Necessary every morning while on IV heparin. Chas Soler MD HEMATOLOGY [facility] [address] [place] [address], * (ABNORMAL) HEMOGLOBIN (10/27/2023 7:33 AM CDT) HEMOGLOBIN 11.6(L) 12.0 - 16.0 g/dL 10/27/2023 8:05 AM CDT [facility] MCV 94 80 - 100 fL 10/27/2023 8:05 AM CDT [facility] Blood BLOOD SPECIMEN / Unknown Venipuncture / Unknown 10/27/2023 7:33 AM CDT 10/27/2023 7:[address] [facility] - 10/27/2023 8:05 AM CDT Every morning while on IV heparin. Every morning while on IV heparin. Necessary every morning while on IV heparin. Chas Soler MD HEMATOLOGY Performing Organization Address [facility] Co de Phone Number [facility] [address] [place] [address], * HEMATOCRIT (10/27/2023 7:33 AM CDT) HEMATOCRIT 36.0 33.0 - 51.0 % 10/27/2023 8:05 AM CDT [facility] Blood BLOOD SPECIMEN / Unknown Venipuncture / Unknown 10/27/2023 7:33 AM CDT 10/27/2023 7:[address] [facility] - 10/27/2023 8:05 AM CDT Every morning while on IV heparin. Every morning while on IV heparin. Necessary every morning while on IV heparin. Chas Soler MD HEMATOLOGY Performing Organization Address City/[facility] Co de Phone Number [facility] [address] [place] [address], * (ABNORMAL) APTT (10/27/2023 7:33 AM CDT) Only the most recent of3 resultswithin the time period is included. APTT 56(H) 28 - 36 sec 10/27/2023 8:02 AM CDT [facility] Blood BLOOD SPECIMEN / Unknown Venipuncture / Unknown 10/27/2023 7:33 AM CDT 10/27/2023 7:41 AM CDT Narrative [facility] - 10/27/2023 8:02 AM CDT Therapeutic Range: 57-87 seconds Chas Soler MD HEMATOLOGY Performing Organization Address [facility]/ZIP Co de Phone Number [facility] [address] [place] [address], * SCAN-CARDIAC STRIP (10/27/2023 6:04 AM CDT) Scanner OTHER * (ABNORMAL) TROPONIN T (HS) ONE TIME (10/27/2023 12:52 AM CDT) [facility] TROPONIN T HS 245(H) 6-10 ng/L ng/L 10/27/2023 1:44 AM CDT [facility] Blood BLOOD SPECIMEN / Unknown Venipuncture / Unknown 10/27/2023 12:52 AM CDT 10/27/2023 1:13 AM CDT Obi Ruiz MD CHEMISTRY Performing Organization Address [facility] Co de Phone Number [facility] [address] [place] [address], * SCAN-CARDIAC STRIP (10/26/2023 7:16 PM CDT) Scanner OTHER * EKG 12 LEAD (10/26/2023 5:12 PM CDT) Pathologist [facility] Interpretation Normal sinus rhythm Low voltage QRS [...] NOW QTc 464 ms BEYOND NOW P Loop 76 degrees BEYOND NOW R Loop 81 degrees BEYOND NOW T Loop 61 degrees BEYOND NOW 10/26/2023 5:12 PM CDT 10/27/2023 5:40 PM CDT Obi Ruiz MD EKG ORD BEYOND NOW [place], [place] * (ABNORMAL) TROPONIN T (HS) ACUTE W/2HR REFLEX (10/26/2023 4:18 PM CDT) TROPONIN T HS 231(H) 6-10 ng/L ng/L 10/26/2023 5:22 PM CDT [facility] Blood BLOOD SPECIMEN / Unknown Venipuncture / Unknown 10/26/2023 4:18 PM CDT 10/26/2023 4:51 PM CDT Narrative [facility] - 10/26/2023 5:22 PM CDT hs-cTnT [...] department patient population. Obi Ruiz MD CHEMISTRY Performing Organization Address City/[facility]/ZIP Co de Phone Number [facility] [address] [place] [address], [place] * TSH FOR ADD ON (10/26/2023 4:18 PM CDT) [facility] TSH 1.00 0.27 - 4.20 uIU/mL 10/26/2023 5:54 PM CDT [facility] Blood BLOOD SPECIMEN / Unknown Venipuncture / Unknown 10/26/2023 4:18 PM CDT 10/26/2023 4:51 PM CDT Narrative [facility] - 10/26/2023 5:54 PM CDT In Adults, TSH values between 5.00 and 10.00 uIU/ml do not necessarily indicate the presence of Hypothyroidism. Correlation with clinical findings such as presence of goiter and/or Thyroperoxidase (TPO) Antibody may be helpful. For more information please refer to IBIS 2004; 291: 228-238. Chas Soler MD CHEMISTRY Performing Organization Address [facility]/ZIP Co de Phone Number [facility] [address] [place] [address], [place] * CBC W PLT NO DIFF (10/26/2023 4:18 PM CDT) [facility] WHITE BLOOD COUNT 8.0 4.5 - 11.0 thou/cu mm 10/26/2023 4:58 PM CDT [facility] RED BLOOD COUNT 4.05 4.00 - 5.20 mil/cu mm 10/26/2023 4:58 PM CDT [facility] HEMOGLOBIN 12.6 12.0 - 16.0 g/dL 10/26/2023 4:58 PM CDT [facility] HEMATOCRIT 38.0 33.0 - 51.0 % 10/26/2023 4:58 PM CDT [facility] MCV 94 80 - 100 fL 10/26/2023 4:58 PM CDT [facility] MCH 31.1 26.0 - 34.0 pg 10/26/2023 4:58 PM CDT [facility] MCHC 33.2 32.0 - 36.0 g/dL 10/26/2023 4:58 PM CDT [facility] RDW 13.1 11.5 - 15.5 % 10/26/2023 4:58 PM CDT [facility] PLATELET COUNT 268 140 - 440 thou/cu mm 10/26/2023 4:58 PM CDT [facility] MPV 9.0 6.5 - 11.0 fL 10/26/2023 4:58 PM CDT [facility] NRBC 0.0 % 10/26/2023 4:58 PM CDT [facility] ABS NRBC 0.0 thou /cu mm 10/26/2023 4:58 PM CDT [facility] Blood BLOOD SPECIMEN / Unknown Venipuncture / Unknown 10/26/2023 4:18 PM CDT 10/26/2023 4:51 PM CDT Chas Soler MD HEMATOLOGY [facility] [address] [place] [address], * (ABNORMAL) PROTIME-INR (10/26/2023 4:18 PM CDT) INR 1.1 <1.3 10/26/2023 5:11 PM CDT [facility] PROTIME 12.5(H) 10.3 - 12.3 sec 10/26/2023 5:11 PM CDT [facility] Blood BLOOD SPECIMEN / Unknown Venipuncture / Unknown 10/26/2023 4:18 PM CDT 10/26/2023 4:51 PM CDT Narrative [facility] - 10/26/2023 5:11 PM CDT ?Therapeutic Range [...] Chas Soler MD HEMATOLOGY Performing Organization Address [facility] Co de Phone Number [facility] [address] [place] [address], [place] * T4,FREE (10/26/2023 4:18 PM CDT) [facility] T4,FREE 1.28 0.93 - 1.70 ng/dL 10/26/2023 5:54 PM CDT [facility] Blood BLOOD SPECIMEN / Unknown Venipuncture / Unknown 10/26/2023 4:18 PM CDT 10/26/2023 4:51 PM CDT Chas Soler MD CHEMISTRY Performing Organization Address [facility] de Phone Number [facility] [address] [place] [address], [place] * MAGNESIUM (10/26/2023 4:18 PM CDT) [facility] MAGNESIUM 1.7 1.6 - 2.4 mg/dL 10/26/2023 5:22 PM CDT [facility] Blood BLOOD SPECIMEN / Unknown Venipuncture / Unknown 10/26/2023 4:18 PM CDT 10/26/2023 4:51 PM CDT Chas Soler MD CHEMISTRY Performing Organization Address [facility] Co de Phone Number [facility] [address] [place] [address], [place] * (ABNORMAL) LIPID PANEL (10/26/2023 4:18 PM CDT) CHOLESTEROL,TOTAL 108 100 - 199 mg/dL 10/26/2023 5:54 PM CDT [facility] Comment: Cholesterol, Total Reference Ranges Desirable <200 mg/dL Borderline 200-239 mg/dL High >=240 mg/dL TRIGLYCERIDES 65 <150 mg/dL 10/26/2023 5:54 PM CDT [facility] HDL CHOLESTEROL 40(L) >40 mg/dL 5:54 PM CDT [facility] NON-HDL CHOLESTEROL 68 <145 mg/dl 10/26/2023 5:54 PM CDT [facility] CHOL/HDL RATIO 2.70 <4.50 10/26/2023 5:54 PM CDT [facility] LDL CHOLESTEROL 55 <=130 mg/dL 10/26/2023 5:54 PM CDT [facility] VLDL CHOLESTEROL 13 <=30 mg/dL 10/26/19 5:54 PM CDT [facility] Blood BLOOD SPECIMEN / Unknown Venipuncture / Unknown 10/26/2023 4:18 PM CDT 10/26/2023 4:51 PM CDT Obi Ruiz MD CHEMISTRY [facility] [address] [place] [address], * (ABNORMAL) BASIC METABOLIC PANEL (10/26/2023 4:18 PM CDT) SODIUM 138 136 - 145 mmol/L 10/26/2023 5:22 PM CDT [facility] POTASSIUM 4.3 3.5 - 5.1 mmol/L 10/26/2023 5:22 PM CDT [facility] CHLORIDE 106 98 - 107 mmol/L 10/26/2023 5:22 PM CDT [facility] CO2,TOTAL 22 22 - 29 mmol/L 10/26/2023 5:22 PM CDT [facility] ANION GAP 10 5 - 18 10/26/2023 5:22 PM CDT [facility] GLUCOSE 167(H) 70 - 99 mg/dL 10/26/2023 5:22 PM CDT [facility] CALCIUM 8.3(L) 8.8 - 10.2 mg/dL 10/26/2023 5:22 PM CDT [facility] BUN 16 8 - 23 mg/dL 10/26/2023 5:22 PM CDT [facility] [facility] CREATININE 0.75 0.50 - 0.90 mg/dL 10/26/2023 5:22 PM CDT [facility] BUN/CREAT RATIO 21(H) 10 - 20 5:22 PM CDT [facility] eGFR 90(L) >90 mL/min/1.7 3m2 10/26/2023 5:22 PM CDT [facility] Comment:As of 2021, eG FR [...] 4:51 PM CDT Chas Soler MD CHEMISTRY [facility] [address] [place] [id number], * SCAN-CARDIAC STRIP (10/26/2023 3:18 PM CDT) Scanner OTHER * SCAN-CARDIAC STRIP (10/26/2023 2:57 PM CDT) Scanner OTHER * XR MAMMO MARIO BILAT SCREEN (09/16/2023 3:48 PM ORDER MAKE UP CLERK) Anatomical Region Laterality Modality BREASTS, Breast Left, Breast Right Bilateral Mammography Impressions 09/20/2023 1:44 PM ORDER MAKE UP CLERK ??There is no radiographic evidence for malignancy. ??Recommend annual mammograms. MAMMOGRAM ASSESSMENT: ??ACR 1 Negative PATIENTS: You will also receive a letter with your examination results in an easy to read format. ??If you have questions about your results, please contact your referring provider. Narrative 09/20/2023 1:44 PM ORDER MAKE UP CLERK For Patients: As a result of the Century Cures Act, medical imaging exams and procedure reports are released immediately into your electronic medical record. You may view this report before your referring provider. If you have questions, please contact your health care provider. XR MAMMO MARIO BILAT SCREEN [[id number]] CLINICAL HISTORY: ??This is an asymptomatic 63 y.o. patient. INDICATION FOR EXAM: Mammogram Screening. TECHNIQUE: CC & MLO views were obtained. ??This study was evaluated with the assistance of Computer-Aided Detection. Breast Tomosynthesis was used in interpretation. COMPARISON FILM: Yes [facility]14[facility]18 [facility] FINDINGS: ??The breasts have scattered areas of fibroglandular density. There are no dominant masses, suspicious micro calcifications or areas of architectural distortion. Zoey Watters MD MAMMO * (ABNORMAL) ALT (SGPT) (08/30/2023 2:34 PM ORDER MAKE UP CLERK) ALT (SGPT) 123(H) 10 - 35 IU/L 08/30/2023 9:48 PM ORDER MAKE UP CLERK [facility] Blood BLOOD SPECIMEN / Unknown Venipuncture / Unknown 08/30/2023 2:34 PM ORDER MAKE UP CLERK 08/30/2023 2:35 PM ORDER MAKE UP CLERK Zoey Watters MD CHEMISTRY [facility] [address] [place] [address], * (ABNORMAL) AST (SGOT) (08/30/2023 2:34 PM ORDER MAKE UP CLERK) AST (SGOT) 41(H) 10 - 35 IU/L 08/30/2023 9:48 PM ORDER MAKE UP CLERK [facility] Blood BLOOD SPECIMEN / Unknown Venipuncture / Unknown 08/30/2023 2:34 PM ORDER MAKE UP CLERK 08/30/2023 2:35 PM ORDER MAKE UP CLERK Zoey Watters MD CHEMISTRY Performing Organization Address City/[facility] Co de Phone Number [facility] [address] [place] [address], [place] * HEMOGLOBIN A1C MONITORING (POCT) (08/30/2023 2:34 PM ORDER MAKE UP CLERK) HEMOGLOBIN A1C MONITORING (POCT) 6.3 <=6.4 % 08/30/2023 2:44 PM ORDER MAKE UP CLERK [facility] Blood BLOOD SPECIMEN / Unknown Venipuncture / Unknown 08/30/2023 2:34 PM ORDER MAKE UP CLERK 08/30/2023 2:35 PM ORDER MAKE UP CLERK Narrative [facility] - 08/30/2023 2:44 PM ORDER MAKE UP CLERK ? (<=6.9%) ? Indicates good control ? [...] Zoey Watters MD CHEMISTRY Performing Organization Address City/[facility]/ZIP Co de Phone Number [facility] [address] [place] [address], * SCAN CORRESP-LABORATORY RESULTS (08/25/2023 12:00 AM ORDER MAKE UP CLERK) Scanner OTHER * SCAN-RADIOLOGY REPORT (08/16/2023 12:00 AM ORDER MAKE UP CLERK) Anatomical Region Laterality Modality Other Scanner OTHER * COLONOSCOPY (11/04/2021 1:42 PM CDT) 11/04/2021 1:42 PM CDT Narrative Transcriptions Mg Matrins MD - 11/04/2021 2:25 PM CDT Patient [...] adequate candidate for conscious sedation. The [id number] was passed through the anus and advanced [...] 1:42 PM Procedure Code(s): --- Professional --- 46223, Colonoscopy, flexible; with removalof tumor(s), polyp(s), or other lesion(s) bysnare technique Diagnosis Code(s): --- Professional --- Z12.11, Encounter for screening formalignant neoplasm of colon K62.1, Rectal polyp CPT copyright 2020 [employer]. All rights reserved. The codes documented in this report are preliminary and upon battery tester and repairer reviewmay be revised to meet current compliance requirements. Scope In: 1:58:22 PM Scope Withdrawal Time 0 hours 8 minutes 16 seconds Scope Out: 2:16:54 PM Mg Martins MD PROCEDURE ORD * HPV HIGH RISK (10/02/2021 4:27 PM CDT) TYPE 16 Negative Negative 10/08/2021 11:18 AM CDT [facility] TYPE 18 Negative Negative 10/08/2021 11:18 AM CDT [facility] OTHER HIGH RISK TYPES Negative Negative 10/08/2021 11:18 AM CDT [facility] Other (Cervical) Non-Blood / Unknown 10/02/2021 4:27 PM CDT 10/06/2021 8:55 AM CDT Narrative [facility] - 10/08/2021 11:18 AM CDT HPV types 16, 18, 31, 33, 35, 39, 45, 51, 52, 56, 58, 59, 66 and 68 DNA were undetectable or below the pre-set threshold. Methodology: Lizbet Rubi 4800 HPV Test Zoey Watters MD MICROBIOLOGY [facility] [address] [place] [address], [place] * OCCULT BLOOD IFOBT STOOL (04/25/2019 2:00 PM CDT) STOOL BLOOD ,IFOBT Negative Negative 04/25/2019 3:[address] [facility] Stool STOOL SPECIMEN / Unknown Non-Blood / Unknown 04/25/2019 2:00 PM CDT 04/25/2019 3:04 PM CDT [facility] [address] [place] [address], * ANTI HIV 1/2 (04/04/2013 12:19 PM CDT) ANTI HIV 1/2 Non-reacti ve [facility] Blood specimen (specimen) BLOOD SPECIMEN / Unknown 04/04/2013 12:19 PM CDT 04/04/2013 12:14 PM CDT Evangelina Gil NP SEND OUTS [facility] INTERNAL ZIP [address] [place] [address] * ANTI HCV (11/24/2007 1:30 PM CDT) ANTI HCV Non-reacti ve [facility] Blood specimen (specimen) BLOOD SPECIMEN / Unknown 11/24/2007 1:30 PM CDT 11/24/2007 1:24 PM CDT Giovanni Blakely MD SEND OUTS [facility] INTERNAL ZIP [address] [address] from Last 3 Months or Most Recently [...] 10:05 AM 11/23/2011 5:38 PM Care Teams Home Designer Relationship Specialty Start Date End Date Zoey Watters MD [address] [place] [address] PCP - General Family Practice 02/06/21 [facility] Psychology 06/02/16 Charissa Lebron CNS Clinical Nurse Specialist 06/02/16
== END 2023-10-26 12:49 | disposition home or self-care (01) ==
LOC: AMB 10-28 15:42
PROVIDERS: PCP Family Medicine; Visit Provider Emergency Medicine
DX: I49.9 Cardiac arrhythmia, unspecified (principal)
CPT/HCPCS: A0425; A0434

== ENCOUNTER 2024-03-20 07:19 | Outpatient (CLI) | payer BC, SELFPAY ==
--- OUTSIDE RECORDS SUMMARY | 2024-03-21 01:11 | XMS_ITS | Clinical Summary ---
Author Organization [employer] [facility] Address [place], [place] [address] Care Team Providers Care Auto Service Representative Name Role Phone Gypsy Avitia LP Unavailable [phone] Charissa Lebron CRAWLER DRAGLINE OPERATOR Unavailable Unavaila Zoey Salinas MD Primary Care [...] Type Department Care Team Description 03/07/2024 Refill [facility] [address] [place] [address] Zoey Watters MD Refill Request (Albuterol) 03/06/2024 Refill [facility] [address] [place] [address] Zoey Watters MD Refill Request (Ventolin) 03/01/2024 2:45 PM CDT Office Visit [facility] [address] [place] [address] Zoey Watters MD Physical (64 Year Old Old female) 02/29/2024 Travel 02/22/2024 2:10 PM CDT Office Visit [facility] [address] [place] [address] Shirlene Preston PA Eye Problem 02/22/2024 Travel 02/21/2024 Nurse Triage [facility] [address] [place] [address] Zoey Watters MD Eye Problem 02/21/2024 Telephone [facility] [address] [place] [address] Zoey Watters MD Questions (stye in her eyes) 2024 Refill [facility] [address] [place] [address] Zoey Watters MD Refill Request (Aripiprazole, Allergy Relief (Cetirizine), Metformin, Duloxetine) 02/15/2024 Refill [facility] [address] [place] [address] Wilfred Horton MD Refill Request (Ventolin Hfa) 01/24/2024 Refill [facility] [address] [place] [address] Zoey Watters MD Refill Request (Ventolin Hfa) 12/24/2023 Telephone [facility] [address] [place] [address] Wilfred Horton MD 12/23/2023 12:48 PM CDT - 12/23/2023 11:59 PM CDT Hospital Encounter [facility] [address] [place] [address] Wilfred Horton MD Chronic obstructive pulmonary disease, unspecified COPD type (HC) 12/23/2023 Travel from Last 3 Months Immunizations Name Administration Dates Next Due AMB Influenza, IIV4 PF (=>6 mos Flulaval,Fluzone Fluarix)(Flu Clinic Only) 05/20/2017 COVID-19 Vaccine Spikevax (M oderna 50mcg/0.5mL) 12YO+ [id number] Formula PF 05/18/2023 COVID-19 vaccine (Pfizer-Bio NTech [...] st Contact Info) Description 06/22/2024 2:30 PM SANDING SUPERVISOR [facility] [address] [place], [place] [phone] Wilfred Horton MD [address] [facility] [address] [place] [address] 06/30/2024 [facility] [phone] Health Maintenance Due Date Last Done Comments [...] MARIO BILAT SCREEN Routine 09/16/2023 3:48 PM SANDING SUPERVISOR Visit for screening mammogram COLONOSCOPY SCREENING Routine [...] URINE <12.0 mg/L 03/02/2024 5:27 PM CDT [facility] CREATININE,URINE 0.33 g/L 03/02/20 5:27 PM CDT [facility] ALBUMIN TO CREATININE RATIO,RAND UR 03/02/2024 5:27 PM CDT [facility] Comment:Urine Albumin below measurement range, unable to calculate. Urine URINE SPECIMEN / Unknown Non-Blood / Unknown 03/01/2024 2:52 PM CDT 03/01/2024 2:52 PM CDT Narrative [facility] - 03/02/2024 5:27 PM CDT If Albumin to Creatinine Ratio is elevated, consider the following: ? Elevations seen with incipient nephropathy associated ?? with diabetes mellitus or hypertension. Stress, exercise,hematuria, ?? and urinary tract infection may also produce elevated results. If clinically indicated, confirm with ?24 Hour Albumin to Creatinine Ratio. ?? Zoey Watters MD URINE [facility] [address] [place] [address], * HEMOGLOBIN A1C MONITORING (POCT) (03/01/2024 2:46 PM CDT) Pathologist [facility] HEMOGLOBIN A1C MONITORING (POCT) 6.0 <=6.4 % 03/01/2024 3:03 PM CDT [facility] Blood BLOOD SPECIMEN / Unknown Venipuncture / Unknown 03/01/2024 2:46 PM CDT 03/01/2024 2:51 PM CDT Narrative [facility] - 03/01/2024 3:03 PM CDT ? (<=6.9%) [...] Zoey Watters MD CHEMISTRY Performing Organization Address [facility] Co de Phone Number [facility] [address] [place] [address], * HEMOGLOBIN (12/23/2023 1:02 PM CDT) [facility] HEMOGLOBIN 12.5 12.0 - 16.0 g/dL 12/23/2023 1:04 PM CDT [facility] MCV 95 80 - 100 fL 12/23/2023 1:04 PM CDT [facility] Blood BLOOD SPECIMEN / Unknown Venipuncture / Unknown 12/23/2023 1:02 PM CDT 12/23/2023 1:02 PM CDT Wilfred Horton MD HEMATOLOGY Performing Organization Address [facility]/ZIP Co de Phone Number [facility] [address] [place] [address], [place] [phone] * COMPLETE PULMONARY FUNCTION TEST WITH BRONCHODILATOR [...] MD ?? Pulmonary Medicine and Critical Care [facility] Wilfred Horton MD PFT ORD Performing Organization Address [facility] Co de Phone Number [facility] [place], [place] * (ABNORMAL) LIPID PANEL (10/26/2023 4:18 PM CDT) [facility] CHOLESTEROL,TOTAL 108 100 - 199 mg/dL 10/26/2023 5:54 PM CDT [facility] [employer] Comment: Cholesterol, Total Reference Ranges Desirable <200 mg/dL Borderline 200-239 mg/dL High >=240 mg/dL TRIGLYCERIDES 65 <150 mg/dL 10/26/2023 5:54 PM CDT [facility] [email or web address] [facility] HDL CHOLESTEROL 40(L) >40 mg/dL 5:54 PM CDT [facility] NON-HDL CHOLESTEROL 68 <145 mg/dl 10/26/2023 5:54 PM CDT [facility] [employer] CHOL/HDL RATIO 2.70 <4.50 10/26/2023 5:54 PM CDT [facility] LDL CHOLESTEROL 55 <=130 mg/dL 10/26/2023 5:54 PM CDT [facility] [employer] [facility] VLDL CHOLESTEROL 13 <=30 mg/dL 10/26/19 24 5:54 PM CDT [facility] Blood BLOOD SPECIMEN / Unknown Venipuncture / Unknown 10/26/2023 4:18 PM CDT 10/26/2023 4:51 PM CDT Obi Ruiz MD CHEMISTRY [facility] [address] [place] [address], * XR MAMMO MARIO BILAT SCREEN (09/16/2023 3:48 PM SANDING SUPERVISOR) Anatomical Region Laterality Modality BREASTS, Breast Left, Breast Right Bilateral Mammography Impressions 09/20/2023 1:44 PM SANDING SUPERVISOR ??There is no radiographic evidence for malignancy. ??Recommend annual mammograms. MAMMOGRAM ASSESSMENT: ??ACR 1 Negative PATIENTS: You will also receive a letter with your examination results in an easy to read format. ??If you have questions about your results, please contact your referring provider. Narrative 09/20/2023 1:44 PM SANDING SUPERVISOR For Patients: As a result of the Century Cures Act, medical imaging exams and procedure reports are released immediately into your electronic medical record. You may view this report before your referring provider. If you have questions, please contact your health care provider. XR MAMMO MARIO BILAT SCREEN [[id number]] CLINICAL HISTORY: ??This is an asymptomatic 63 y.o. patient. INDICATION FOR EXAM: Mammogram Screening. TECHNIQUE: CC & MLO views were obtained. ??This study was evaluated with the assistance of Computer-Aided Detection. Breast Tomosynthesis was used in interpretation. COMPARISON FILM: Yes 06/14/18 [facility] 05/27/16 [facility] FINDINGS: ??The breasts have scattered areas [...] adequate candidate for conscious sedation. The [id number] was passed through the anus and advanced [...] 1:42 PM Procedure Code(s): --- Professional --- 65103, Colonoscopy, flexible; with removalof tumor(s), polyp(s), or other lesion(s) bysnare technique Diagnosis Code(s): --- Professional --- Z12.11, Encounter for screening formalignant neoplasm of colon K62.1, Rectal polyp CPT copyright 2020 [employer]. All rights reserved. The codes documented in this report are preliminary and upon stable hand reviewmay be revised to meet current compliance requirements. Scope In: 1:58:22 PM Scope Withdrawal Time 0 hours 8 minutes 16 seconds Scope Out: 2:16:54 PM Mg Martins MD PROCEDURE ORD * HPV HIGH RISK (10/02/2021 4:27 PM CDT) TYPE 16 Negative Negative 10/08/2021 11:18 AM CDT [facility] TYPE 18 Negative Negative 10/08/2021 11:18 AM CDT [facility] OTHER HIGH RISK TYPES Negative Negative 10/08/2021 11:18 AM CDT [facility] Other (Cervical) Non-Blood / Unknown 10/02/2021 4:27 PM CDT 10/06/2021 8:55 AM CDT Narrative [facility] - 10/08/2021 11:18 AM CDT HPV types 16, 18, 31, 33, 35, 39, 45, 51, 52, 56, 58, 59, 66 and 68 DNA were undetectable or below the pre-set threshold. Methodology: Lizbet Rubi 4800 HPV Test Zoey Watters MD MICROBIOLOGY [facility] [address] [place] [address], [place] * OCCULT BLOOD IFOBT STOOL (04/25/2019 2:00 PM CDT) STOOL BLOOD ,IFOBT Negative Negative 04/25/2019 3:17 PM CDT [facility] Stool STOOL SPECIMEN / Unknown Non-Blood / Unknown 04/25/2019 2:00 PM CDT 04/25/2019 3:04 PM CDT [facility] [address] [place] [address], [place] [phone] * ANTI HIV 1/2 (04/04/2013 12:19 PM CDT) ANTI HIV 1/2 Non-reacti ve [facility] Blood specimen (specimen) BLOOD SPECIMEN / Unknown 04/04/2013 12:19 PM CDT 04/04/2013 12:14 PM CDT Evangelina Gil TUBE LANCER SEND OUTS [facility] [place]NAL ZIP [phone] [place] [address] * ANTI HCV (11/24/2007 1:30 PM CDT) ANTI HCV Non-reacti ve [facility] Blood specimen (specimen) BLOOD SPECIMEN / Unknown 11/24/2007 1:30 PM CDT 11/24/2007 1:24 PM CDT Giovanni Blakely MD SEND OUTS [facility] INTERNAL ZIP [phone] [address] from Last 3 Months or Most Recently [...] 10:05 AM 11/23/2011 5:38 PM Care Teams Auto Service Representative Relationship Specialty Start Date End Date Zoey Watters MD [address] [place] [address] PCP - General Family Practice 02/06/21 Gypsy Avitia LP Psychology 06/02/16 Charissa Lebron CNS Clinical Nurse Specialist 06/02/16
== END 2024-03-20 07:20 | disposition home or self-care (01) ==
LOC: AMB 03-21 01:09
PROVIDERS: PCP Family Medicine; Visit Provider Family Medicine
DX: R06.09 Other forms of dyspnea (principal)
CPT/HCPCS: A0425; A0427

== ENCOUNTER 2024-03-20 07:54 | Emergency (ER) | payer BC, SELFPAY ==
[2024-03-20 07:56] VITALS: BP 149/81; PULSE 100; RESP 20; TEMP 36.6; O2SAT 90; BMI 24.5
--- NOTE | 2024-03-20 08:07 | CRLHL7_ITS ---
For Patients: As a result of the Cures Act, medical imaging exams and procedure reports are released immediately into your electronic medical record. You may view this report before your referring provider. If you have questions, please contact your health care provider. INDICATION: Shortness of breath. TECHNIQUE: Chest 2 views. COMPARISON: CT chest February 28, 2023. FINDINGS: Cardiovascular and mediastinum: Heart size is normal. Unremarkable mediastinum. Pacemaker is present. Lungs and pleural spaces: Lungs are clear. No sign of infiltrate or mass. No sign of pleural effusion. No pneumothorax. Bones and soft tissues: No significant findings. IMPRESSION: No acute or significant findings. Dictated by Chandler Fox MD @ 03/20/2024 9:02:15 AM (Electronically Signed)
--- NOTE | 2024-03-20 08:09 | ED_ITS ---
HPI - SOB/Dyspnea General Chief Complaint: Shortness of Breath/Dyspnea Stated Complaint: COPD shortness of breath Time Seen by Provider: 03/20/24 08:02 History of Present Illness HPI Narrative: Patient is a 64-year-old former smoker who has COPD who woke short of breath this morning. She took a nebulizer treatment was still short of breath called for an ambulance to give her a neb on the way in of albuterol and patient is feeling much better. She has an oxygen saturation upon arrival of 90% she is no longer having more labored respirations. She is does not feel like she has been sick with viral syndrome and has no head neck congestion no cough production. No chest pain no orthopnea no PND no nausea no vomiting. Related Data Home Medications ?Medication ?Instructions ?Recorded ?Confirmed acyclovir 5 % topical ointment 1 applic topical 02/27/23 albuterol sulfate 90 mcg/actuation 1 puff inhalation Q4H PRN 02/27/23 03/20/24 aerosol inhaler (Ventolin HFA) aripiprazole 5 mg tablet 5 mg PO DAILY 02/27/23 03/20/24 atorvastatin 20 mg tablet 20 mg PO DAILY 02/27/23 03/20/24 duloxetine 60 mg capsule,delayed 60 mg PO DAILY 02/27/23 03/20/24 release epinephrine 0.3 mg/0.3 mL 0.3 mg IM ONCE PRN 02/27/23 10/26/23 injection, auto-injector fenofibrate nanocrystallized 145 145 mg PO DAILY 02/27/23 03/20/24 mg tablet ipratropium 0.5 mg-albuterol 3 mg 3 ml inhalation Q4H PRN 02/27/23 03/20/24 (2.5 mg base)/3 mL nebulization soln metformin 500 mg tablet 1,000 mg PO BID 02/27/23 03/20/24 metoprolol succinate 50 mg 50 mg PO DAILY 02/27/23 03/20/24 tablet,extended release 24 hr tiotropium 2.5 mcg-olodaterol 2.5 2 puff inhalation DAILY 02/27/23 10/26/23 mcg/actuation mist for inhalation (Stiolto Respimat) valacyclovir 500 mg tablet 500 mg PO Q12H PRN 02/27/23 03/20/24 budesonide-formoterol HFA 80 1 inh inhalation 10/26/23 mcg-4.5 mcg/actuation aerosol inhaler (Symbicort) nystatin 100,000 unit/mL oral PO 10/26/23 suspension tiotropium bromide 2.5 2 puff inhalation DAILY 10/26/23 03/20/24 mcg/actuation mist for inhalation (Spiriva Respimat) cetirizine 10 mg tablet (Allergy 10 mg PO DAILY 03/20/24 03/20/24 Relief (cetirizine)) Allergies Allergy/AdvReac Type Severity Reaction Status Date / Time bupropion [From Wellbutrin] Allergy Intermediate Verified 03/20/24 08:00 Latex, Natural Rubber Allergy Intermediate Verified 03/20/24 08:00 Review of Systems Status of ROS: Reports: 10 or more systems reviewed and unremarkable except as noted in History and below [facility] Social History Smoking Status: Never smoker Do you use any of these nicotine containing products: None How often do you have a drink containing alcohol: never How often do you have six or more drinks on one occasion: Never AUDIT-C Alcohol total score: 0 Non-prescribed substance use: denies use service: No Exam Narrative: Exam Narrative: EXAM GENERAL: Patient appears comfortable and well. EYES: No scleral icterus. LYMPH: No supraclavicular or cervical lymphadenopathy. SKIN: Visible skin seen during exam normal or with benign process only. EXT: No dependent lower extremity pedal edema. HEART: Regular rate and rhythm with no murmurs, rubs, or gallops. LUNGS: Clear to auscultation bilaterally with no crackles or wheezes. ABD: Soft, non tender, non distended. PSYCH: Good eye contact, speech is not pressured. Const: Vital Signs, click to edit/add: Vital Signs - 24 hr 03/20/24 07:56 Temperature 97.8 F Pulse Rate [Right Pulse Oximeter] 100 Respiratory Rate 20 Blood Pressure [Ri ght Upper Arm] 149/81 H Pulse Oximetry 90 Oxygen Delivery Me thod Room Air Course Course ED Course: Patient seen and examined. Chest x-ray ordered. Vital Signs Vital signs: Initial Vital Signs Temperature 97.8 F 03/20/24 07:56 Temperature Source Temporal Artery Scan 03/20/24 07:56 Pulse Rate 100 03/20/24 07:56 Pulse Rhythm Regular 03/20/24 07:56 Respiratory Rate 20 03/20/24 07:56 Blood Pressure 149/81 H 03/20/24 07:56 Blood Pressure Mean 103 03/20/24 07:56 Blood Pressure Position Sitting 03/20/24 07:56 Pulse Oximetry 90 03/20/24 07:56 Oxygen Delivery Method Room Air 03/20/24 07:56 Vital Signs Temperature 97.8 F 03/20/24 07:56 Pulse Rate 100 03/20/24 07:56 Respiratory Rate 20 03/20/24 07:56 Blood Pressure 149/81 H 03/20/24 07:56 Pulse Oximetry 90 03/20/24 07:56 Oxygen Delivery Method Room Air 03/20/24 07:56 Temperature 97.8 F 03/20/24 07:56 Pulse Rate 100 03/20/24 07:56 Respiratory Rate 20 03/20/24 07:56 Blood Pressure 149/81 H 03/20/24 07:56 Pulse Oximetry 90 03/20/24 07:56 Oxygen Delivery Method Room Air 03/20/24 07:56 MDM - SOB/Dyspnea MDM Narrative Medical decision making narrative: Patient is a 64-year-old woman with COPD who comes in today with cough and shortness of breath. Chest x-ray is unremarkable. She had clearing of her symptoms with nebulizer treatment. We did treat her with a Z-Manuel plus prednisone plus albuterol with close outpatient follow-up. Differential diagnosis includes but not limited to COPD exacerbation congestive heart failure pneumonia pneumothorax pleural effusion. Discharge Plan Discharge Clinical Impression: COPD exacerbation Patient Disposition: Home, Self-Care Condition: Stable Instructions: COPD (Chronic Obstructive Pulmonary Disease) (ED) Additional Instructions: Zithromax as directed Prednisone as directed Albuterol as directed Follow-up with your doctor as needed Activity Level: No Restrictions Discharge Diet: Regular Prescriptions: No Action metformin 500 mg tablet 1,000 mg PO BID atorvastatin 20 mg tablet 20 mg PO DAILY ipratropium-albuterol 0.5 mg-3 mg(2.5 mg base)/3 mL solution for nebulization 3 ml INHALATION Q4H PRN Patient Comments: [NO ORIGINAL SIG] metoprolol succinate 50 mg tablet extended release 24 hr 50 mg PO DAILY valacyclovir 500 mg tablet 500 mg PO Q12H PRN acyclovir 5 % ointment 1 applic topical epinephrine 0.3 mg/0.3 mL auto-injector 0.3 mg IM ONCE PRN albuterol sulfate [Ventolin HFA] 90 mcg/actuation HFA aerosol inhaler 1 puff inhalation Q4H PRN aripiprazole 5 mg tablet 5 mg PO DAILY duloxetine 60 mg capsule,delayed release(DR/EC) 60 mg PO DAILY fenofibrate nanocrystallized 145 mg tablet 145 mg PO DAILY Stiolto Respimat 2.5-2.5 mcg/actuation mist 2 puff inhalation DAILY nystatin 100,000 unit/mL suspension PO budesonide-formoterol [Symbicort] 80-4.5 mcg/actuation HFA aerosol inhaler 1 inh inhalation Spiriva Respimat 2.5 mcg/actuation mist 2 puff inhalation DAILY cetirizine [Allergy Relief (cetirizine)] 10 mg tablet 10 mg PO DAILY Follow Up/Referrals: Zoey Watters MD [Primary Care Provider] - Stand Alone Forms: [facility] Info Instructions
--- OUTSIDE RECORDS SUMMARY | 2024-03-20 08:22 | XMS_ITS | Clinical Summary ---
Author Organization [facility] Address [place], [place] [address] Care Team Providers Care Associate Medical Director Name Role Phone Gypsy Avit[employer] LP Unavailable [phone] Charissa Lebron [employer]PER Unavailable Unavaila Zoey Salinas MD Primary Care Provider Allergies Active Allergy Reactions Criticality Noted Date Comments Bupropion Agitation High 09/24/2006 Latex Hives High 11/23/2011 Welts Venom-Yellow Jacket Other - Describe In Comment Field Unknown 04/25/2015 Arm swelling Medications Medication Sig Dispensed Refills Start Date End Date Status DOCOSAHEXANOIC ACID/EPA (FISH OIL ORAL) Take 1,000 mg by mouth once daily. Active MULTIVITAMIN ORAL Take 1 Tablet by mouth once daily. Active aspirin (ECOTRIN) 81 mg enteric coated tablet Take 1 tablet by mouth once daily with a meal. 0 07/02/20 15 Active blood sugar diagnostic (Contour Next Test Strips) stripIndications:Ty pe 2 diabetes mellitus without complication, without long-term current use of insulin (HC) USE WITH METER TO TEST BLOOD GLUCOSE ONCE A DAY 100 Each 3 11/21/19 22 Active NebulizerIndication s:COPD exacerbation (HC) Nebulizer, disposable neb kit x 4, reuseable neb kit x 1, mask x 1, filters x 1. Frequency of use: daily; Medication: duoneb Length of need: 12 months 1 Each 02/24/20 23 Active CRANBERRY ORAL Take 1 Capsule by mouth once daily. Active nitroglycerin (NITROSTAT) 0.4 mg sublingual tabletIndications:N STEMI (non-ST elevated myocardial infarction) (HC) Place 1 Tablet (0.4 mg) under the tongue every 5 minutes if needed for Chest Pain. SIT DOWN prior to taking this medication. 22 Tablet 03/01/20 23 Active budesonide-formoter oL (Symbicort) 80-4.5 mcg/actuation (80-4.5 mcg each actuation) inhalerIndications: Chronic obstructive pulmonary disease, unspecified COPD type (HC) Inhale 2 Puffs by mouth two times daily. 10.2 g 05/25/20 23 Active tiotropium bromide (Spiriva Respimat) 2.5 mcg/actuation mist for inhalationIndicatio ns:Chronic obstructive pulmonary disease, unspecified COPD type (HC) Inhale 2 Puffs by mouth once daily. 1 Each 05/25/20 23 Active EPINEPHrine (EPIPEN) 0.3 mg/0.3 mL auto-injectorIndica tions:Bee allergy status INJECT 0.3 MG (1 PEN) INTRAMUSCULARLY EACH TIME IF NEEDED FOR ALLERGIC REACTION 2 Each 11/24/19 24 Active EPINEPHrine (EPIPEN) 0.3 mg/0.3 mL auto-injectorIndica tions:Bee allergy status Inject 0.3 mg (1 Pen) intramuscular each time if needed for Allergic Reaction. 2 Each 11/26/19 24 Active ARIPiprazole (ABILIFY) 5 mg tabletIndications:M oderate episode of recurrent major depressive disorder (HC) TAKE ONE TABLET BY MOUTH EVERY MORNING 100 Tablet 3 02/22/20 24 Active erythromycin ophthalmic ointment 0.5%Indications:Les ion of eyelid Apply 1 Strip to both eyes 6 times daily. 3.5 g 02/22/20 24 Active atorvastatin (LIPITOR) 80 mg tabletIndications:N STEMI (non-ST elevated myocardial infarction) (HC) Take 1 Tablet (80 mg) by mouth at bedtime. 100 Tablet 3 03/01/20 24 Active cetirizine (Allergy Relief, cetirizine,) 10 mg tabletIndications:A llergic rhinitis due to pollen, unspecified seasonality Take 1 Tablet (10 mg) by mouth once daily. 100 Tablet 3 03/01/20 24 Active DULoxetine (CYMBALTA) 60 mg Delayed-release capsuleIndications: Moderate episode of recurrent major depressive disorder (HC) Take 2 Capsules (120 mg) by mouth once daily. 200 Capsule 3 03/01/20 24 Active fenofibrate nanocrystallized (TRICOR) 145 mg tabletIndications:H ypertriglyceridemia Take 1 Tablet (145 mg) by mouth once daily with a meal. 100 Tablet 3 03/01/20 24 Active metFORMIN (GLUCOPHAGE) 500 mg tabletIndications:T ype 2 diabetes mellitus without complication, without long-term current use of insulin (HC) Take 2 Tablets (1,000 mg) by mouth two times daily with meals. 400 Tablet 3 03/01/20 24 Active metoprolol succinate (TOPROL XL) 50 mg sustained-release tabletIndications:E ssential hypertension Take 1 Tablet (50 mg) by mouth once daily. 100 Tablet 3 03/01/20 24 Active albuterol-ipratropi um (DUONEB) (2.5-0.5 mg) in 3 mL NEBULIZATION solutionIndications :COPD, moderate (HC) Inhale 3 mL via a nebulizer 4 times daily if needed for Shortness Of Breath or Wheezing. 90 mL 3 03/01/20 24 Active acyclovir (ZOVIRAX) 5 % ointmentIndications :Herpes simplex virus (HSV) infection Apply topically to affected area(s) 6 times daily for 7 days as needed for HSV outbreak 30 g 3 03/01/20 24 Active albuterol HFA (Ventolin HFA) 90 mcg/actuation inhalerIndications: Chronic obstructive pulmonary disease, unspecified COPD type (HC) Inhale 1-2 Puffs by mouth every 4 hours if needed for Shortness Of Breath or Wheezing. 1 Each 03/07/20 24 Active ARIPiprazole (ABILIFY) 5 mg tabletIndications:M oderate episode of recurrent major depressive disorder (HC) Take 1 Tablet (5 mg) by mouth every morning. 100 Tablet 3 02/06/20 23 2023 Discontinued DULoxetine (CYMBALTA) 60 mg Delayed-release capsuleIndications: Moderate episode of recurrent major depressive disorder (HC) Take 2 Capsules (120 mg) by mouth once daily. 200 Capsule 3 02/06/20 23 2023 Discontinued fenofibrate nanocrystallized (TRICOR) 145 mg tabletIndications:H ypertriglyceridemia Take 1 Tablet (145 mg) by mouth once daily with a meal. 100 Tablet 3 02/06/20 23 2023 Discontinued(R eorder (E-cancel not sent)) metFORMIN (GLUCOPHAGE) 500 mg tabletIndications:T ype 2 diabetes mellitus without complication, without long-term current use of insulin (HC) Take 2 Tablets (1,000 mg) by mouth two times daily with meals. 400 Tablet 3 02/06/20 23 2023 Discontinued metoprolol succinate (TOPROL XL) 50 mg sustained-release tabletIndications:E ssential hypertension Take 1 Tablet (50 mg) by mouth once daily. 100 Tablet 3 02/06/20 23 2023 Discontinued(R eorder (E-cancel not sent)) cetirizine (Allergy Relief, cetirizine,) 10 mg tabletIndications:A llergic rhinitis due to pollen, unspecified seasonality Take 1 Tablet (10 mg) by mouth once daily. 100 Tablet 3 02/06/20 23 2023 Discontinued acyclovir (ZOVIRAX) 5 % ointment Apply topically to affected area(s) 6 times daily for 7 days as needed for HSV outbreak 2023 Discontinued(R eorder (E-cancel not sent)) albuterol-ipratropi um (DUONEB) (2.5-0.5 mg) in 3 mL NEBULIZATION solution Inhale 1 Neb via a nebulizer two times daily. 2023 Discontinued(R eorder (E-cancel not sent)) valACYclovir (VALTREX) 500 mg tablet Take 1000 mg by mouth twice for 5 days as needed for HSV outbreak 2023 Discontinued(* Medication adjustment) atorvastatin (LIPITOR) 80 mg tabletIndications:N STEMI (non-ST elevated myocardial infarction) (HC) Take 1 Tablet (80 mg) by mouth at bedtime. 100 Tablet 3 03/08/20 23 2023 Discontinued(R eorder (E-cancel not sent)) Ventolin HFA 90 mcg/actuation inhalerIndications: Chronic obstructive pulmonary disease, unspecified COPD type (HC) INHALE ONE TO TWO PUFFS BY MOUTH EVERY 4 HOURS NEEDED FOR SHORTNESS OF BREATH OR WHEEZING 18 g 02/15/20 24 2023 Discontinued(R eorder (E-cancel not sent)) cetirizine (Allergy Relief, cetirizine,) 10 mg tabletIndications:A llergic rhinitis due to pollen, unspecified seasonality Take 1 Tablet (10 mg) by mouth once daily. 90 Tablet 1 02/21/20 24 2023 Discontinued(R eorder (E-cancel not sent)) metFORMIN (GLUCOPHAGE) 500 mg tabletIndications:T ype 2 diabetes mellitus without complication, without long-term current use of insulin (HC) Take 2 Tablets (1,000 mg) by mouth two times daily with meals. 120 Tablet 02/21/20 24 2023 Discontinued(R eorder (E-cancel not sent)) DULoxetine (CYMBALTA) 60 mg Delayed-release capsuleIndications: Moderate episode of recurrent major depressive disorder (HC) Take 2 Capsules (120 mg) by mouth once daily. 60 Capsule 02/21/20 24 2023 Discontinued(R eorder (E-cancel not sent)) valACYclovir (VALTREX) 500 mg tabletIndications:H erpes simplex virus (HSV) infection Take 2 Tablets (1,000 mg) by mouth once daily for 3 days. 18 Tablet 2 03/01/20 24 2023 Active Problems Problem Noted Date Diagnosed Date Type 2 diabetes mellitus wit h other specified complication, without long-term current use of insulin 11/06/2023 CAD (coronary artery disease) 10/26/2023 NSTEMI (non-ST elevated myocardial infarction) 0 02/28/2023 Overview: 02/28/23 ANW. Troponin elevation in context of COPD exacerbation. Angiogram showed chronic total occlusion of RCA with collaterals. No intervention performed. Favor medical management with imdur. Severe recurrent major depre ssion without psychotic features 10/02/2021 COPD, moderate 08/20/2018 Overview: Per pulmonary consult [...] stress female 02/25/2011 Vitamin D deficiency 05/14/2010 Allergic rhinitis due to pollen 09/24/2006 Overview: environmental allergies Herpes simplex without mention of complication 0 09/24/2006 Other and unspecified hyperlipidemia 09/24/2006 Overview: hypertriglyceremia Posttraumatic stress disorder Pap smear for cervical cancer screening Overview: 09/2021 NIL/HPV negative. Plan: Pap/HPV due 09/2026 Resolved Problems Problem Noted Date Diagnosed Date Resolved Date Cannabis abuse with intoxication 03/01/2024 03/01/2024 Symptomatic bradycardia 10/26/202302/16 Elevated troponin 10/26/2023 03/01/2024 Type 2 diabetes mellitus wit hout complication, without long-term current use of insulin 07/30/2022 03/01/2024 Pyelonephritis 04/18/2019 03/01/2024 Acute kidney injury 04/18/2019 03/01/20 24 Septic shock 04/17/2019 03/01/2024 Tobacco use disorder 09/25/2009 024 Major depressive disorder, r ecurrent episode, unspecified [...] Encounters Date Type Department Care Team Description 03/07/2024 Refill [facility] [address] [place] [address] Zoey Watters MD Refill Request (Albuterol) 03/06/2024 Refill [facility] [address] [place] [address] Zoye Watters MD Refill Request (Ventolin) 03/01/2024 2:45 PM CDT Office Visit [facility] [address] [place] [address] Zoey Watters MD Physical (64 Year Old Old female) 02/29/2024 Travel 02/22/2024 2:10 PM CDT Office Visit [facility] [address] [place] [address] Shirlene Preston PA Eye Problem 02/22/2024 Travel 02/21/2024 Nurse Triage [facility] [address] [place] [address] Zoey Watters MD Eye Problem 02/21/2024 Telephone [facility] [address] [place] [address] Zoey Watters MD Questions (stye in her eyes) 2024 Refill [facility] [address] [place] [address] Zoey Watters MD Refill Request (Aripiprazole, Allergy Relief (Cetirizine), Metformin, Duloxetine) 02/15/2024 Refill [facility] [address] [place] [address] Wilfred Horton MD Refill Request (Ventolin Hfa) 01/24/2024 Refill [facility] [address] [place] [address] Zoey Watters MD Refill Request (Ventolin Hfa) 12/24/2023 Telephone [facility] [address] [place] [address] Wilfred Horton MD 12/23/2023 12:48 PM CDT - 12/23/2023 11:59 PM CDT Hospital Encounter [facility] [place] [address] [place] [address] Wilfred Horton MD Chronic obstructive pulmonary disease, unspecified COPD type (HC) 12/23/2023 Travel from Last 3 Months Immunizations Name Administration Dates Next Due AMB Influenza, IIV4 PF (=>6 mos Flulaval,Fluzone Fluarix)(Flu Clinic Only) 05/20/2017 COVID-19 Vaccine Spikevax (M oderna 50mcg/0.5mL) 12YO+ [id number] Formula PF 05/18/2023 COVID-19 vaccine (Pfizer-Bio NTech [...] Given: Yes Alcohol Use Standard Drinks/Week Comments Yes 0 (1 standard drink = 0.6 oz pur e alcohol) rare PHQ-2 Answer Date Recorded PHQ-2 TOTAL SCORE 2 03/01/2024 Social Connections Answer Date Recorded Frequency of Communication with Friends and Fami ly Not on file 03/08/2024 Financial Resource Strain Answer Date R ecorded [...] Outcome GA Total Labor Labor/2nd/3rd Weight Sex Type Anes PTL Marleny A1 A5 Name Clin Last Filed Vital Signs Vital Sign Reading Time Taken Comments Blood Pressure 127/83 03/01/2024 3:07 PM CDT Pulse 80 03/01/2024 3:07 PM CDT Temperature 37.1 ??C (98.7 ??F) 03/01/2024 3:07 PM CD T Respiratory Rate 18 10/29/2023 7:45 AM CDT Oxygen Saturation 96% 03/01/2024 3:07 PM CDT Inhaled Oxygen Concentration - - Weight 59.7 kg (131 lb 9.6 oz) 03/01/2024 3:07 P M CDT Height 157.3 cm (5' 1.93) 03/01/2024 3:07 PM CD T Body Mass Index 24.13 03/01/2024 3:07 PM CDT Plan of Treatment Upcoming Encounters Date Type Department Care Team (Late st Contact Info) Description 06/22/2024 2:30 PM BACKBREAKER [facility] [address] [place], [place] [id number] Wilfred Horton MD [address] [facility] [address] [place] [address] 06/30/2024 [facility]iac [facility] [phone] Health Maintenance Due Date Last Done Comments Influenza for age 50-64 03/19/2024 05/18/20 23, 07/30/2022, 10/02/2021, Additional history exists BMI (ht and wt on same day) for age 18+ 03/01/2025 03/01/2024, 12/01/2023, 08/12/2023, Additional history exists Depression screening for age 12+ 03/01/2025 03/01/2024, 03/18/2023, 09/20/2022, Additional history exists Mammogram for age 45-75 09/15/2025 09/16/19 24, 06/14/2018, 05/27/2016, Additional history exists [...] Procedure Name Priority Date/Time Associated Diagnosis Comments URINE ALBUMIN TO CREATININE RATIO, RANDOM Routine 03/01/2024 2:52 PM CDT Type 2 diabetes mellitus without complication, without long-term current use of insulin (HC) HEMOGLOBIN A1C Routine 03/01/2024 2:46 PM CDT Type 2 diabetes mellitus without complication, without long-term current use of insulin (HC) PACER NORA DUAL CHAMBER WO REPROG Routine 02/29/2024 2:59 PM CDT Fitting or adjustment of cardiac pacemaker HEMOGLOBIN Today 12/23/2023 1:02 PM CDT COMPLETE PULMONARY FUNCTION TEST WITH BRONCHODILATOR Routine 12/23/2023 1:00 PM CDT Chronic obstructive pulmonary disease, unspecified COPD type (HC) LIPID PANEL MARILYN 10/26/2023 4:18 PM CDT XR MAMMO MARIO BILAT SCREEN Routine 09/16/2023 3:48 PM BACKBREAKER Visit for screening mammogram COLONOSCOPY SCREENING Routine 11/04/2021 1:22 PM CDT [...] Recently Relevant to Health Maintenance Results * URINE ALBUMIN TO CREATININE RATIO, RANDOM (03/01/2024 2:52 PM CDT) ALB RAND URINE <12.0 mg/L 03/02/2024 5:27 PM CDT [facility] CREATININE,URINE 0.33 g/L 03/02/20 5:27 PM CDT [facility] ALBUMIN TO CREATININE RATIO,RAND UR 03/02/2024 5:27 PM CDT [facility] Comment:Urine Albumin below measurement range, unable to calculate. Urine URINE SPECIMEN / Unknown Non-Blood / Unknown 03/01/2024 2:52 PM CDT 03/01/2024 2:52 PM CDT Narrative [facility] - 03/02/2024 5:27 PM CDT If Albumin to Creatinine Ratio is elevated, consider the following: ? Elevations seen with incipient nephropathy associated ?? with diabetes mellitus or hypertension. Stress, exercise,hematuria, ?? and urinary tract infection may also produce elevated results. If clinically indicated, confirm with ?24 Hour Albumin to Creatinine Ratio. ?? Zoey Watters MD URINE [facility] [address] [place] [address], * HEMOGLOBIN A1C MONITORING (POCT) (03/01/2024 2:46 PM CDT) Pathologist [facility] HEMOGLOBIN A1C MONITORING (POCT) 6.0 <=6.4 % 03/01/2024 3:03 PM CDT [facility] Blood BLOOD SPECIMEN / Unknown Venipuncture / Unknown 03/01/2024 2:46 PM CDT 03/01/2024 2:51 PM CDT Narrative [facility] - 03/01/2024 3:03 PM CDT ? (<=6.9%) ? Indicates good control ? [...] Zoey Watters MD CHEMISTRY Performing Organization Address [facility] Co de Phone Number [facility] [address] [place] [address], * HEMOGLOBIN (12/23/2023 1:02 PM CDT) [facility] HEMOGLOBIN 12.5 12.0 - 16.0 g/dL 12/23/2023 1:04 PM CDT [facility] MCV 95 80 - 100 fL 12/23/2023 1:04 PM CDT [facility] Blood BLOOD SPECIMEN / Unknown Venipuncture / Unknown 12/23/2023 1:02 PM CDT 12/23/2023 1:02 PM CDT Wilfred Horton MD HEMATOLOGY Performing Organization Address [facility]/ZIP Co de Phone Number [facility] [address] [place] [address], [place] [phone] * COMPLETE PULMONARY FUNCTION TEST WITH BRONCHODILATOR (12/23/2023 1:00 PM CDT) Narrative [facility] - 12/23/2023 1:00 PM CDT Wilfred Horton MD ? 12/24/2023 11:57 AM Pulmonary Function Testing Interpretation: Effort: Good effort with reproducible results. Spirometry and Flow Volume Loop: Moderate airflow obstruction. No significant response to bronchodilator inhalation. ??This does not preclude clinical benefit. Lung Volumes: Normal total lung capacity. Diffusing Capacity: Moderate reduction in diffusing capacity. Conclusion: Moderate airflow obstruction with a moderate reduction in diffusing capacity. Wilfred Horton MD ?? Pulmonary Medicine and Critical Care [facility] Wilfred Horton MD PFT ORD Performing Organization Address [facility] Co de Phone Number [facility] [place], [place] * (ABNORMAL) LIPID PANEL (10/26/2023 4:18 PM CDT) [facility] CHOLESTEROL,TOTAL 108 100 - 199 mg/dL 10/26/2023 5:54 PM CDT [facility] Comment: Cholesterol, Total Reference Ranges Desirable <200 mg/dL Borderline 200-239 mg/dL High >=240 mg/dL TRIGLYCERIDES 65 <150 mg/dL 10/26/2023 5:54 PM CDT [facility] HDL CHOLESTEROL 40(L) >40 mg/dL 5:54 PM CDT [facility] NON-HDL CHOLESTEROL 68 <145 mg/dl 10/26/2023 5:54 PM CDT [facility] CHOL/HDL RATIO 2.70 <4.50 10/26/2023 5:54 PM CDT [facility] LDL CHOLESTEROL 55 <=130 mg/dL 10/26/2023 5:54 PM CDT [facility] VLDL CHOLESTEROL 13 <=30 mg/dL 10/26/19 24 5:54 PM CDT [facility] Blood BLOOD SPECIMEN / Unknown Venipuncture / Unknown 10/26/2023 4:18 PM CDT 10/26/2023 4:51 PM CDT Obi Ruiz MD CHEMISTRY [facility] [address] [place] [address], * XR MAMMO MARIO BILAT SCREEN (09/16/2023 3:48 PM BACKBREAKER) Anatomical Region Laterality Modality BREASTS, Breast Left, Breast Right Bilateral Mammography Impressions 09/20/2023 1:44 PM BACKBREAKER ??There is no radiographic evidence for malignancy. ??Recommend annual mammograms. MAMMOGRAM ASSESSMENT: ??ACR 1 Negative PATIENTS: You will also receive a letter with your examination results in an easy to read format. ??If you have questions about your results, please contact your referring provider. Narrative 09/20/2023 1:44 PM BACKBREAKER For Patients: As a result of the Century Cures Act, medical imaging exams and procedure reports are released immediately into your electronic medical record. You may view this report before your referring provider. If you have questions, please contact your health care provider. XR MAMMO MARIO BILAT SCREEN [[id number]] CLINICAL HISTORY: ??This is an asymptomatic 63 y.o. patient. INDICATION FOR EXAM: Mammogram Screening. TECHNIQUE: CC & MLO views were obtained. ??This study was evaluated with the assistance of Computer-Aided Detection. Breast Tomosynthesis was used in interpretation. COMPARISON FILM: Yes 06/14/18 [facility] 05/27/16 [facility] FINDINGS: ??The breasts have scattered areas of fibroglandular density. There are no dominant masses, suspicious micro calcifications or areas of architectural distortion. Zoey Watters MD MAMMO * COLONOSCOPY (11/04/2021 1:42 PM CDT) 11/04/2021 1:42 PM CDT Narrative Transcriptions Mg Martins MD - 11/04/2021 2:25 PM CDT Patient Name: Antonieta Alejandre Procedure Date: 11/04/2021 Gender: Female Date of : 1960 Admit Type: Outpatient Procedure: Colonoscopy Proceduralist: Mg Martins MD , Lucina Deal, RN(Nurse) Referring MD: Zoey Watters Indications/Pre-Op Diagnosis: Screening for colorectal malignant neoplasm, Last colonoscopy: September 2011 Medications: Fentanyl 200 micrograms IV, Midazolam 2 mgIV, The level of sedation administered wasmoderate Procedure Description: The patient had risks, benefits and alternatives explained to andgave informed consent. The patient had a stable cardiopulmonary status and judged an adequate candidate for conscious sedation. The [id number] was passed through the anus and advanced [...] 1:42 PM Procedure Code(s): --- Professional --- 28988, Colonoscopy, flexible; with removalof tumor(s), polyp(s), or other lesion(s) bysnare technique Diagnosis Code(s): --- Professional --- Z12.11, Encounter for screening formalignant neoplasm of colon K62.1, Rectal polyp CPT copyright 2020 [employer]. All rights reserved. The codes documented in this report are preliminary and upon flight communications specialist reviewmay be revised to meet current compliance requirements. Scope In: 1:58:22 PM Scope Withdrawal Time 0 hours 8 minutes 16 seconds Scope Out: 2:16:54 PM Mg Martins MD PROCEDURE ORD * HPV HIGH RISK (10/02/2021 4:27 PM CDT) TYPE 16 Negative Negative 10/08/2021 11:18 AM CDT [facility] TYPE 18 Negative Negative 10/08/2021 11:18 AM CDT [facility] OTHER HIGH RISK TYPES Negative Negative 10/08/2021 11:18 AM CDT [facility] Other (Cervical) Non-Blood / Unknown 10/02/2021 4:27 PM CDT 10/06/2021 8:55 AM CDT Narrative [facility] - 10/08/2021 11:18 AM CDT HPV types 16, 18, 31, 33, 35, 39, 45, 51, 52, 56, 58, 59, 66 and 68 DNA were undetectable or below the pre-set threshold. Methodology: Lizbet Rubi 4800 HPV Test Zoey Watters MD MICROBIOLOGY [facility] [address] [place] [address], [place] * OCCULT BLOOD IFOBT STOOL (04/25/2019 2:00 PM CDT) STOOL BLOOD ,IFOBT Negative Negative 04/25/2019 3:17 PM CDT [facility] Stool STOOL SPECIMEN / Unknown Non-Blood / Unknown 04/25/2019 2:00 PM CDT 04/25/2019 3:04 PM CDT [facility] [address] [place] [address], [place] [phone] * ANTI HIV 1/2 (04/04/2013 12:19 PM CDT) ANTI HIV 1/2 Non-reacti ve [facility] Blood specimen (specimen) BLOOD SPECIMEN / Unknown 04/04/2013 12:19 PM CDT 04/04/2013 12:14 PM CDT Evangelina Gil OUTSIDE DEALER SALES REPRESENTATIVE SEND OUTS [facility] INTERNAL ZIP [id number] [place] [address] * ANTI HCV (11/24/2007 1:30 PM CDT) ANTI HCV Non-reacti ve [facility] Blood specimen (specimen) BLOOD SPECIMEN / Unknown 11/24/2007 1:30 PM CDT 11/24/2007 1:24 PM CDT Giovanni Blakely MD SEND OUTS [facility] [place]NAL ZIP [id number] [address] from Last 3 Months or Most Recently Relevant to Health Maintenance Advance Directives * Full Code (Latest Code Status on File) Date Activated Date Inactivated Comments 10/26/2023 2:20 PM 10/29/2023 2:29 PM Question Answer Comments Code Status Discussion: [...] 10:05 AM 11/23/2011 5:38 PM Care Teams Associate Medical Director Relationship Specialty Start Date End Date Zoey Watters MD [address] [place] [address] PCP - General Family Practice 02/06/21 [facility] Psychology 06/02/16 Charissa Lebron CNS Clinical Nurse Specialist 06/02/16
== END 2024-03-20 09:04 | disposition home or self-care (01) ==
PROVIDERS: Emergency Provider Internal Medicine; PCP Family Medicine
DX: J44.1 Chronic obstructive pulmonary disease with (acute) exacerbation (principal)
CPT/HCPCS: 71046; 99283; 99284

== ENCOUNTER 2024-05-22 13:18 | Emergency (ER) | payer BC, SELFPAY ==
[2024-05-22 13:26] VITALS: BP 127/78; PULSE 82; RESP 16; TEMP 36.8; O2SAT 92; BMI 24.5
--- OUTSIDE RECORDS SUMMARY | 2024-05-22 13:50 | XMS_ITS | Clinical Summary ---
Author Organization [facility] Address [place], [place] [address] Care Team Providers Care Clinical Practice Consultant Name Role Phone Gypsy Avitia LP Unavailable [phone] Charissa Lebron [facility] Unavailable Unavaila Zoey Salinas MD Primary Care [...] daily with a meal. 0 5 Active blood sugar diagnostic (Contour Next Test Strips) stripIndications:Type 2 diabetes mellitus without complication, without long-term current use of insulin (HC) USE WITH METER TO TEST BLOOD GLUCOSE ONCE A DAY 100 Each 3 2 Active NebulizerIndications: COPD exacerbation (HC) Nebulizer, disposable neb kit x 4, reuseable neb kit x 1, mask x 1, filters x 1. Frequency of use: daily; Medication: duoneb Length of need: 12 months 1 Each 3 Active CRANBERRY ORAL Take 1 Capsule by mouth once daily. Active nitroglycerin (NITROSTAT) 0.4 mg sublingual tabletIndications:NST [place] (non-ST elevated myocardial infarction) (HC) Place 1 Tablet (0.4 mg) under the tongue every 5 minutes if needed for Chest Pain. SIT DOWN prior to taking this medication. 22 Tablet 3 Active budesonide-formoteroL (Symbicort) 80-4.5 mcg/actuation (80-4.5 mcg each actuation) inhalerIndications:Ch ronic obstructive pulmonary disease, unspecified COPD type (HC) Inhale 2 Puffs by mouth two times daily. 10.2 g 11 3 Active tiotropium bromide (Spiriva Respimat) 2.5 mcg/actuation mist for inhalationIndications :Chronic obstructive pulmonary disease, unspecified COPD type (HC) Inhale 2 Puffs by mouth once daily. 1 Each 3 Active EPINEPHrine (EPIPEN) 0.3 mg/0.3 mL auto-injectorIndicati ons:Bee allergy status INJECT 0.3 MG (1 PEN) INTRAMUSCULARLY EACH TIME IF NEEDED FOR ALLERGIC REACTION 2 Each 4 Active EPINEPHrine (EPIPEN) 0.3 mg/0.3 mL auto-injectorIndicati ons:Bee allergy status Inject 0.3 mg (1 Pen) intramuscular each time if needed for Allergic Reaction. 2 Each 3 4 Active ARIPiprazole (ABILIFY) 5 mg tabletIndications:Mod erate episode of recurrent major depressive disorder (HC) TAKE ONE TABLET BY MOUTH EVERY MORNING 100 Tablet 3 4 Active erythromycin ophthalmic ointment 0.5%Indications:Lesio n of eyelid Apply 1 Strip to both eyes 6 times daily. 3.5 g 4 Active atorvastatin (LIPITOR) 80 mg tabletIndications:NST [place] (non-ST elevated myocardial infarction) (HC) Take 1 Tablet (80 mg) by mouth at bedtime. 100 Tablet 3 4 Active cetirizine (Allergy Relief, cetirizine,) 10 mg tabletIndications:All ergic rhinitis due to pollen, unspecified seasonality Take 1 Tablet (10 mg) by mouth once daily. 100 Tablet 3 4 Active DULoxetine (CYMBALTA) 60 mg Delayed-release capsuleIndications:Mo derate episode of recurrent major depressive disorder (HC) Take 2 Capsules (120 mg) by mouth once daily. 200 Capsule 3 4 Active fenofibrate nanocrystallized (TRICOR) 145 mg tabletIndications:Hyp ertriglyceridemia Take 1 Tablet (145 mg) by mouth once daily with a meal. 100 Tablet 3 4 Active metFORMIN (GLUCOPHAGE) 500 mg tabletIndications:Typ e 2 diabetes mellitus without complication, without long-term current use of insulin (HC) Take 2 Tablets (1,000 mg) by mouth two times daily with meals. 400 Tablet 3 4 Active metoprolol succinate (TOPROL XL) 50 mg sustained-release tabletIndications:Ess ential hypertension Take 1 Tablet (50 mg) by mouth once daily. 100 Tablet 3 4 Active albuterol-ipratropium (DUONEB) (2.5-0.5 mg) in 3 mL NEBULIZATION solutionIndications:C OPD, moderate (HC) Inhale 3 mL via a nebulizer 4 times daily if needed for Shortness Of Breath or Wheezing. 90 mL 3 4 Active acyclovir (ZOVIRAX) 5 % ointmentIndications:H erpes simplex virus (HSV) infection Apply topically to affected area(s) 6 times daily for 7 days as needed for HSV outbreak 30 g 3 4 Active albuterol HFA (Ventolin HFA) 90 mcg/actuation inhalerIndications:Ch ronic obstructive pulmonary disease, unspecified COPD type (HC) Inhale 1-2 Puffs by mouth every 4 hours if needed for Shortness Of Breath or Wheezing. 18 g 11 4 Active Active Problems Problem Noted Date Diagnosed Date Type 2 diabetes mellitus wit h other specified complication, without long-term current use of insulin 11/06/2023 CAD (coronary artery disease) 10/26/2023 NSTEMI (non-ST elevated myocardial infarction) 0 02/28/2023 Overview (03/08/2023): 02/28/23 ANW. Troponin elevation in context of COPD exacerbation. Angiogram showed chronic total occlusion of RCA with collaterals. No intervention performed. Favor medical management with imdur. Severe recurrent major depre ssion without psychotic features 10/02/2021 COPD, moderate 08/20/2018 Overview (08/20/2018): Per pulmonary consult 04/2018, started on spiriva. 08/2018 switched to Incruse Ellipta due to insurance Generalized anxiety disorder 12/07/2017 Moderate episode of recurrent major depressive d isorder 10/28/2017 Gastric reflux 06/08/2017 Essential hypertension 10/15/2016 HUMZA III (vulvar intraepithelial neoplasia III) 0 03/18/2012 Colon polyp 09/23/2011 Overview (09/23/2011): Colonoscopy 09/2011 polyp repeat in 5 years Toxic effect of venom of bees 02/25/2011 Urinary, incontinence, stress female 02/25/2011 Vitamin D deficiency 05/14/2010 Allergic rhinitis due to pollen 09/24/2006 Overview (09/24/2006): environmental allergies Herpes simplex without mention of complication 0 09/24/2006 Other and unspecified hyperlipidemia 09/24/2006 Overview (09/24/2006): hypertriglyceremia Posttraumatic stress disorder Pap smear for cervical cancer screening Overview (11/11/2021): 09/2021 NIL/HPV negative. Plan: Pap/HPV due 09/2026 [...] disorder, not elsewhere classified 09/25/19 07 05/18/2007 Overview (09/24/2006): counsels with Gypsy Sadi/ Farzad Conklin Restless legs syndrome (RLS) 09/24/2006 02/25/2021 Depressive disorder, not elsewhere classified 09/25/19 07 08/30/2018 Overview (08/30/2018): counsels with Gypsy Sadi/ Farzad Conklin Major depressive disorder, r ecurrent episode, moderate 04/14/2011 Encounters Date Type Department Care Team Description 05/22/2024 Nurse Triage [facility] [address] [place] [address] Zoey Watters MD Throat Problem 05/11/2024 2:30 PM CDT Nurse/Clinic Staff Only [address] [address] Immunization/Injecti on 05/11/2024 Travel 04/04/[address] [address] Zoey Watters MD Refill Request (Ventolin Hfa) 03/20/2024 Orders Only [facility] Scanner 1 scan: (1-Ord) VANESSA, XR CHEST 2V, 03/20/2024 03/07/2024 Refill [facility] [address] [place] [address] Zoey Watters MD Refill Request (Albuterol) 03/06/[address] [address] Zoey Watters MD Refill Request (Ventolin) 03/01/2024 2:45 PM CDT Office Visit [address] [address] Zoey Watters MD Physical (64 Year Old Old female) 02/29/2024 Travel 02/22/2024 2:10 PM CDT Office Visit [address] [address] Shirlene Preston PA Eye Problem 02/22/2024 Travel 02/21/2024 Nurse Triage [facility] [address] [place] [address] Zoey Watters MD Eye Problem 02/21/2024 Telephone [facility] [address] [place] [address] Zoey Watters MD Questions (stye in her eyes) from Last 3 Months Immunizations Name Administration Dates Next Due AMB Influenza, IIV4 PF (=>6 mos Flulaval,Fluzone Fluarix)(Flu Clinic Only) 05/20/2017 COVID-19 VACCINE SPIKEVAX (M ODERNA 50MCG/0.5ML) 12YO+ PFS 05/11/2024,05/18/2023 COVID-19 vaccine (Pfizer-Bio NTech 30mcg/0.3mL) 12YO+ BIVALENT PF, MDV 05/22/2022 COVID-19 vaccine (Pfizer-Bio NTech 30mcg/0.3mL) 12YO+ MIGEL-SUCROSE PF, MDV 12/08/2021 COVID-19 vaccine (Pfizer-Bio NTech 30mcg/0.3mL) PF, MDV 10/22/2020,10/01/2020 INFLUENZA, IIV3 PF (AGE >= 6 MO) 05/11/2024 Influenza, IIV3 (Age >=3 years) 04/04/20 13,03/18/2012,07/02/2008,06/20 [...] st Contact Info) Description 06/22/2024 2:30 PM FOUNDER AND CHIEF TECHNICAL OFFICER Office Visit [facility] [address] [place] [address] Wilfred Horton MD [facility] [address] [address] 06/30/2024 [facility]iac Device [facility] [phone] Health Maintenance Due Date Last Done Comments BMI (ht and wt on same day) [...] Completed 04/04/2013, , 11/24/2007, Additional history exists Tdap Completed 07/30/2022, 03/18/2012 Zoster (shingles) series for age 50+ Completed 07/30/2022, 10/02/2021 Pneumococcal series for age 6-64 Completed 02/06/20 23, 10/02/2021 COVID-19 vaccine series Completed 05/11/20, 05/18/2023, 05/22/2022, Additional history exists Influenza for age 50-64 Completed 05/11/20 24, 05/18/2023, 07/30/2022, Additional history exists Procedures Procedure Name Priority Date/Time Associated Diagnosis Comments SCAN-RADIOLOGY REPORT 03/20/2024 12:00 AM CDT URINE ALBUMIN TO CREATININE RATIO, RANDOM Routine 03/01/2024 2:52 PM CDT Type 2 diabetes mellitus without complication, without long-term current use of insulin (HC) HEMOGLOBIN A1C MONITORING (POCT) Routine 03/01/2024 2:46 PM CDT Type 2 diabetes mellitus without complication, without long-term current use of insulin (HC) PACER NORA DUAL CHAMBER WO REPROG Routine 02/29/2024 2:59 PM CDT Fitting or adjustment of cardiac pacemaker LIPID PANEL MARILYN 10/26/2023 4:18 PM CDT XR MAMMO MARIO BILAT SCREEN Routine 09/16/2023 3:48 PM FOUNDER AND CHIEF TECHNICAL OFFICER Visit for screening mammogram COLONOSCOPY SCREENING Routine 11/04/2021 1:22 PM CDT Screening for colon cancer HPV HIGH RISK Routine 10/02/2021 4:27 PM CDT Encounter for gynecological examination without abnormal finding ANTI HIV 1/2 Routine 04/04/2013 12:19 PM CDT Routine screening for STI (sexually transmitted infection) ANTI HCV Routine 11/24/2007 1:30 PM CDT Laceration Of Finger from Last 3 Months or Most Recently Relevant to Health Maintenance Results * SCAN-RADIOLOGY REPORT (03/20/2024 12:00 AM CDT) Anatomical Region Laterality Modality Other Scanner OTHER * URINE ALBUMIN TO CREATININE RATIO, RANDOM (03/01/2024 2:52 PM CDT) ALB RAND URINE <12.0 mg/L 03/02/2024 5:27 PM CDT [facility] CREATININE,URINE 0.33 g/L 03/02/20 24 5:27 PM CDT [facility] ALBUMIN TO CREATININE RATIO,RAND UR 03/02/2024 5:27 PM CDT [facility] Comment:Urine Albumin below measurement range, unable to calculate. Urine URINE SPECIMEN / Unknown Non-Blood / Unknown 03/01/2024 2:52 PM CDT 03/01/2024 2:52 PM CDT Narrative [facility] - 03/02/2024 5:27 PM CDT If Albumin to Creatinine Ratio is elevated, consider the following: ? Elevations seen with incipient nephropathy associated ?? with diabetes mellitus or hypertension. Stress, exercise,hematuria, ?? and urinary tract infection may also produce elevated results. If clinically indicated, confirm with ?24 Hour Albumin to Creatinine Ratio. ?? Zoey Watters MD URINE [facility] [address] [place] [address], * HEMOGLOBIN A1C MONITORING (POCT) (03/01/2024 2:46 PM CDT) [facility] HEMOGLOBIN A1C MONITORING (POCT) 6.0 <=6.4 % 03/01/2024 3:03 PM CDT [facility] Blood BLOOD SPECIMEN / Unknown Venipuncture / Unknown 03/01/2024 2:46 PM CDT 03/01/2024 2:51 PM CDT Narrative [facility] - 03/01/2024 3:03 PM CDT ? [...] Anemias, Splenectomy ? Zoey Watters MD CHEMISTRY [facility] [address] [place] [address], * (ABNORMAL) LIPID PANEL (10/26/2023 4:18 PM CDT) [facility] CHOLESTEROL,TOTAL 108 100 - 199 mg/dL 10/26/2023 5:54 PM CDT [facility] Comment: Cholesterol, Total Reference Ranges Desirable <200 mg/dL Borderline 200-239 mg/dL High >=240 mg/dL TRIGLYCERIDES 65 <150 mg/dL 10/26/2023 5:54 PM CDT [facility] HDL CHOLESTEROL 40(L) >40 mg/dL 5:54 PM CDT [facility] NON-HDL CHOLESTEROL 68 <145 mg/dl 10/26/2023 5:54 PM CDT [facility] CHOL/HDL RATIO 2.70 <4.50 10/26/2023 5:54 PM CDT [facility] LDL CHOLESTEROL 55 <=130 mg/dL 10/26/2023 5:54 PM CDT [facility] VLDL CHOLESTEROL 13 <=30 mg/dL 10/26/19 24 5:54 PM CDT [facility] Blood BLOOD SPECIMEN / Unknown Venipuncture / Unknown 10/26/2023 4:18 PM CDT 10/26/2023 4:51 PM CDT Obi Ruiz MD CHEMISTRY [facility] [address] [place] [address], [place] * XR MAMMO MARIO BILAT SCREEN (09/16/2023 3:48 PM FOUNDER AND CHIEF TECHNICAL OFFICER) Anatomical Region Laterality Modality BREASTS, Breast Left, Breast Right Bilateral Mammography Impressions 09/20/2023 1:44 PM FOUNDER AND CHIEF TECHNICAL OFFICER ??There is no radiographic evidence for malignancy. ??Recommend annual mammograms. MAMMOGRAM ASSESSMENT: ??ACR 1 Negative PATIENTS: You will also receive a letter with your examination results in an easy to read format. ??If you have questions about your results, please contact your referring provider. Narrative 09/20/2023 1:44 PM FOUNDER AND CHIEF TECHNICAL OFFICER For Patients: As a result of the Century Cures Act, medical imaging exams and procedure reports are released immediately into your electronic medical record. You may view this report before your referring provider. If you have questions, please contact your health care provider. XR MAMMO MARIO BILAT SCREEN [[id number]] CLINICAL HISTORY: ??This is an asymptomatic 63 y.o. patient. INDICATION FOR EXAM: Mammogram Screening. TECHNIQUE: CC & MLO views were obtained. ??This study was evaluated with the assistance of Computer-Aided Detection. Breast Tomosynthesis was used in interpretation. COMPARISON FILM: Yes 06/14/18 [facility] 05[facility]16 [facility] FINDINGS: ??The breasts have scattered areas [...] adequate candidate for conscious sedation. The [id number] was passed through the anus and advanced [...] 1:42 PM Procedure Code(s): --- Professional --- 42029, Colonoscopy, flexible; with removalof tumor(s), polyp(s), or other lesion(s) bysnare technique Diagnosis Code(s): --- Professional --- Z12.11, Encounter for screening formalignant neoplasm of colon K62.1, Rectal polyp CPT copyright 2020 [employer]. All rights reserved. The codes documented in this report are preliminary and upon death surveys coder reviewmay be revised to meet current compliance requirements. Scope In: 1:58:22 PM Scope Withdrawal Time 0 hours 8 minutes 16 seconds Scope Out: 2:16:54 PM Mg Martins MD PROCEDURE ORD * HPV HIGH RISK (10/02/2021 4:27 PM CDT) TYPE 16 Negative Negative 10/08/2021 11:18 AM CDT [facility] TYPE 18 Negative Negative 10/08/2021 11:18 AM CDT [facility] OTHER HIGH RISK TYPES Negative Negative 10/08/2021 11:18 AM CDT [facility] Other (Cervical) Non-Blood / Unknown 10/02/2021 4:27 PM CDT 10/06/2021 8:55 AM CDT Narrative [facility] - 10/08/2021 11:18 AM CDT HPV types 16, 18, 31, 33, 35, 39, 45, 51, 52, 56, 58, 59, 66 and 68 DNA were undetectable or below the pre-set threshold. Methodology: Lizbet Rubi 4800 HPV Test Zoey Watters MD MICROBIOLOGY [facility] [address] [place] [address], * ANTI HIV 1/2 (04/04/2013 12:19 PM CDT) Pathologist [facility] ANTI HIV 1/2 Non-reacti [facility] Blood specimen (specimen) BLOOD SPECIMEN / Unknown 04/04/2013 12:19 PM CDT 04/04/2013 12:14 PM CDT Evangelina Gil APPLIED COMPUTER SCIENCE PROFESSOR [employer] INTERNAL ZIP [id number] [place] [address] * ANTI HCV (11/24/2007 1:30 PM CDT) Pathologist [facility] ANTI HCV Non-reacti ve [facility] Blood specimen (specimen) BLOOD SPECIMEN / Unknown 11/24/2007 1:30 PM CDT 11/24/2007 1:24 PM CDT Giovanni Blakely MD [facility] INTERNAL ZIP [id number] [address] from Last 3 Months or Most Recently [...] 10:05 AM 11/23/2011 5:38 PM Care Teams Clinical Practice Consultant Relationship Specialty Start Date End Date Zoey Watters MD [address] [place] [address] PCP - General Family Practice 02/06/21 Gypsy Avitia LP Psychology 06/02/16 Charissa Lebron CNS Clinical Nurse Specialist 06/02/16
[2024-05-22 13:53] LABS: Strep A DNA Probe* NOT DETECTED (Not Detectd)
--- NOTE | 2024-05-22 14:04 | ED_ITS ---
HPI - General Adult General Date Seen: 05/22/24 Chief complaint: Sore Throat Stated complaint: Strep throat Time Seen by Provider: 05/22/24 13:18 Source: patient Mode of arrival: ambulatory Limitations: no limitations History of Present Illness HPI narrative: Patient is a 64-year-old female presenting to emergency department for sore throat. States symptoms have been gone for the past couple days. Denies symptoms like this before. States it is painful to swallow but she is not having any difficulty managing her secretions or breathing. She does have COPD and uses oral steroid inhalers. She no some white stuff in her mouth and is concerned she has strep throat. Has not noticed any swelling underneath her tongue but does feel like some of her lymph nodes are swollen. Denies fevers, chills, sick contacts, weakness, numbness, chest pain, lightheadedness, dizziness. No other concerns noted at this time. Related Data Home Medications ?Medication ?Instructions ?Recorded ?Confirmed acyclovir 5 % topical ointment 1 applic topical 02/27/23 albuterol sulfate 90 mcg/actuation 1 puff inhalation Q4H PRN 02/27/23 03/20/24 aerosol inhaler (Ventolin HFA) aripiprazole 5 mg tablet 5 mg PO DAILY 02/27/23 03/20/24 atorvastatin 20 mg tablet 20 mg PO DAILY 02/27/23 03/20/24 duloxetine 60 mg capsule,delayed 60 mg PO DAILY 02/27/23 03/20/24 release epinephrine 0.3 mg/0.3 mL 0.3 mg IM ONCE PRN 02/27/23 10/26/23 injection, auto-injector fenofibrate nanocrystallized 145 145 mg PO DAILY 02/27/23 03/20/24 mg tablet ipratropium 0.5 mg-albuterol 3 mg 3 ml inhalation Q4H PRN 02/27/23 03/20/24 (2.5 mg base)/3 mL nebulization soln metformin 500 mg tablet 1,000 mg PO BID 02/27/23 03/20/24 metoprolol succinate 50 mg 50 mg PO DAILY 02/27/23 03/20/24 tablet,extended release 24 hr tiotropium 2.5 mcg-olodaterol 2.5 2 puff inhalation DAILY 02/27/23 10/26/23 mcg/actuation mist for inhalation (Stiolto Respimat) valacyclovir 500 mg tablet 500 mg PO Q12H PRN 02/27/23 03/20/24 budesonide-formoterol HFA 80 1 inh inhalation 10/26/23 mcg-4.5 mcg/actuation aerosol inhaler (Symbicort) nystatin 100,000 unit/mL oral PO 10/26/23 suspension tiotropium bromide 2.5 2 puff inhalation DAILY 10/26/23 03/20/24 mcg/actuation mist for inhalation (Spiriva Respimat) cetirizine 10 mg tablet (Allergy 10 mg PO DAILY 03/20/24 03/20/24 Relief (cetirizine)) Allergies Allergy/AdvReac Type Severity Reaction Status Date / Time bupropion (From Wellbutrin) Allergy Intermediate Verified 05/22/24 13:29 Latex, Natural Rubber Allergy Intermediate Verified 05/22/24 13:29 venom-wasp Allergy Verified 05/22/24 13:30 Review of Systems Status of ROS: Reports: 10 or more systems reviewed and unremarkable except as noted in History and below PFSH PFS Social History Smoking Status: Former smoker Do you use any of these nicotine containing products: None How often do you have a drink containing alcohol: monthly or less AUDIT-C Alcohol total score: 1 Non-prescribed substance use: marijuana (any form) service: No Exam Narrative: Exam Narrative: Const: Well-nourished, Well-developed, in no distress Eyes: PERRL, no conjunctival injection, and symmetrical lids HENT: Atraumatic external nose and ears. Moist mucous membranes. White curd- like appearing plaques on the tongue. No tonsillar exudates or swelling, uvula midline, no swelling noted underneath the tongue Neck: Symmetric, trachea midline, No thyromegaly. MSK:Extremities w/o deformity, Normal Active ROM Skin: Warm, Dry. No rashes or lesions. Neuro: Normal Muscle tone, No focal neurological deficits. Psych: Awake, Alert, & Oriented x3. Appropriate mood and affect. Const: Vital Signs, click to edit/add: Vital Signs - 24 hr 05/22/24 13:26 Temperature 98.3 F Pulse Rate [Left P ulse Oximeter] 82 Respiratory Rate 16 Blood Pressure [Ri ght Upper Arm] 127/78 Pulse Oximetry 92 Oxygen Delivery Me thod Room Air Course Vital Signs Vital signs: Initial Vital Signs Temperature 98.3 F 05/22/24 13:26 Temperature Source Temporal Artery Scan 05/22/24 13:26 Pulse Rate 82 05/22/24 13:26 Respiratory Rate 16 05/22/24 13:26 Blood Pressure 127/78 05/22/24 13:26 Blood Pressure Mean 94 05/22/24 13:26 Blood Pressure Position Sitting 05/22/24 13:26 Pulse Oximetry 92 05/22/24 13:26 Oxygen Delivery Method Room Air 05/22/24 13:26 Vital Signs Temperature 98.3 F 05/22/24 13:26 Pulse Rate 82 05/22/24 13:26 Respiratory Rate 16 05/22/24 13:26 Blood Pressure 127/78 05/22/24 13:26 Pulse Oximetry 92 05/22/24 13:26 Oxygen Delivery Method Room Air 05/22/24 13:26 Temperature 98.3 F 05/22/24 13:26 Pulse Rate 82 05/22/24 13:26 Respiratory Rate 16 05/22/24 13:26 Blood Pressure 127/78 05/22/24 13:26 Pulse Oximetry 92 05/22/24 13:26 Oxygen Delivery Method Room Air 05/22/24 13:26 Medical Decision Making MDM Narrative Medical decision making narrative: Patient is a 64-year-old female presenting for sore throat. Patient is not showing signs of peritonsillar abscess, Newton angina, retropharyngeal abscess,Lemierre disease or any other concerning oral pharynx or deep neck space abscesses. Imaging is not necessary. At this time appears like she has oral candidiasis. This is likely from her steroids. She is strep throat negative. She does states she has a standing order for nystatin to take if she develops this. States she was just give this prescription 9 months ago and has never needed to use it. Considering she already has a prescription I do not think I need to send her another 1. She agrees with this plan. I did ask to make sure she switches her mouth with water after she uses are steroids and she does states she does this. Lab Data Labs: Lab Results 05/22/24 Range/Units 13:23 Group A Strep DNA NOT DETECTED (Not Detectd) Discharge Plan Discharge Clinical Impression: Oral thrush Instructions: Oral Candidiasis (ED) Additional Instructions: I believe your symptoms are from an oral fungal infection from the steroids to use. Make sure to take the previously prescribed nystatin as directed. Return for new or worsening symptoms such as inability to handle your normal secretions, difficulty breathing or any other concerning symptoms Prescriptions: No Action metformin 500 mg tablet 1,000 mg PO BID atorvastatin 20 mg tablet 20 mg PO DAILY ipratropium-albuterol 0.5 mg-3 mg(2.5 mg base)/3 mL solution for nebulization 3 ml INHALATION Q4H PRN Patient Comments: [NO ORIGINAL SIG] metoprolol succinate 50 mg tablet extended release 24 hr 50 mg PO DAILY valacyclovir 500 mg tablet 500 mg PO Q12H PRN acyclovir 5 % ointment 1 applic topical epinephrine 0.3 mg/0.3 mL auto-injector 0.3 mg IM ONCE PRN albuterol sulfate [Ventolin HFA] 90 mcg/actuation HFA aerosol inhaler 1 puff inhalation Q4H PRN aripiprazole 5 mg tablet 5 mg PO DAILY duloxetine 60 mg capsule,delayed release(DR/EC) 60 mg PO DAILY fenofibrate nanocrystallized 145 mg tablet 145 mg PO DAILY Stiolto Respimat 2.5-2.5 mcg/actuation mist 2 puff inhalation DAILY nystatin 100,000 unit/mL suspension PO budesonide-formoterol [Symbicort] 80-4.5 mcg/actuation HFA aerosol inhaler 1 inh inhalation Spiriva Respimat 2.5 mcg/actuation mist 2 puff inhalation DAILY cetirizine [Allergy Relief (cetirizine)] 10 mg tablet 10 mg PO DAILY Follow Up/Referrals: Zoey Watters MD [Primary Care Provider] - Stand Alone Forms: [employer] Info Instructions
== END 2024-05-22 14:20 | disposition home or self-care (01) ==
PROVIDERS: Emergency Provider Student in an Organized Health Care Education/Training Program; PCP Family Medicine
DX: B37.0 Candidal stomatitis (principal)
CPT/HCPCS: 87651; 99282; 99283

== ENCOUNTER 2024-07-14 11:37 | Outpatient (CLI) | payer BC, SELFPAY | END 2024-07-14 11:38 | disposition home or self-care (01) | LOC: AMB 07-16 10:50 | PROVIDERS: PCP Family Medicine; Visit Provider Family Medicine | DX: R06.09 Other forms of dyspnea (principal); R53.1 Weakness | CPT/HCPCS: A0998 ==

== ENCOUNTER 2024-08-21 04:28 | Outpatient (CLI) | payer BC, SELFPAY | END 2024-08-21 04:29 | disposition home or self-care (01) | LOC: AMB 08-29 06:47 | PROVIDERS: PCP Family Medicine; Visit Provider Family Medicine | DX: R06.09 Other forms of dyspnea (principal) | CPT/HCPCS: A0425; A0427 ==

== ENCOUNTER 2024-08-21 05:14 | Inpatient (IN) | payer BC, SELFPAY ==
[2024-08-21] VITALS (22 sets, daily range): BP systolic 104–164; BP diastolic 53–111; PULSE 92–108; RESP 16–42; TEMP 36–36.3; O2SAT 90–96; BMI 24.5
--- OUTSIDE RECORDS SUMMARY | 2024-08-21 05:16 | XMS_ITS | Clinical Summary ---
Author Organization [facility] Address [place], [place] [address] Care Team Providers Care Installation Drafter Name Role Phone Gypsy Avitia LP Unavailable Natacha Lebronorangoc Montano [facility] Unavailable Unavaila Zoey Salinas MD Primary Care Provider Allergies Active Allergy Reactions Criticality Noted Date Comments Bupropion Agitation High 09/24/2006 Latex Hives High 11/23/2011 Welts Venom-Yellow Jacket Other - Describe In Comment Field Unknown 04/25/2015 Arm swelling Medications DOCOSAHEXANOIC ACID/EPA (FISH OIL ORAL) Take 1,000 mg by mouth once daily. Active MULTIVITAMIN ORAL Take 1 Tablet by mouth once daily. Active aspirin (ECOTRIN) 81 mg enteric coated tablet Take 1 tablet by mouth once daily with a meal. 0 015 Active blood sugar diagnostic (Contour Next Test Strips) stripIndications:Ty pe 2 diabetes mellitus without complication, without long-term current use of insulin (HC) USE WITH METER TO TEST BLOOD GLUCOSE ONCE A DAY 100 Each 3 022 Active NebulizerIndication s:COPD exacerbation (HC) Nebulizer, disposable neb kit x 4, reuseable neb kit x 1, mask x 1, filters x 1. Frequency of use: daily; Medication: duoneb Length of need: 12 months 1 Each 023 Active CRANBERRY ORAL Take 1 Capsule by mouth once daily. Active nitroglycerin (NITROSTAT) 0.4 mg sublingual tabletIndications:N STEMI (non-ST elevated myocardial infarction) (HC) Place 1 Tablet (0.4 mg) under the tongue every 5 minutes if needed for Chest Pain. SIT DOWN prior to taking this medication. 22 Tablet 3 4:50 PM CDT Active EPINEPHrine (EPIPEN) 0.3 mg/0.3 mL auto-injectorIndica tions:Bee allergy status INJECT 0.3 MG (1 PEN) INTRAMUSCULARLY EACH TIME IF NEEDED FOR ALLERGIC REACTION 2 Each 024 Active EPINEPHrine (EPIPEN) 0.3 mg/0.3 mL auto-injectorIndica tions:Bee allergy status Inject 0.3 mg (1 Pen) intramuscular each time if needed for Allergic Reaction. 2 Each 3 024 Active ARIPiprazole (ABILIFY) 5 mg tabletIndications:M oderate episode of recurrent major depressive disorder (HC) TAKE ONE TABLET BY MOUTH EVERY MORNING 100 Tablet 3 024 Active atorvastatin (LIPITOR) 80 mg tabletIndications:N STEMI (non-ST elevated myocardial infarction) (HC) Take 1 Tablet (80 mg) by mouth at bedtime. 100 Tablet 3 024 Active cetirizine (Allergy Relief, cetirizine,) 10 mg tabletIndications:A llergic rhinitis due to pollen, unspecified seasonality Take 1 Tablet (10 mg) by mouth once daily. 100 Tablet 3 024 Active DULoxetine (CYMBALTA) 60 mg Delayed-release capsuleIndications: Moderate episode of recurrent major depressive disorder (HC) Take 2 Capsules (120 mg) by mouth once daily. 200 Capsule 3 024 Active fenofibrate nanocrystallized (TRICOR) 145 mg tabletIndications:H ypertriglyceridemia Take 1 Tablet (145 mg) by mouth once daily with a meal. 100 Tablet 3 024 Active metFORMIN (GLUCOPHAGE) 500 mg tabletIndications:T ype 2 diabetes mellitus without complication, without long-term current use of insulin (HC) Take 2 Tablets (1,000 mg) by mouth two times daily with meals. 400 Tablet 3 024 Active metoprolol succinate (TOPROL XL) 50 mg sustained-release tabletIndications:E ssential hypertension Take 1 Tablet (50 mg) by mouth once daily. 100 Tablet 3 024 Active acyclovir (ZOVIRAX) 5 % ointmentIndications :Herpes simplex virus (HSV) infection Apply topically to affected area(s) 6 times daily for 7 days as needed for HSV outbreak 30 g 3 024 Active budesonide-formoter oL (Symbicort) 80-4.5 mcg/actuation (80-4.5 mcg each actuation) inhalerIndications: Chronic obstructive pulmonary disease, unspecified COPD type (HC) Inhale 2 Puffs by mouth two times daily. 10.2 g 11 024 Active tiotropium bromide (Spiriva Respimat) 2.5 mcg/actuation mist for inhalationIndicatio ns:Chronic obstructive pulmonary disease, unspecified COPD type (HC) Inhale 2 Puffs by mouth once daily. 1 Each 11 024 Active tiotropium-olodater oL (STIOLTO RESPIMAT) 2.5-2.5 mcg/actuation inhalerIndications: Chronic obstructive pulmonary disease, unspecified COPD type (HC) Inhale 2 Puffs by mouth once daily. 4 g 3 024 Active albuterol HFA (Ventolin HFA) 90 mcg/actuation inhalerIndications: Chronic obstructive pulmonary disease, unspecified COPD type (HC) Inhale 1-2 Puffs by mouth every 4 hours if needed for Shortness Of Breath or Wheezing. 18 g 11 024 Active albuterol-ipratropi um (DUONEB) (2.5-0.5 mg) in 3 mL NEBULIZATION solutionIndications :COPD, moderate (HC) Inhale 3 mL via a nebulizer every 6 hours if needed for Shortness Of Breath. 180 mL 11 024 Active nystatin (MYCOSTATIN) 100,000 unit/mL suspensionIndicatio ns:Thrush SWISH AND SWALLOW 5ML (500,000 UNITS) BY MOUTH FOUR TIMES DAILY. 473 mL 024 Active predniSONE (DELTASONE) 20 mg tabletIndications:C OPD exacerbation (HC) TAKE TWO TABLETS BY MOUTH EVERY DAY FOR 5 DAYS 10 Tablet 025 Active budesonide-glycopyr -formoterol (Breztri Aerosphere) 160-9-4.8 mcg/actuation HFAAIndications:Chr onic obstructive pulmonary disease, unspecified COPD type (HC) Inhale 2 Puffs by mouth two times daily. 10.7 g 11 025 Active predniSONE (DELTASONE) 20 mg tabletIndications:C hronic obstructive pulmonary disease, unspecified COPD type (HC) Take 2 Tablets (40 mg) by mouth once daily. 10 Tablet 025 Active fluticasone xae-oytweasrfceq-zx lanterol (Trelegy Ellipta) 100-62.5-25 mcg inhalerIndications: Chronic obstructive pulmonary disease, unspecified COPD type (HC) Inhale 1 Puff by mouth once daily. 3 Each 3 025 Active Active Problems Problem Noted Date Diagnosed [...] 07 08/30/2018 Overview (08/30/2018): counsels with Gypsy Avitia/ Farzad Picken Major depressive disorder, r ecurrent episode, moderate 04/14/2011 Encounters Date Type Department Care Team Description 08/20/2024 Refill [facility] [address] [place] [phone] Wilfred Horton MD Refill Request (Prednisone) 08/18/2024 Telephone [facility] [address] [place] [phone] Wilfred Horton MD Medication Management (needs prior auth) 08/07/2024 Telephone [facility] [address] [place] [phone] Wilfred Horton MD Prior Authorization (njevhrrbtv-rkfeepfx-l ormoterol (Breztri Aerosphere) 160-9-4.8 mcg/actuation HFAA (DENIED)) 07/27/2024 Telephone [facility] [address] [place] [phone] Wilfred Horton MD Medication Management 07/16/[address] [facility] [address] [place] [address] Zoey Watters MD Refill Request (Prednisone) 07/10/[address] [facility] [address] [place] [address] Zoey Watters MD Refill Request (Nystatin) 07/06/[address] [facility] [address] [place] [address] Wilfred Horton MD Questions (Instructions for new medication ) 06/28/2024 10:25 AM SHUTTLE FINAL INSPECTOR Office Visit [facility] [address] [place] [address] Zoey Watters MD COPD (Went to Pulmonology on wednesday and they referred to come in ) 06/28/2024 Travel 06/26/[address] [facility] [address] [place] [address] Zoey Watters MD Concerns (BRONCHITIS AND COPD) 06/23/2024 Telephone [facility] [address] [place] [phone] Wilfred Horton MD Medication Management (Inhaler clarity) 06/22/2024 2:30 PM SHUTTLE FINAL INSPECTOR Office Visit [facility] [address] [place] [address] Wilfred Horton MD Follow Up (COPD) 06/22/2024 Travel 06/16/[address] [facility] [address] [place] [address] Zoey Watters MD Refill Request (Albuterol-ipratropium ) 06/13/2024 1:45 PM SHUTTLE FINAL INSPECTOR Office Visit [facility] [address] [place] [address] Shirlene Preston PA Throat Problem 06/13/2024 Travel 06/12/[address] [facility] [address] [place] [address] Zoey Watters MD Questions (LOST VOICE) 06/12/[address] [facility] [address] [place] [address] Zoey Watters MD Refill Request (Symbicort, Spiriva Respimat) 06/09/[address] [facility] [address] [place] [address] Zoey Watters MD Refill Request (Spiriva Respimat) 06/06/2024 Refill [facility] [address] [facility] [address] [place] [phone] Wilfred Horton MD Refill Request (budesonide-formoteroL (Symbicort) 80-4.5 mcg/actuation (80-4.5 mcg each actuation) inhaler, Spiriva) 05/30/2024 Telephone [facility] [address] [facility] [address] [place] [address] Grabiel Mendieta MD Appointment ([place]) 05/22/[address] [facility] [address] [place] [address] Zoey Watters MD Throat Problem from Last 3 Months Immunizations Name Administration [...] 2 03/01/2024 Social Connections Answer Date Recorded Do you often feel lonely or isolated from those around you? 0 06/13/2024 Financial Resource Strain Answer Date R ecorded Difficulty of Paying Living Expenses 2 06/13/2024 Difficulty of Paying Living Expenses 1 06/13/2024 Food Insecurity Answer Date Recorded Do you worry your food will run out before you are able to buy more? 1 06/13/2024 Transportation Needs Answer Date Record ed Does lack of transportation keep you from medica l appointments? 1 06/13/2024 Does lack of transportation keep you from work, meetings or getting things that you need? 1 06/13/2024 Housing Stability Answer Date Recorded What is your housing situation today? 1 06/13/2024 Utilities Answer Date Recorded Do you have trouble paying f or utilities (for example, heat, electricity, water, phone)? 2 06/13/2024 Comments No Sex and Gender Information Value Date Recorded Sex Assigned at Not on file Legal Sex Female 5:42 AM SHUTTLE FINAL INSPECTOR Gender Identity Not on file Sexual Orientation Not on file Obstetrics History Para Term AB IAB SAB Ectopic Multiple Livin g Live Births 2 2 Date Outcome GA Total Labor Labor/2nd/3rd Weight Sex Type Anes PTL Marleny A1 A5 Name Clin Last Filed Vital Signs Vital Sign Reading Time Taken Comments Blood Pressure 123/79 06/28/2024 10:49 AM SHUTTLE FINAL INSPECTOR Pulse 79 06/28/2024 10:49 AM SHUTTLE FINAL INSPECTOR Temperature 36.8 C (98.2 F) 06/28/2024 10:49 AM SHUTTLE FINAL INSPECTOR Respiratory Rate 16 06/22/2024 2:27 PM SHUTTLE FINAL INSPECTOR Oxygen Saturation 93% 06/28/2024 10:49 AM SHUTTLE FINAL INSPECTOR Inhaled Oxygen Concentration - - Weight 61.4 kg (135 lb 6.4 oz) 06/28/2024 10:49 AM SHUTTLE FINAL INSPECTOR Height 157.2 cm (5' 1.9) 06/22/2024 2:27 PM SHUTTLE FINAL INSPECTOR Body Mass Index 24.85 06/22/2024 2:27 PM SHUTTLE FINAL INSPECTOR Plan of Treatment Upcoming Encounters Date Type Department Care Team (Late st Contact Info) Description 08/29/2024 2:00 PM SHUTTLE FINAL INSPECTOR Ancillary Procedure [facility] [address] [place] [address] 10/27/2024 Cardiac Device Check [facility] [phone] Health Maintenance Due Date Last Done Comments Depression screening for age 12+ 03/01/2025 03/01/2024, 03/18/2023, 09/20/2022, Additional history exists BMI (ht and wt on same day) for age 18+ 06/22/2025 06/22/2024, 03/01/2024, 12/01/2023, Additional history exists Mammogram for age 45-75 09/15/2025 09/16/19 24, 06/14/2018, 05/27/2016, Additional history exists Pap test for age 21-65 10/02/2026 , 10/02/2021, 06/22/2018, Additional history exists Lipids for age 45-75 10/25/2028 10/26/2023, 03/01/2023, 02/05/2023, Additional history exists Colonoscopy through age 75 11/05/203111/04, 11/04/2021, 11/04/2021, Additional history exists Tetanus booster 07/30/2032 07/30/2022, 08/3 07/2011, 12/05/2002 Hepatitis C screening for ag e 18-79 Completed 11/24/2007, 09/07/2007, 07/26/2007 HIV for age 15-65 Completed 04/04/2013, , 11/24/2007, Additional history exists Tdap Completed 07/30/2022, 03/18/2012 Zoster (shingles) series for age 50+ Completed 07/30/2022, 10/02/2021 Pneumococcal series for age 50+ Completed , 10/02/2021 RSV vaccine for adults or Completed 06/23/2023 COVID-19 vaccine series Completed 05/11/20, 05/18/2023, 05/22/2022, Additional history exists Influenza for age 50-64 Completed 05/11/20, 05/18/2023, 07/30/2022, Additional history exists Procedures Procedure Name Priority Date/Time Associated Diagnosis Comments LIPID PANEL MARILYN 10/26/2023 4:18 PM CDT XR MAMMO MARIO BILAT SCREEN Routine 09/16/2023 3:48 PM SHUTTLE FINAL INSPECTOR Visit for screening mammogram COLONOSCOPY SCREENING Routine [...] Relevant to Health Maintenance Results * (ABNORMAL) LIPID PANEL (10/26/2023 4:18 PM CDT) CHOLESTEROL,TOTAL 108 100 - 199 mg/dL 10/26/2023 5:54 PM CDT [facility] [employer] Comment: Cholesterol, Total Reference Ranges Desirable <200 mg/dL Borderline 200-239 mg/dL High >=240 mg/dL TRIGLYCERIDES 65 <150 mg/dL 10/26/2023 5:54 PM CDT [facility] HDL CHOLESTEROL 40(L) >40 mg/dL 5:54 PM CDT [facility] NON-HDL CHOLESTEROL 68 <145 mg/dl 10/26/2023 5:54 PM CDT [facility] CHOL/HDL RATIO 2.70 <4.50 10/26/2023 5:54 PM CDT [facility] LDL CHOLESTEROL 55 <=130 mg/dL 10/26/2023 5:54 PM CDT [facility] VLDL CHOLESTEROL 13 <=30 mg/dL 10/26/19 5:54 PM CDT [facility] Blood BLOOD SPECIMEN / Unknown Venipuncture / Unknown 10/26/2023 4:18 PM CDT 10/26/2023 4:51 PM CDT us Obi Ruiz MD CHEMISTRY Final Resul t [facility] [address] [place] [address], [place] * XR MAMMO MARIO BILAT SCREEN (09/16/2023 3:48 PM SHUTTLE FINAL INSPECTOR) Anatomical Region Laterality Modality BREASTS, Breast Left, Breast Right Bilateral Mammography Impressions 09/20/2023 1:44 PM SHUTTLE FINAL INSPECTOR There is no radiographic evidence for malignancy. Recommend annual mammograms. MAMMOGRAM ASSESSMENT: ACR 1 Negative PATIENTS: You will also receive a letter with your examination results in an easy to read format. If you have questions about your results, please contact your referring provider. Narrative 09/20/2023 1:44 PM SHUTTLE FINAL INSPECTOR For Patients: As a result of the 21st Century Cures Act, medical imaging exams and procedure reports are released immediately into your electronic medical record. You may view this report before your referring provider. If you have questions, please contact your health care provider. XR MAMMO MARIO BILAT SCREEN [[id number]] CLINICAL HISTORY: This is an asymptomatic 63 y.o. patient. INDICATION FOR EXAM: Mammogram Screening. TECHNIQUE: CC & MLO views were obtained. This study was evaluated with the assistance of Computer-Aided Detection. Breast Tomosynthesis was used in interpretation. COMPARISON FILM: Yes 06/14/18 [facility] 05/27/16 [facility] FINDINGS: The breasts have scattered areas of fibroglandular density. There are no dominant masses, suspicious micro calcifications or areas of architectural distortion. us Zoey Watters MD MAMMO Final Resul t * COLONOSCOPY (11/04/2021 1:42 PM CDT) 11/04/2021 [...] an adequate candidate for conscious sedation. The [id number] [id number] was passed through the anus and advanced [...] 1:42 PM Procedure Code(s): --- Professional --- 38771, Colonoscopy, flexible; with removalof tumor(s), polyp(s), or other lesion(s) bysnare technique Diagnosis Code(s): --- Professional --- Z12.11, Encounter for screening formalignant neoplasm of colon K62.1, Rectal polyp CPT copyright 2020 [employer]. All rights reserved. The codes documented in this report are preliminary and upon urban anthropologist reviewmay be revised to meet current compliance requirements. Scope In: 1:58:22 PM Scope Withdrawal Time 0 hours 8 minutes 16 seconds Scope Out: 2:16:54 PM us Mg Martins MD PROCEDURE ORD Final Res ult * HPV HIGH RISK (10/02/2021 4:27 PM CDT) TYPE 16 Negative Negative 10/08/2021 11:18 AM CDT [facility] TYPE 18 Negative Negative 10/08/2021 11:18 AM CDT [facility] OTHER HIGH RISK TYPES Negative Negative 10/08/2021 11:18 AM CDT [facility] Other (Cervical) Non-Blood / Unknown 10/02/2021 4:27 PM CDT 10/06/2021 8:55 AM CDT Narrative [facility] - 10/08/2021 11:18 AM CDT HPV types 16, 18, 31, 33, 35, 39, 45, 51, 52, 56, 58, 59, 66 and 68 DNA were undetectable or below the pre-set threshold. Methodology: Lizbet Rubi 4800 HPV Test us Zoey Watters MD MICROBIOLOGY Final Resul t [facility] [address] [place] [address], * ANTI HIV 1/2 (04/04/2013 12:19 PM CDT) ANTI HIV 1/2 Non-reacti ve [facility] Blood specimen (specimen) BLOOD SPECIMEN / Unknown 04/04/2013 12:19 PM CDT 04/04/2013 12:14 PM CDT us Evangelina Gil AQUACULTURIST SEND OUTS F inal Result [facility] [place]NAL ZIP [id number] [place] [address] * ANTI HCV (11/24/2007 1:30 PM CDT) ANTI HCV Non-reacti ve [facility] Blood specimen (specimen) BLOOD SPECIMEN / Unknown 11/24/2007 1:30 PM CDT 11/24/2007 1:24 PM CDT us Giovanni Blakely MD SEND OUTS Final Result [facility] [place]NAL ZIP [address] [place] [phone] from Last 3 Months or Most Recently Relevant to Health Maintenance Insurance [id number] [place] [id number] [facility] [id number] [place] [id number] [employer] [id number] [id number] Advance Directives * Full Code (Latest Code [...] 10:05 AM 11/23/2011 5:38 PM Care Teams Installation Drafter Relationship Specialty Start Date End Date Zoey Watters MD [address] [place] [address] PCP - General Family Practice 02/06/21 Gypsy Avitia LP Psychology 06/02/16 Charissa Lebron CNS Clinical Nurse Specialist 06/02/16
--- NOTE | 2024-08-21 05:27 | ED_ITS ---
HPI - General Adult General Chief complaint: Shortness of Breath/Dyspnea Stated complaint: SOB Time Seen by Provider: 08/21/24 05:17 History of Present Illness HPI narrative: Pt woke up with SOB @0230. Called EMS at 0430. Pt O2 62% . Increased to 98 % with NRB. Pt changed to BiPAP. Meds via EMS: Duo Neb, 1 mg of Ativan, 0.3 epi. Blood sugar 238 IV RAC 20 gauge 64-year-old woman presenting to the emergency department following abrupt onset of shortness of breath about 2-1/2 hours prior to arrival here this administrative resident. Sats were noted at 62% and was placed on non-rebreather and then to BiPAP. Received DuoNeb, 1 mg of Ativan and 0.3 mg of epinephrine via EMS. She reports baseline oxygen is usually 93%. Is not experiencing any chest pain. I see her initially on an OxyMask satting 97%. Reports feeling much better at the moment. Most recently this department with oral thrush - this was May of 2024. Seen also for non-STEMI in October of 2023. She says she did not receive a stent but instead a pacemaker. She says the blood vessel was too blocked. I do not have recent echocardiogram but she denies heart failure. Says she used to be on chronic steroids. She would like to be back on them but now they are not covered she says. Only occasionally exposed to smoke now she says. She herself does no longer smoke. When asked about triggers she mentions that her mother just . Related Data Home Medications ?Medication ?Instructions ?Recorded ?Confirmed acyclovir 5 % topical ointment 1 applic topical 02/27/23 albuterol sulfate 90 mcg/actuation 1 puff inhalation Q4H PRN 02/27/23 03/20/24 aerosol inhaler (Ventolin HFA) aripiprazole 5 mg tablet 5 mg PO DAILY 02/27/23 03/20/24 atorvastatin 20 mg tablet 20 mg PO DAILY 02/27/23 03/20/24 duloxetine 60 mg capsule,delayed 60 mg PO DAILY 02/27/23 03/20/24 release epinephrine 0.3 mg/0.3 mL 0.3 mg IM ONCE PRN 02/27/23 10/26/23 injection, auto-injector fenofibrate nanocrystallized 145 145 mg PO DAILY 02/27/23 03/20/24 mg tablet ipratropium 0.5 mg-albuterol 3 mg 3 ml inhalation Q4H PRN 02/27/23 03/20/24 (2.5 mg base)/3 mL nebulization soln metformin 500 mg tablet 1,000 mg PO BID 02/27/23 03/20/24 metoprolol succinate 50 mg 50 mg PO DAILY 02/27/23 03/20/24 tablet,extended release 24 hr tiotropium 2.5 mcg-olodaterol 2.5 2 puff inhalation DAILY 02/27/23 10/26/23 mcg/actuation mist for inhalation (Stiolto Respimat) valacyclovir 500 mg tablet 500 mg PO Q12H PRN 02/27/23 03/20/24 budesonide-formoterol HFA 80 1 inh inhalation 10/26/23 mcg-4.5 mcg/actuation aerosol inhaler (Symbicort) nystatin 100,000 unit/mL oral PO 10/26/23 suspension tiotropium bromide 2.5 2 puff inhalation DAILY 10/26/23 03/20/24 mcg/actuation mist for inhalation (Spiriva Respimat) cetirizine 10 mg tablet (Allergy 10 mg PO DAILY 03/20/24 03/20/24 Relief (cetirizine)) Allergies Allergy/AdvReac Type Severity Reaction Status Date / Time bupropion (From Wellbutrin) Allergy Intermediate Verified 05/22/24 13:29 Latex, Natural Rubber Allergy Intermediate Verified 05/22/24 13:29 venom-wasp Allergy Verified 05/22/24 13:30 Review of Systems Status of ROS: Reports: 6 or more systems reviewed and unremarkable except as noted in History and below [facility] Social History Smoking Status: Former smoker Do you use any of these nicotine containing products: None How often do you have a drink containing alcohol: monthly or less AUDIT-C Alcohol total score: 1 Non-prescribed substance use: marijuana (any form) service: No Exam Narrative: Exam Narrative: Oxy mask is noted. Calm. Labored but not particularly rapid breathing. She is able to converse. Maybe a little sleepy noting that she had received Ativan from EMS. Alerts quickly though to conversation. Breath sounds are quite diminished generally. She has very trace end-expiratory wheeze mostly in the right upper chest/back. Heart is in an elevated rate but regular rhythm. There maybe a slight murmur. Extremities are without edema. She is well-perfused. Abdomen is soft nontender Const: Vital Signs, click to edit/add: Vital Signs - 24 hr 08/21/24 05:18 08/21/24 05:30 08/21/24 05:33 Temperature 96.8 F L Pulse Rate [Right Pulse Oximeter] 108 H 106 H 104 H Respiratory Rate 24 42 H 22 Blood Pressure [Le ft Upper Arm] 126/84 128/101 H 128/101 H Pulse Oximetry 96 96 95 Oxygen Delivery Me thod OxyMask High Flow Nasal Ca nnula OxyMask 08/21/24 06:05 08/21/24 06:07 08/21/24 06:20 Temperature Pulse Rate [Right Pulse Oximeter] 102 H 102 H 104 H Respiratory Rate 42 H 22 22 Blood Pressure [Le ft Upper Arm] 121/53 L 121/53 L 104/80 Pulse Oximetry 96 93 94 Oxygen Delivery Me thod High Flow Nasal Ca nnula OxyMask OxyMask 08/21/24 06:20 08/21/24 06:40 Temperature Pulse Rate [Right Pulse Oximeter] 105 H 103 H Respiratory Rate 42 H 30 H Blood Pressure [Le ft Upper Arm] 104/80 114/95 H Pulse Oximetry 93 95 Oxygen Delivery Me thod High Flow Nasal Ca nnula OxyMask Documenting provider has reviewed patient's vital signs: yes Course Vital Signs Vital signs: Initial Vital Signs Respiratory Effort Labored, Short of Breath 08/21/24 05:17 Respiratory Depth Shallow 08/21/24 05:17 Respiratory Pattern Tachypnea 08/21/24 05:17 Vital Signs Temperature 96.8 F L 08/21/24 05:18 Pulse Rate 108 H 08/21/24 05:18 Respiratory Rate 24 08/21/24 05:18 Blood Pressure 126/84 08/21/24 05:18 Pulse Oximetry 96 08/21/24 05:18 Oxygen Delivery Method OxyMask 08/21/24 05:18 Temperature 96.8 F L 08/21/24 05:18 Pulse Rate 103 H 08/21/24 06:40 Respiratory Rate 30 H 08/21/24 06:40 Blood Pressure 114/95 H 08/21/24 06:40 Pulse Oximetry 95 08/21/24 06:40 Oxygen Delivery Method OxyMask 08/21/24 06:40 Medications Administered Medications: Discontinued Medications Generic Name Dose Route Start Last Admin Trade Name Hemalatha PRN Reason Stop Dose Admin Albuterol 2.5 mg 08/21/24 05:49 08/21/24 05:55 Albuterol Sulfate 2.5 Mg/3 Ml Vial.[facility] 08/21/24 05:50 2.5 mg ONCE ONE Administration Albuterol 2.5 mg 08/21/24 08:46 08/21/24 08:59 Albuterol Sulfate 2.5 Mg/3 Ml Vial.[facility] 08/21/24 08:47 2.5 mg ONCE ONE Administration Albuterol/Ipratropium 1 [facility] 08/21/24 08:56 08/21/24 08:59 Iprat-Albut 0.5-2.5 Mg/3 Ml [facility] 08/21/24 08:57 1 neb ONCE ONE Administration Methylprednisolone Sodium Succinate 93.75 mg 08/21/24 05:50 08/21/24 05:55 Methylprednisolone Sod Succ 62.5 Mg/Ml (125) IVP 08/21/24 05:51 93.75 mg ONCE ONE Administration Morphine Sulfate 2 mg 08/21/24 08:29 08/21/24 08:36 Morphine 2 Mg/Ml Inj IVP 08/21/24 08:30 2 mg ONCE ONE Administration Medical Decision Making MDM Narrative Medical decision making narrative: Would presume that to have a COPD exacerbation. Will of for sources of infection trigger particular influenza a in this community. Chest x-ray looking for pneumonia. Continue to provide cautious oxygen support but initially decrease oxygen to support usual baseline. Check cardiac labs Nursing turned OxyMask back up as satting 89-90% only. Sedated I think somewhat from the transport [facility]. Chest x-ray independently reviewed by me shows cardiac pacer, no cardiomegaly, no apparent infiltrate. Repeat albuterol nebulization. Re auscultation with much better air movement and mild diffuse expiratory wheeze. Labs showing mild acidosis, mild CO2 retention. Continues to nod off again I think not because of CO2 but because of lorazepam. She does report feeling continue improvement. Rechecking venous blood gases after about an hour and half of time here. Blood gases look a little improved. She is still labored in breathing. Will try to wean oxygen again. Moving to nasal cannula On reassessment nursing notes is still quite uncomfortable. She still labored in her breathing and tachypneic. Nursing requesting 2 mg of morphine. I think is not turning the corner very quickly here. Requesting admission. Respiratory therapy is consulting now. Have re-dosed DuoNeb and albuterol nebs. Have discussed with hospitalist for admission. Medical Records Medical records reviewed: Yes I reviewed the patient's medical records Lab Data Lab results reviewed: Yes I reviewed the patient's lab results Labs: Lab Results 08/21/24 08/21/24 08/21/24 Range/Units 05:20 05:33 06:03 WBC 10.20 (4.50-11.00) K/uL RBC 4.13 (4.00-5.20) m/uL Hgb 12.5 (12.0-16.0) gm/dL Hct 39.6 (33.0-51.0) % MCV 96 (80-100) fL MCH 30 (26-34) pg MCHC 32 (32-36) gm/dL RDW Coeff of Debby 12.7 (11.5-15.5) % Plt Count 226 (140-440) K/uL Neut % (Auto) 64.4 (42.0-72.0) % Lymph % (Auto) 23.7 (20-44) % [place] % (Auto) 6.1 (0.0-11.0) % Eos % (Auto) 4.2 (0.0-7.0) % Baso % (Auto) 0.5 (0.0-3.0) % Neut # (Auto) 6.57 (1.7-7.0) K/uL Lymph # (Auto) 2.42 (0.90-2.90) K/uL [place] # (Auto) 0.60 (0.00-0.90) K/UL Eos # (Auto) 0.43 (0.00-0.50) K/uL Baso # (Auto) 0.05 (0.00-0.30) K/uL Abs Immat Gran (auto) 0.11 (0.00-0.30) K/uL Imm/Tot Granulo (auto) 1.1 % VBG pH 7.276 L (7.32-7.43) VBG pCO2 53 H (40-50) mmHG VBG pO2 60.9 H (25-47) mmHG VBG HCO3 25 (21-28) mmol/L Sodium 137 (135-149) mmol/L Potassium 4.3 (3.6-5.1) mmol/L Chloride 104 (96-114) mmol/L Carbon Dioxide 23 (20-32) mmol/L Anion Gap 10 (7-15) mEq/L BUN 21 (7-30) mg/dL Creatinine 0.9 (0.5-1.5) mg/dL Estimated Creat Clear 45.54 Estimated GFR 72 ml/min Glucose 179 H (60-115) mg/dL Lactate 2.2 H (0.5-1.9) mmol/L Calcium 8.7 (8.4-10.6) mg/dL Troponin I < 0.01 L (0.01-0.04) ng/mL C-Reactive Protein < 0.5 L (0.5-1.0) mg/dL NT-Pro-B Natriuret Pep 119 pg/mL SARS-CoV-2 (PCR) Negative SARS-CoV-2 (Negative) Influenza Type A (PCR) Negative PCR FLU A (Negative) Influenza Type B (PCR) Negative PCR FLU B (Negative) RSV (PCR) Negative PCR RSV (Negative) Lab Acknowledgement Test Added POC Troponin I 0.00 L (0.01-0.04) ng/ml 08/21/24 Range/Units 07:13 WBC (4.50-11.00) K/uL RBC (4.00-5.20) m/uL Hgb (12.0-16.0) gm/dL Hct (33.0-51.0) % MCV (80-100) fL MCH (26-34) pg MCHC (32-36) gm/dL RDW Coeff of Debby (11.5-15.5) % Plt Count (140-440) K/uL Neut % (Auto) (42.0-72.0) % Lymph % (Auto) (20-44) % [place] % (Auto) (0.0-11.0) % Eos % (Auto) (0.0-7.0) % Baso % (Auto) (0.0-3.0) % Neut # (Auto) (1.7-7.0) K/uL Lymph # (Auto) (0.90-2.90) K/uL [place] # (Auto) (0.00-0.90) K/UL Eos # (Auto) (0.00-0.50) K/uL Baso # (Auto) (0.00-0.30) K/uL Abs Immat Gran (auto) (0.00-0.30) K/uL Imm/Tot Granulo (auto) % VBG pH 7.359 (7.32-7.43) VBG pCO2 46 (40-50) mmHG VBG pO2 74.3 H (25-47) mmHG VBG HCO3 26 (21-28) mmol/L Sodium (135-149) mmol/L Potassium (3.6-5.1) mmol/L Chloride (96-114) mmol/L Carbon Dioxide (20-32) mmol/L Anion Gap (7-15) mEq/L BUN (7-30) mg/dL Creatinine (0.5-1.5) mg/dL Estimated Creat Clear Estimated GFR ml/min Glucose (60-115) mg/dL Lactate (0.5-1.9) mmol/L Calcium (8.4-10.6) mg/dL Troponin I (0.01-0.04) ng/mL C-Reactive Protein (0.5-1.0) mg/dL NT-Pro-B Natriuret Pep pg/mL SARS-CoV-2 (PCR) (Negative) Influenza Type A (PCR) (Negative) Influenza Type B (PCR) (Negative) RSV (PCR) (Negative) Lab Acknowledgement POC Troponin I (0.01-0.04) ng/ml ECG Data Attestation: I personally reviewed and interpreted this ECG as follows: (Sinus tachycardia at 106. There is baseline irritability. I do not appreciate ischemic changes) Discharge Plan Discharge Clinical Impression: COPD exacerbation Patient Disposition: Admitted As Observation Condition: Stable Prescriptions: No Action metformin 500 mg tablet 1,000 mg PO BID atorvastatin 20 mg tablet 20 mg PO DAILY ipratropium-albuterol 0.5 mg-3 mg(2.5 mg base)/3 mL solution for nebulization 3 ml INHALATION Q4H PRN Patient Comments: [NO ORIGINAL SIG] metoprolol succinate 50 mg tablet extended release 24 hr 50 mg PO DAILY valacyclovir 500 mg tablet 500 mg PO Q12H PRN acyclovir 5 % ointment 1 applic topical epinephrine 0.3 mg/0.3 mL auto-injector 0.3 mg IM ONCE PRN albuterol sulfate [Ventolin HFA] 90 mcg/actuation HFA aerosol inhaler 1 puff inhalation Q4H PRN aripiprazole 5 mg tablet 5 mg PO DAILY duloxetine 60 mg capsule,delayed release(DR/EC) 60 mg PO DAILY fenofibrate nanocrystallized 145 mg tablet 145 mg PO DAILY Stiolto Respimat 2.5-2.5 mcg/actuation mist 2 puff inhalation DAILY nystatin 100,000 unit/mL suspension PO budesonide-formoterol [Symbicort] 80-4.5 mcg/actuation HFA aerosol inhaler 1 inh inhalation Spiriva Respimat 2.5 mcg/actuation mist 2 puff inhalation DAILY cetirizine [Allergy Relief (cetirizine)] 10 mg tablet 10 mg PO DAILY Follow Up/Referrals: Zoey Watters MD [Primary Care Provider] -
--- NOTE | 2024-08-21 05:33 | CRLHL7_ITS ---
For Patients: As a result of the Century Cures Act, medical imaging exams and procedure reports are released immediately into your electronic medical record. You may view this report before your referring provider. If you have questions, please contact your health care provider. Indication: : Shortness of breath TECHNIQUE: Single-view chest. FINDINGS: The lungs are clear. The heart, mediastinum and pulmonary vessels are of normal size. There is no evidence of pleural disease. Left cardiac pacer. IMPRESSION: Negative chest. Dictated by Lauren Mcnair MD @ 08/21/2024 6:36:11 AM (Electronically Signed)
--- NOTE | 2024-08-21 05:33 | ED.NURSE ---
Pt changed to Oxymask from EMS BiPAP. O2 sats 97 at 10lpm. Pt changed to 5lpm, sats 95%.
[2024-08-21 05:41] LABS: HCO3 VBG 25 mmol/L (21-28); Lactate* 2.2 mmol/L (0.5-1.9); PCO2 VBG 53 mmHG (40-50); PO2 VBG 60.9 mmHG (25-47); pH VBG 7.276 (7.32-7.43)
[2024-08-21 05:43] LABS: Basophils Absolute Auto 0.05 K/uL (0.00-0.30); Basophils Percent Auto 0.5 % (0.0-3.0); Eosinophils Absolute Auto 0.43 K/uL (0.00-0.50); Eosinophils Percent Auto 4.2 % (0.0-7.0); Hematocrit 39.6 % (33.0-51.0); Hemoglobin* 12.5 gm/dL (12.0-16.0); Immature Granulocytes Abs Auto 0.11 K/uL (0.00-0.30); Immature Granulocytes Pct Auto 1.1 %; Lymphocytes Absolute Auto 2.42 K/uL (0.90-2.90); Lymphocytes Percent Auto 23.7 % (20-44); Mean Corpuscular HGB Conc 32 gm/dL (32-36); Mean Corpuscular Hemoglobin 30 pg (26-34); Mean Corpuscular Volume 96 fL (80-100); Monocytes Percent Auto 6.1 % (0.0-11.0); Neutrophils Absolute Auto 6.57 K/uL (1.7-7.0); Neutrophils Percent Auto 64.4 % (42.0-72.0); Platelet Count* 226 K/uL (140-440); RDW Coefficient of Variation % 12.7 % (11.5-15.5); Red Blood Count 4.13 m/uL (4.00-5.20)
--- OUTSIDE RECORDS SUMMARY | 2024-08-21 05:51 | XMS_ITS | Clinical Summary ---
Author Organization [facility] Address [place], [place] [address] Care Team Providers Care Analytics Specialist Name Role Phone [facility]psy Av[employer] Unavailable [phone] Natacha Lebronorangoc Montano [facility] Unavailable Unavaila Zoey Salinas MD Primary Care [...] once daily. 10 Tablet 025 Active fluticasone izv-dgqtotjzlhrh-dl lanterol (Trelegy Ellipta) 100-62.5-25 mcg inhalerIndications: Chronic [...] Type Department Care Team Description 08/20/2024 Refill [facility] [address] [place] [phone] Wilfred Horton MD Refill Request (Prednisone) 08/18/2024 Telephone [facility] [address] [place] [phone] Wilfred Horton MD Medication Management (needs prior auth) 08/07/2024 Telephone [facility] [address] [place] [phone] Wilfred Horton MD Prior Authorization (txzdszeuul-pzlhzwok-l ormoterol (Breztri Aerosphere) 160-9-4.8 mcg/actuation HFAA (DENIED)) 07/27/2024 Telephone [facility] [address] [place] [phone] Wilfred Horton MD Medication Management 07/16/2024 [facility] [address] [place] [address] Zoey Watters MD Refill Request (Prednisone) 07/10/2024 Refill [facility] [address] [place] [address] Zoey Watters MD Refill Request (Nystatin) 07/06/2024 Telephone [facility] [address] [place] [address] Wilfred Horton MD Questions (Instructions for new medication ) 06/28/2024 10:25 AM [employer] [facility] [address] [place] [address] Zoey Watters MD COPD (Went to Pulmonology on wednesday and they referred to come in ) 06/28/2024 Travel 06/26/2024 Telephone [facility] [address] [place] [address] Zoey Watters MD Concerns (BRONCHITIS AND COPD) 06/23/2024 Telephone [facility] [address] [place] [phone] Wilfred Horton MD Medication Management (Inhaler clarity) 06/22/2024 2:30 PM [employer] Office Visit [facility] [address] [place] [address] Wilfred Horton MD Follow Up (COPD) 06/22/2024 Travel 06/16/2024 [facility]ill [facility] [address] [place] [address] Zoey Watters MD Refill Request (Albuterol-ipratropium ) 06/13/2024 1:45 PM [employer] [facility] [address] [place] [address] Shirlene Preston PA Throat Problem 06/13/2024 Travel 06/12/2024 Telephone [facility] [address] [place] [address] Zoey Watters MD Questions (LOST VOICE) 06/12/2024 Refill [facility] [address] [place] [address] Zoey Watters MD Refill Request (Symbicort, Spiriva Respimat) 06/09/2024 Refill [facility] [address] [place] [address] Zoey Watters MD Refill Request (Spiriva Respimat) 06/06/2024 Refill [facility] [address] [facility] [address] [place] [phone] Wilfred Horton MD Refill Request (budesonide-formoteroL (Symbicort) 80-4.5 mcg/actuation (80-4.5 mcg each actuation) inhaler, Spiriva) 05/30/2024 Telephone [facility] [address] [facility] [address] [place] [address] Grabiel Mendieta MD Appointment ([place]) 05/22/2024 Nurse Triage [facility] [address] [place] [address] Zoey Watters MD Throat Problem from Last [...] on file Legal Sex Female 5:42 AM [employer] Gender Identity Not on file Sexual Orientation Not on file Obstetrics History Para Term AB IAB SAB Ectopic Multiple Livin g Live Births 2 2 Date Outcome GA Total Labor Labor/2nd/3rd Weight Sex Type Anes PTL Marleny A1 A5 Name Clin Last Filed Vital Signs Vital Sign Reading Time Taken Comments Blood Pressure 123/79 06/28/2024 10:49 AM [employer] Pulse 79 06/28/2024 10:49 AM [employer] Temperature 36.8 C (98.2 F) 06/28/2024 10:49 AM [employer] Respiratory Rate 16 06/22/2024 2:27 PM [employer] Oxygen Saturation 93% 06/28/2024 10:49 AM [employer] Inhaled Oxygen Concentration - - Weight 61.4 kg (135 lb 6.4 oz) 06/28/2024 10:49 AM [employer] Height 157.2 cm (5' 1.9) 06/22/2024 2:27 PM [employer] Body Mass Index 24.85 06/22/2024 2:27 PM [employer] Plan of Treatment Upcoming Encounters Date Type Department Care Team (Late st Contact Info) Description 08/29/2024 2:00 PM [employer] Ancillary [facility] [address] [place] [address] 10/27/2024 Cardiac Device [place] [facility] [phone] Health Maintenance Due Date Last Done Comments [...] MARIO BILAT SCREEN Routine 09/16/2023 3:48 PM [employer] Visit for screening mammogram COLONOSCOPY SCREENING Routine [...] - 199 mg/dL 10/26/2023 5:54 PM CDT [facility] [employer] Comment: Cholesterol, Total Reference Ranges Desirable <200 mg/dL Borderline 200-239 mg/dL High >=240 mg/dL TRIGLYCERIDES 65 <150 mg/dL 10/26/2023 5:54 PM CDT [facility] HDL CHOLESTEROL 40(L) >40 mg/dL 5:54 PM CDT [facility] NON-HDL CHOLESTEROL 68 <145 mg/dl 10/26/2023 5:54 PM CDT [facility] CHOL/HDL RATIO 2.70 <4.50 10/26/2023 5:54 PM CDT [facility] LDL CHOLESTEROL 55 <=130 mg/dL 10/26/2023 5:54 PM CDT [facility] VLDL CHOLESTEROL 13 <=30 mg/dL 10/26/19 5:54 PM CDT [facility] Blood BLOOD SPECIMEN / Unknown Venipuncture / Unknown 10/26/2023 4:18 PM CDT 10/26/2023 4:51 PM CDT us Obi Ruiz MD CHEMISTRY Final Resul t [facility] [address] [place] [address], [place] * XR MAMMO MARIO BILAT SCREEN (09/16/2023 3:48 PM [employer]) Anatomical Region Laterality Modality BREASTS, Breast Left, Breast Right Bilateral Mammography Impressions 09/20/2023 1:44 PM [employer] There is no radiographic evidence for malignancy. Recommend annual mammograms. MAMMOGRAM ASSESSMENT: ACR 1 Negative PATIENTS: You will also receive a letter with your examination results in an easy to read format. If you have questions about your results, please contact your referring provider. Narrative 09/20/2023 1:44 PM [employer] For Patients: As a result of the 21st Century Cures Act, medical imaging exams and procedure reports are released immediately into your electronic medical record. You may view this report before your referring provider. If you have questions, please contact your health care provider. XR MAMMO MARIO BILAT SCREEN [[id number]] CLINICAL HISTORY: This is an asymptomatic 63 [...] an adequate candidate for conscious sedation. The [id number] [id number] was passed through the anus and advanced [...] 1:42 PM Procedure Code(s): --- Professional --- 18394, Colonoscopy, flexible; with removalof tumor(s), polyp(s), or other lesion(s) bysnare technique Diagnosis Code(s): --- Professional --- Z12.11, Encounter for screening formalignant neoplasm of colon K62.1, Rectal polyp CPT copyright 2020 [employer]. All rights reserved. The codes documented in this report are preliminary and upon prep cook reviewmay be revised to meet current compliance requirements. Scope In: 1:58:22 PM Scope Withdrawal Time 0 hours 8 minutes 16 seconds Scope Out: 2:16:54 PM us Mg Martins MD PROCEDURE ORD Final Res ult * HPV HIGH RISK (10/02/2021 4:27 PM CDT) TYPE 16 Negative Negative 10/08/2021 11:18 AM CDT [facility] TYPE 18 Negative Negative 10/08/2021 11:18 AM CDT [facility] OTHER HIGH RISK TYPES Negative Negative 10/08/2021 11:18 AM CDT [facility] Other (Cervical) Non-Blood / Unknown 10/02/2021 4:27 PM CDT 10/06/2021 8:55 AM CDT Narrative [facility] - 10/08/2021 11:18 AM CDT HPV types 16, 18, 31, 33, 35, 39, 45, 51, 52, 56, 58, 59, 66 and 68 DNA were undetectable or below the pre-set threshold. Methodology: Lizbet Rubi 4800 HPV Test us Zoey Watters MD MICROBIOLOGY Final Resul t [facility] [address] [place] [address], * ANTI HIV 1/2 (04/04/2013 12:19 PM CDT) ANTI HIV 1/2 Non-reacti ve [facility] Blood specimen (specimen) BLOOD SPECIMEN / Unknown 04/04/2013 12:19 PM CDT 04/04/2013 12:14 PM CDT us Evangelina Gil [employer] SEND OUTS F inal Result [facility] [place]NAL ZIP [id number] [place] [address] * ANTI HCV (11/24/2007 1:30 PM CDT) ANTI HCV Non-reacti ve [facility] Blood specimen (specimen) BLOOD SPECIMEN / Unknown 11/24/2007 1:30 PM CDT 11/24/2007 1:24 PM CDT us Giovanni Blakely MD SEND OUTS Final Result [facility] INTERNAL ZIP [address] [place] [id number] from Last 3 Months or Most Recently Relevant to Health Maintenance Insurance [id number] [place] [id number] COUNTS INCLUDE 234 BEDS AT THE [facility] [id number] [place] [id number] WORK[employer] COMP [id number] [place] [id number] Advance Directives * Full Code (Latest Code [...] 10:05 AM 11/23/2011 5:38 PM Care Teams Analytics Specialist Relationship Specialty Start Date End Date Zoey Watters MD [address] [place] [address] PCP - General Family Practice 02/06/21 Gypsy Avitia LP Psychology 06/02/16 Charissa Lebron CNS Clinical Nurse Specialist 06/02/16
[2024-08-21] MEDS: ALBUTEROL SULFATE 2.5 MG/3 ML VIAL.NEB NEB ×4 (05:55→18:00)
[2024-08-21] MEDS: METHYLPREDNISOLONE SOD SUCC 62.5 MG/ML (125) 93.75 MG IVP (05:55)
[2024-08-21 05:59] LABS: Chloride* 104 mmol/L (96-114)
[2024-08-21 06:00] LABS: Potassium* 4.3 mmol/L (3.6-5.1); Sodium* 137 mmol/L (135-149)
[2024-08-21 06:02] LABS: Creatinine* 0.9 mg/dL (0.5-1.5); Est. Creatinine Clearance* 45.54; Estimated Glomerular Filt Rate 72 ml/min; Slide Review Reflex No
[2024-08-21 06:03] LABS: Anion Gap 10 mEq/L (7-15); Blood Urea Nitrogen* 21 mg/dL (7-30); Calcium* 8.7 mg/dL (8.4-10.6); Carbon Dioxide* 23 mmol/L (20-32); Glucose* 179 mg/dL (60-115)
[2024-08-21 06:20] LABS: PCR FLU A Negative PCR FLU A (Negative); PCR FLU B Negative PCR FLU B (Negative); PCR RSV Negative PCR RSV (Negative); SARS PCR* Negative SARS-CoV-2 (Negative)
--- NOTE | 2024-08-21 06:21 | ED.NURSE ---
pt reports she is breathing easier. Pt remains 94% via oxymask at 5 lpm
[2024-08-21 06:22] LABS: C Reactive Protein* < 0.5 mg/dL (0.5-1.0); Troponin I* < 0.01 ng/mL (0.01-0.04)
[2024-08-21 06:29] LABS: NT Pro B Type NatriureticPept* 119 pg/mL
[2024-08-21 07:18] LABS: HCO3 VBG 26 mmol/L (21-28); PCO2 VBG 46 mmHG (40-50); PO2 VBG 74.3 mmHG (25-47); pH VBG 7.359 (7.32-7.43)
[2024-08-21] MEDS: MORPHINE 2 MG/ML inj IVP (08:36)
[2024-08-21] MEDS: IPRAT-ALBUT 0.5-2.5 MG/3 ML NEB 1 NEB IH ×4 (08:59→18:00)
--- NOTE | 2024-08-21 10:03 | RESP.RT ---
Pt receiving a DuoNeb when I arrived. BBS tight, with poor aeration. On 2L SPO2 92% Per pt she does neb therapy every 6 hours at home. Gave 2 back to back albuterol nebs 2.5mg. BBS improved, to inspiratory and expiratory wheezing with prolonged expiratory phase. Will continue with aggressive neb therapy today. Following Vital signs Pt has harsh congested cough. Will initiate aerobika therapy when BBS improve.
[2024-08-21] MEDS: 0.9 % SODIUM CHLORIDE 1000 ml 1,000 ML IV (11:39)
[2024-08-21] MEDS: AZITHROMYCIN 250 MG TABLET 500 MG PO (12:08)
[2024-08-21 13:44] LABS: Lactate* 1.4 mmol/L (0.5-1.9)
--- NOTE | 2024-08-21 14:10 | P.IMHP_ITS ---
Hospitalist- H&P: HPI History of Present Illness Date Seen: 08/21/24 Chief complaint: SOB Narrative: Antonieta Alejandre is a 64 year old female w/ PMHx of CAD (no PCI), Hx of PM, COPD who presents w/ SOB and was found hypoxic. +ve Cough, not alot of sputum. chills + sweating +ve. No CP or discomfort. At the ED pt was found to be in COPD exacerbation. Was admitted recently [facility]cc 2023 for a similar picture. Pt thinks that her COPD started to be out of control once insurance rejected Trilogy Tx. Lactate 2.2. CXR WNL, Trop -ve, EKG SR, w/out ischemic changes. Review of Systems Status of ROS: Reports: 6 or more systems reviewed and unremarkable except as noted in History and below PFSH [facility] Medical History (Updated 08/21/24 @ 16:07 by Diana Saucedo MD) Depression ?F32.A - Depression, unspecified (ICD-10) CAD (coronary artery disease) ?I25.10 - Atherosclerotic heart disease of [place] coronary artery without angina pectoris (ICD-10) Surgical History (Updated 08/21/24 @ 16:03 by Diana Saucedo MD) History of permanent cardiac pacemaker placement ?Z95.0 - Presence of cardiac pacemaker (ICD-10) Social History What is your current living situation?: I presently have a place to live Problems where you live: no known problems Problems where you live details: N/A In the past 12 months, utilities in danger of being shut off: no In past 12 months, lack of transportation kept you from medical appts, meetings, work, or getting things needed for daily living: no In the past 12 mos, have been you worried that your food would run out before you had money to buy more?: never true In the past 12 mos, the food you bought just didn't last and you didn't have money to buy more?: never true Smoking Status: Former smoker Do you use any of these nicotine containing products: None How often do you have a drink containing alcohol: monthly or less AUDIT-C Alcohol total score: 1 Non-prescribed substance use: marijuana (any form) Caffeine: Yes How often does anyone, including family, friends and others, physically hurt you : never How often does anyone, including family, friends and others, insult or talk down to you: never How often does anyone, including family, friends and others, threaten you with harm: never How often does anyone, including family, friends and others, scream or curse at you: never service: No Meds Home Medications and Allergies Home Medications ?Medication ?Instructions ?Recorded ?Confirmed ?Type albuterol sulfate 90 mcg/actuation 1 - 2 puff inhalation Q4H PRN 02/27/23 08/21/24 History aerosol inhaler (Ventolin HFA) aripiprazole 5 mg tablet 5 mg PO DAILY 02/27/23 08/21/24 History duloxetine 60 mg capsule,delayed 120 mg PO DAILY 02/27/23 08/21/24 History release epinephrine 0.3 mg/0.3 mL 0.3 mg IM ONCE PRN 02/27/23 08/21/24 History injection, auto-injector fenofibrate nanocrystallized 145 145 mg PO DAILY 02/27/23 08/21/24 History mg tablet ipratropium 0.5 mg-albuterol 3 mg 3 ml inhalation Q6H PRN 02/27/23 08/21/24 History (2.5 mg base)/3 mL nebulization soln metformin 500 mg tablet 1,000 mg PO BIDWM 02/27/23 08/21/24 History metoprolol succinate 50 mg 50 mg PO DAILY 02/27/23 08/21/24 History tablet,extended release 24 hr tiotropium 2.5 mcg-olodaterol 2.5 2 puff inhalation DAILY 02/27/23 08/21/24 History mcg/actuation mist for inhalation (Stiolto Respimat) cetirizine 10 mg tablet (Allergy 10 mg PO DAILY 03/20/24 08/21/24 History Relief (cetirizine)) aspirin 81 mg tablet,delayed 81 mg PO DAILY 08/21/24 08/21/24 History release (Adult Aspirin Regimen) atorvastatin 80 mg tablet 80 mg PO HS 08/21/24 08/21/24 History multivitamin (Daily Multi-Vitamin 1 tab PO DAILY 08/21/24 08/21/24 History tablet) nitroglycerin 0.4 mg sublingual 0.4 mg sublingual Q5-15M PRN 08/21/24 08/21/24 History tablet nystatin 100,000 unit/mL oral 5 ml PO QID PRN 08/21/24 08/21/24 History suspension omega 4-lwv-zaw-fish oil 1,000 mg 1 cap PO DAILY 08/21/24 08/21/24 History (120 mg-180 mg) capsule (Fish Oil) Allergies Allergy/AdvReac Type Severity Reaction Status Date / Time bupropion (From Wellbutrin) Allergy Intermediate Verified 05/22/24 13:29 Latex, Natural Rubber Allergy Intermediate Verified 05/22/24 13:29 venom-wasp Allergy Verified 05/22/24 13:30 Exam Narrative: Exam Narrative: Physical exam GENERAL: Comfortable, no acute distress on N/C. HEAD AND NECK: Atraumatic, normocephalic CARDIOVASCULAR: RRR. Normal S1, S2. No murmurs. RESPIRATORY: Diffuse wheezes +ve. GASTROINTESTINAL: Not distended, not tender to palpation. NEUROLOGY: Alert, awake, oriented X 3. Normal speech. PSYCH: Normal mood, normal affect. Const: Vital Signs, click to edit/add: Vital Signs - 24 hr 08/21/24 05:18 08/21/24 05:30 08/21/24 05:33 Temperature 96.8 F L Pulse Rate Pulse Rate [Right Pulse Oximeter] 108 H 106 H 104 H Respiratory Rate 24 42 H 22 Blood Pressure [Le ft Arm] Blood Pressure [Le ft Upper Arm] 126/84 128/101 H 128/101 H Pulse Oximetry 96 96 95 Oxygen Delivery Me thod OxyMask High Flow Nasal Ca nnula OxyMask Oxygen Flow Rate 08/21/24 06:05 08/21/24 06:07 08/21/24 06:20 Temperature Pulse Rate Pulse Rate [Right Pulse Oximeter] 102 H 102 H 104 H Respiratory Rate 42 H 22 22 Blood Pressure [Le ft Arm] Blood Pressure [Le ft Upper Arm] 121/53 L 121/53 L 104/80 Pulse Oximetry 96 93 94 Oxygen Delivery Me thod High Flow Nasal Ca nnula OxyMask OxyMask Oxygen Flow Rate 08/21/24 06:20 08/21/24 06:40 08/21/24 06:40 Temperature Pulse Rate Pulse Rate [Right Pulse Oximeter] 105 H 103 H 104 H Respiratory Rate 42 H 30 H 41 H Blood Pressure [Le ft Arm] Blood Pressure [Le ft Upper Arm] 104/80 114/95 H 114/95 H Pulse Oximetry 93 95 94 Oxygen Delivery Me thod High Flow Nasal Ca nnula OxyMask High Flow Nasal Ca nnula Oxygen Flow Rate 08/21/24 07:00 08/21/24 07:20 08/21/24 07:40 Temperature Pulse Rate Pulse Rate [Right Pulse Oximeter] 101 H 101 H 99 Respiratory Rate 40 H 20 24 Blood Pressure [Le ft Arm] Blood Pressure [Le ft Upper Arm] 145/93 H 118/101 H 125/92 H Pulse Oximetry 93 93 93 Oxygen Delivery Me thod OxyMask OxyMask OxyMask Oxygen Flow Rate 08/21/24 08:00 08/21/24 08:20 08/21/24 08:40 Temperature Pulse Rate Pulse Rate [Right Pulse Oximeter] 101 H 99 100 Respiratory Rate 21 26 H 26 H Blood Pressure [Le ft Arm] Blood Pressure [Le ft Upper Arm] 147/111 H 144/102 H 114/87 Pulse Oximetry 95 92 93 Oxygen Delivery Me thod OxyMask Nasal Cannula Nasal Cannula Oxygen Flow Rate 08/21/24 09:00 08/21/24 09:20 08/21/24 09:40 Temperature Pulse Rate Pulse Rate [Right Pulse Oximeter] 103 H 104 H 108 H Respiratory Rate 21 27 H 28 H Blood Pressure [Le ft Arm] Blood Pressure [Le ft Upper Arm] 127/96 H 122/107 H 121/78 Pulse Oximetry 90 92 Oxygen Delivery Me thod Nasal Cannula Nasal Cannula Nasal Cannula Oxygen Flow Rate 08/21/24 10:23 08/21/24 10:23 08/21/24 11:31 Temperature 96.8 F L Pulse Rate Pulse Rate [Right Pulse Oximeter] Respiratory Rate 24 24 Blood Pressure [Le ft Arm] 109/56 L Blood Pressure [Le ft Upper Arm] Pulse Oximetry 91 91 91 Oxygen Delivery Me thod Nasal Cannula Nasal Cannula Oxygen Flow Rate 2 2 08/21/24 11:32 Temperature Pulse Rate 103 H Pulse Rate [Right Pulse Oximeter] Respiratory Rate Blood Pressure [Le ft Arm] Blood Pressure [Le ft Upper Arm] Pulse Oximetry Oxygen Delivery Me thod Oxygen Flow Rate Hospitalist - H&P: Result Labs Labs: Short CBC 08/21/24 Range/Units 05:20 WBC 10.20 (4.50-11.00) K/uL Hgb 12.5 (12.0-16.0) gm/dL Hct 39.6 (33.0-51.0) % Plt Count 226 (140-440) K/uL BMP 08/21/24 05:20 Sodium 137 Potassium 4.3 Chloride 104 Carbon Dioxide 23 BUN 21 Creatinine 0.9 Glucose 179 H Calcium 8.7 Cardiac Enzymes 08/21/24 Range/Units 05:20 Troponin I < 0.01 L (0.01-0.04) ng/mL ECG Attestation: I personally reviewed and interpreted this ECG as follows: ECG interpretation date: 08/21/24 Interpretation: EKG SR, w/out ischemic changes. Imaging Chest x-ray: Attestation: I have reviewed the pertinent imaging results. Radiologist's impression: [place] [address] Diagnostic Imaging Report Patient: Antonieta Alejandre MR#: [id number] : 1960 Acct:[id number] Loc: ED Service Date: 08/21/[address]: Ordering Physician: Bjorn Durbin M.D. Date of Service: 08/21/24 Procedure(s): XR chest 1V portable Accession Number(s): [id number] cc: Zoey Watters M.D.; Bjorn Durbin M.D.~ For Patients: As a result of the Cures Act, medical imaging exams and procedure reports are released immediately into your electronic medical record. You may view this report before your referring provider. If you have questions, please contact your health care provider. Indication: : Shortness of breath TECHNIQUE: Single-view chest. FINDINGS: The lungs are clear. The heart, mediastinum and pulmonary vessels are of normal size. There is no evidence of pleural disease. Left cardiac pacer. IMPRESSION: Negative chest. Dictated by Lauren Mcnair MD @ 08/21/2024 6:36:11 AM Assessment and Plan Assessment and plan (1) COPD exacerbation: Problem comment: -Start Azithromycin, prednisone, duonebs -O2 NC managment, wean as tolerated. -F/up LA. Status: Acute (2) CAD (coronary artery disease): Problem comment: No PCI done, blockage not amenable to stenting Hx STEMI No CP EKG w/out ischemic changes Trop -ve x2 Status: Acute (3) History of permanent cardiac pacemaker placement: Status: Acute (4) Elevated lactic acid level: Status: Acute (5) Depression: Status: Acute (6) PRECIOUS on CPAP: Status: Suspected Total Time Spent Total Time Spent: Time spent: Today I spent 75 minutes seeing the patient, discussing the patient with ER staff, reviewing Expanse and EPIC notes/diagnostics, discussing the care plan with our care time that includes social work, PT/OT, pharmacy, RT, [facility]iary and documenting my impressions and plan in the medical record.
[2024-08-21 14:59] LABS: Troponin I* < 0.01 ng/mL (0.01-0.04)
[2024-08-21] MEDS: METHYLPREDNISOLONE SOD SUCC 62.5 MG/ML (125) 125 MG IVP (18:06)
[2024-08-21] MEDS: ARIPiprazole 10 MG TABLET 5 MG PO (18:31)
[2024-08-21] MEDS: DULOXETINE 30 MG CAPSULE DR 120 MG PO (18:31)
--- NOTE | 2024-08-21 19:09 | PC.NURSE ---
PATIENT ADMITTED TO MED/SURG AT 1-
--- NOTE | 2024-08-21 19:10 | PC.NURSE ---
PATIENT ADMITTED TO MED/SURG AT 1000. AT THAT TIME PATIENT 90-94%2L O2 PER NC. LUNG SOUNDS WHEEZY POSTERIORLY WITH EXPIRATORY RHONCHI. DENIED PAIN OR N/V. TELE SHOWING NSR TO SINUS TACHYCARDIA. PATIENT DENIED CHEST PAIN BUT REPORTED SOB WITH EXERTION. INTERMITTENT COARSE NON-PRODUCTIVE COUGH. PATIENT ENCOURAGED TO USE AEROBIKA. AFTER LUNCH, PATIENT'S O2 SATS NOTED TO BE 97%2L AND WEANED TO 1L O2 PER NC. O2 SATS REMAINED 95-96%1L SO WEANED TO ROOM AIR AND O2 SATS 90-92%RA. PATIENT ABLE TO NAP AND DENIED DYSPNEA. PATIENT ATE SUPPER AND THEN REPORTED DYSPNEA. NURSE TO PATIENT'S ROOM AND PATIENT NOTED TO BE TACHYPNEIC AND DYSPNEIC. O2 SATS AT THAT TIME 85-86%RA SO O2 REAPPLIED AND SCHEDULED DUONEB ADMINISTERED. MD TO ROOM AND ADDITIONAL PRN ALBUTEROL NEB ORDERED AND ADMINISTERED WELL ORDERED SOLUMEDROL. FOLLOWING MEDICATION ADMINISTRATION PATIENT REPORTED IMPROVED BREATHING AND RR DECREASED. PATIENT DID REPORT INCREASED ANXIETY RELATED TO RECENT OF HER MOTHER. PATIENT SHARED THAT THE IS THIS WEDNESDAY. SHE ALSO REPORTED TO NURSE THAT SHE HAD NOT YET TAKEN HER AM MEDS AND WAS WANTING HER ABILIFY AND DULOXETINE. DISCUSSED WITH MD AND ONE TIME ORDER OBTAINED AND ADMINISTERED FOR THOSE MEDS.
[2024-08-21] MEDS: ENOXAPARIN 40 MG/0.4 ML INJ SUBCUT (20:13)
[2024-08-21] MEDS: SODIUM CHLORIDE 0.9 % (FLUSH) 10 ML SYRINGE 5 ML IVF (20:13)
[2024-08-21] MEDS: ATORVASTATIN CALCIUM 40 MG TABLET 80 MG PO (20:13)
[2024-08-22] VITALS (10 sets, daily range): BP systolic 109–136; BP diastolic 68–80; PULSE 85–101; RESP 18–20; TEMP 36–36.6; O2SAT 80–94
[2024-08-22] MEDS: IPRAT-ALBUT 0.5-2.5 MG/3 ML NEB 1 NEB IH ×4 (00:25→17:46)
[2024-08-22] MEDS: METHYLPREDNISOLONE SOD SUCC 62.5 MG/ML (125) 125 MG IVP (00:26)
[2024-08-22 06:52] LABS: Hematocrit 37.7 % (33.0-51.0); Mean Corpuscular HGB Conc 32 gm/dL (32-36); Mean Corpuscular Hemoglobin 30 pg (26-34); Mean Corpuscular Volume 94 fL (80-100); Platelet Count* 187 K/uL (140-440); Red Blood Count 4.01 m/uL (4.00-5.20); White Blood Count* 6.56 K/uL (4.50-11.00)
[2024-08-22 06:57] LABS: Slide Review Reflex No
[2024-08-22 07:11] LABS: Chloride* 104 mmol/L (96-114); Potassium* 3.8 mmol/L (3.6-5.1); Sodium* 139 mmol/L (135-149)
[2024-08-22 07:14] LABS: Anion Gap 10 mEq/L (7-15); Blood Urea Nitrogen* 18 mg/dL (7-30); Calcium* 8.6 mg/dL (8.4-10.6); Carbon Dioxide* 25 mmol/L (20-32); Creatinine* 0.6 mg/dL (0.5-1.5); Est. Creatinine Clearance* 45.54; Estimated Glomerular Filt Rate 101 ml/min; Glucose* 201 mg/dL (60-115); Magnesium* 1.4 mg/dL (1.5-2.6)
[2024-08-22] MEDS: predniSONE 20 MG TABLET 40 MG PO (08:41)
[2024-08-22] MEDS: ARIPiprazole 10 MG TABLET 5 MG PO (08:41)
[2024-08-22] MEDS: DULOXETINE 30 MG CAPSULE DR 120 MG PO (08:41)
[2024-08-22] MEDS: FENOFIBRATE 145 MG TABLET PO (08:41)
[2024-08-22] MEDS: METOPROLOL SUCCINATE (XL) 50 MG TAB PO (08:41)
[2024-08-22] MEDS: CETIRIZINE HCL 10 MG TABLET PO (08:41)
[2024-08-22] MEDS: ASPIRIN 81 MG TABLET EC PO (08:42)
[2024-08-22] MEDS: ALBUTEROL SULFATE 2.5 MG/3 ML VIAL.NEB NEB (08:42)
[2024-08-22] MEDS: SODIUM CHLORIDE 0.9 % (FLUSH) 10 ML SYRINGE 5 ML IVF ×2 (08:42→20:45)
--- NOTE | 2024-08-22 10:23 | NUTR.NU ---
RDN with diet education related to heart healthy diet. Patient admitted for COPD Exacerbation. Medical history significant for CAD. Current weight 134lb; height 5ft 2in; BMI 24.5 kg/m2. Weight has been stable recently per weight history. Current diet is Heart Healthy. Meal intakes since admit 75%+. RDN visited with patient whom reports a good appetite. She tries to follow and heart healthy diet at home. Heart Healthy Menu in patient's room. Offered diet education related to heart healthy diet, patient declined at this time. No nutrition interventions with stable weight and good intakes. RDN will continue to monitor and follow-up prn.
[2024-08-22] MEDS: AZITHROMYCIN 250 MG TABLET 500 MG PO (11:30)
[2024-08-22] MEDS: MAGNESIUM IV 2 GM/50 ML PIGGYBACK IVPB (12:53)
--- NOTE | 2024-08-22 14:24 | P.IMPN_ITS ---
Progress Note: A&P Assessment and plan (1) COPD exacerbation: Problem details: -Start Azithromycin, prednisone, duonebs -O2 NC managment, wean as tolerated. -F/up LA. Status: Acute (2) CAD (coronary artery disease): Problem details: No PCI done, blockage not amenable to stenting Hx STEMI No CP EKG w/out ischemic changes Trop -ve x2 Status: Acute (3) History of permanent cardiac pacemaker placement: Status: Chronic (4) Elevated lactic acid level: Status: Resolved (5) Depression: Status: Acute (6) PRECIOUS on CPAP: Status: Suspected Time Spent With Patient Total time spent: Today I spent 50 minutes seeing the patient, reviewing Expanse and EPIC notes/diagnostics, discussing the care plan with our care time that includes social work, PT/OT, pharmacy, RT, [place] [facility] and documenting my impressions and plan in the medical record. Subjective Date Seen: 08/22/24 Interval history: The patient has been seen and examined at bedside. She feels much better breathing improved. No wheezing today. Patient is still needing oxygen and she desats to low 80s when she walks to the bathroom off oxygen. Exam Narrative: Exam Narrative: Physical exam GENERAL: Comfortable, no acute distress. on O2 N/c HEAD AND NECK: Atraumatic, normocephalic CARDIOVASCULAR: RRR. Normal S1, S2. No murmurs. RESPIRATORY: Clear to auscultation B/L. Good air entry B/L. No wheezes today. GASTROINTESTINAL: Not distended, not tender to palpation. NEUROLOGY: Alert, awake, oriented X 3. Normal speech. PSYCH: Normal mood, normal affect. Const: Vital Signs, click to edit/add: Vital Signs - 24 hr 08/21/24 15:00 08/21/24 15:00 08/21/24 15:00 Temperature 97 F L Pulse Rate 92 Pulse Rate [Left R adial] Pulse Rate [Pulse Oximeter] Respiratory Rate 22 22 Blood Pressure [Le ft Arm] 160/90 H Blood Pressure [Ri ght Arm] Pulse Oximetry 91 Oxygen Delivery Me thod Room Air Oxygen Flow Rate 08/21/24 19:26 08/21/24 23:00 08/22/24 00:43 Temperature 97.4 F L 96.9 F L Pulse Rate 101 H Pulse Rate [Left R adial] 102 H Pulse Rate [Pulse Oximeter] 106 H Respiratory Rate 16 20 Blood Pressure [Le ft Arm] 120/64 Blood Pressure [Ri ght Arm] 164/90 H Pulse Oximetry 92 92 Oxygen Delivery Me thod Nasal Cannula Nasal Cannula Oxygen Flow Rate 2 1.5 08/22/24 03:00 08/22/24 07:00 08/22/24 07:00 Temperature 96.9 F L Pulse Rate 97 Pulse Rate [Left R adial] Pulse Rate [Pulse Oximeter] 91 95 Respiratory Rate 18 18 Blood Pressure [Le ft Arm] Blood Pressure [Ri ght Arm] 119/76 Pulse Oximetry 93 Oxygen Delivery Me thod Nasal Cannula Oxygen Flow Rate 1.5 08/22/24 07:00 08/22/24 11:30 08/22/24 11:31 Temperature 96.8 F L 96.8 F L Pulse Rate Pulse Rate [Left R adial] Pulse Rate [Pulse Oximeter] 95 97 Respiratory Rate 18 20 Blood Pressure [Le ft Arm] 120/80 133/72 Blood Pressure [Ri ght Arm] Pulse Oximetry 93 94 94 Oxygen Delivery Me thod Nasal Cannula Nasal Cannula Oxygen Flow Rate 1.5 1.5 Labs Labs: Laboratory Results - last 24 hr 08/21/24 08/22/24 13:40 06:20 WBC 6.56 RBC 4.01 Hgb 12.0 Hct 37.7 MCV 94 MCH 30 MCHC 32 Plt Count 187 Sodium 139 Potassium 3.8 Chloride 104 Carbon Dioxide 25 Anion Gap 10 BUN 18 Creatinine 0.6 Estimated Creat Clear 45.54 Estimated GFR 101 Glucose 201 H Calcium 8.6 Magnesium 1.4 L Troponin I < 0.01 L
[2024-08-22] MEDS: ATORVASTATIN CALCIUM 40 MG TABLET 80 MG PO (20:44)
[2024-08-22] MEDS: ENOXAPARIN 40 MG/0.4 ML INJ SUBCUT (20:45)
[2024-08-23] MEDS: IPRAT-ALBUT 0.5-2.5 MG/3 ML NEB 1 NEB IH ×2 (00:01→05:59)
[2024-08-23 02:57] VITALS: BP 131/87; PULSE 94; TEMP 36.4; O2SAT 91
[2024-08-23 07:00] VITALS: PULSE 101
--- NOTE | 2024-08-23 07:59 | PC.NURSE ---
Shift note ([id number]): Patient pleasant, alert and oriented. Ambulates with stand by assist of one to bathroom. O2 sats 89-92% on 0.5-1LPM. Patient was very SOB and O2 sats dropped to 83% on 1 LPM after ambulating to and from the bathroom.?Denied pain through night.?
[2024-08-23 08:34] VITALS: BP 139/84; PULSE 102; RESP 20; TEMP 38.3; O2SAT 92
[2024-08-23] MEDS: ACETAMINOPHEN 325 MG TABLET 975 MG PO (08:43)
[2024-08-23 09:00] VITALS: PULSE 97; RESP 20
--- NOTE | 2024-08-23 09:51 | PM.DS1 ---
DS: Providers Provider Date Seen: 08/23/24 Date of admission: 08/21/24 14:35 Primary care physician: Zoey Watters MD Admitting Clinician: Diana Saucedo MD Consults: 08/21/24 11:31 Consult to Respiratory Therapy [CONS] Routine Comment: Reason(s) for RT Consult:: Consult Attending Physician on discharge: Diana Saucedo MD DS: Diagnosis Discharge Diagnosis (1) COPD exacerbation: Status: Acute Problem details: -Start Azithromycin, prednisone, duonebs -O2 NC managment, wean as tolerated. -F/up LA. -DC pt on PO Abx, prednisone, cont stiolto, added budesonide inhaler. (2) Acute hypoxemic respiratory failure: Status: Acute Problem details: -Pt needs Home O2 on DC (3) CAD (coronary artery disease): Status: Acute Problem details: No PCI done, blockage not amenable to stenting Hx STEMI No CP EKG w/out ischemic changes Trop -ve x2 (4) History of permanent cardiac pacemaker placement: Status: Chronic (5) Elevated lactic acid level: Status: Resolved (6) Depression: Status: Acute (7) PRECIOUS on CPAP: Status: Suspected DS: Summary Hospital Course Hospital Course: Pt w/ PMH of CAD, PPM and COPD who was admitted for COPD exacerbation. Pt was treated w/ O2, Abx, prednisone and duonebs. Pt improved clinically and is discharged on Home O2, PO Abx, prednisone, to cont using stiolto and start using budesonide inhaler. Status at Discharge Overall status at discharge: patient is progressing back to baseline Time Spent with Patient Time attestation: Total time spent providing and/or coordinating discharge services: Exam Narrative: Exam Narrative: GENERAL: Comfortable, no acute distress. on O2 N/C HEAD AND NECK: Atraumatic, normocephalic CARDIOVASCULAR: RRR. Normal S1, S2. No murmurs. RESPIRATORY: Clear to auscultation B/L. Good air entry B/L. very minimal wheezes today. GASTROINTESTINAL: Not distended, not tender to palpation. NEUROLOGY: Alert, awake, oriented X 3. Normal speech. PSYCH: Normal mood, normal affect. Const: Vital Signs, click to edit/add: Vital Signs - 24 hr 08/22/24 11:30 08/22/24 11:31 08/22/24 14:53 Temperature 96.8 F L Pulse Rate 101 H Pulse Rate [Pulse Oximeter] 97 Respiratory Rate 20 Blood Pressure [Le ft Arm] 133/72 Blood Pressure [Ri ght Arm] Pulse Oximetry 94 94 Oxygen Delivery Me thod Nasal Cannula Oxygen Flow Rate 1.5 08/22/24 15:00 08/22/24 15:00 08/22/24 19:00 Temperature 97 F L 97.3 F L Pulse Rate Pulse Rate [Pulse Oximeter] 97 101 H 96 Respiratory Rate 20 20 18 Blood Pressure [Le ft Arm] 136/71 Blood Pressure [Ri ght Arm] 109/70 Pulse Oximetry 94 89 Oxygen Delivery Me thod Nasal Cannula Nasal Cannula Oxygen Flow Rate 1.5 1 08/22/24 23:00 08/22/24 23:00 08/23/24 02:57 Temperature 97.9 F 97.6 F Pulse Rate 85 Pulse Rate [Pulse Oximeter] 85 94 Respiratory Rate 20 Blood Pressure [Le ft Arm] Blood Pressure [Ri ght Arm] 122/68 131/87 Pulse Oximetry 92 91 Oxygen Delivery Me thod Nasal Cannula Oxygen Flow Rate 1 1 08/23/24 07:00 08/23/24 08:34 Temperature 100.9 F H Pulse Rate 101 H Pulse Rate [Pulse Oximeter] 102 H Respiratory Rate 20 Blood Pressure [Le ft Arm] Blood Pressure [Ri ght Arm] 139/84 Pulse Oximetry 92 Oxygen Delivery Me thod Room Air Nasal Can nula Oxygen Flow Rate 1 Discharge Plan Discharge Disposition: Home w/ Parent or Adult Date of Admission: 08/21/24 14:35 Attending Provider on Discharge: Diana Saucedo Primary Care Provider: Zoey Watters I Condition: Stable Anticipated Discharge Date/Time: 08/23/24 09:40 Discharge Medications: New prednisone 50 mg tablet 50 mg PO DAILY Qty: 3 0RF budesonide 180 mcg/actuation aerosol powdr breath activated 2 inh inhalation QAM Qty: 1 2RF cefdinir 300 mg capsule 300 mg PO BID Qty: 10 0RF azithromycin [Zithromax] 500 mg tablet 500 mg PO DAILY Qty: 3 0RF Continued metformin 500 mg tablet 1,000 mg PO BIDWM ipratropium-albuterol 0.5 mg-3 mg(2.5 mg base)/3 mL solution for nebulization 3 ml INHALATION Q6H PRN metoprolol succinate 50 mg tablet extended release 24 hr 50 mg PO DAILY epinephrine 0.3 mg/0.3 mL auto-injector 0.3 mg IM ONCE PRN albuterol sulfate [Ventolin HFA] 90 mcg/actuation HFA aerosol inhaler 1 - 2 puff inhalation Q4H PRN aripiprazole 5 mg tablet 5 mg PO DAILY duloxetine 60 mg capsule,delayed release(DR/EC) 120 mg PO DAILY fenofibrate nanocrystallized 145 mg tablet 145 mg PO DAILY Stiolto Respimat 2.5-2.5 mcg/actuation mist 2 puff inhalation DAILY multivitamin [Daily Multi-Vitamin] Tablet 1 tab PO DAILY nitroglycerin 0.4 mg tablet, sublingual 0.4 mg sublingual Q5-15M PRN Rx Instructions: do not exceed 3 doses per episode aspirin [Adult Aspirin Regimen] 81 mg tablet,delayed release (DR/EC) 81 mg PO DAILY omega 3-ert-gfd-fish oil [Fish Oil] 1,000 (120-180) mg capsule 1 cap PO DAILY atorvastatin 80 mg tablet 80 mg PO HS nystatin 100,000 unit/mL suspension 5 ml PO QID PRN Patient Comments: PRN THRUSH cetirizine [Allergy Relief (cetirizine)] 10 mg tablet 10 mg PO DAILY Discharge Orders: Discharge Order (Routine); Ordered 08/23/24 Ordered By: Diana Saucedo Patient Education: Prednisone (By mouth), Budesonide (By breathing), Cefdinir (By mouth), COPD (Chronic Obstructive Pulmonary Disease) (IP), Shortness of Breath (DC) Additional Instructions: Please follow-up with your primary care physician in 5-7 days Please follow-up with Pulmonary Medicine You need to be on oxygen at this time Please complete the courses of steroids and antibiotics prescribed Please take both stable to and budesonide (steroid) inhalers Do not hesitate to come back to the ER if you feel short of breath Activity Level: Activity as Tolerated Discharge Diet: Heart Healthy (2 gm sodium, low fat) Follow Up Appointments: Zoey Watters MD [Primary Care Provider] - 08/31/24 2:45 pm ([facility] for follow-up, please bring current insurance cards to appointment.) Forms: [employer] Info Instructions
[2024-08-23 10:00] VITALS: TEMP 37.2
[2024-08-23] MEDS: ARIPiprazole 10 MG TABLET 5 MG PO (10:10)
[2024-08-23] MEDS: ALBUTEROL SULFATE 2.5 MG/3 ML VIAL.NEB NEB (10:11)
[2024-08-23] MEDS: CETIRIZINE HCL 10 MG TABLET PO (10:11)
[2024-08-23] MEDS: DULOXETINE 30 MG CAPSULE DR 120 MG PO (10:11)
[2024-08-23] MEDS: FENOFIBRATE 145 MG TABLET PO (10:11)
[2024-08-23] MEDS: METOPROLOL SUCCINATE (XL) 50 MG TAB PO (10:11)
[2024-08-23] MEDS: SODIUM CHLORIDE 0.9 % (FLUSH) 10 ML SYRINGE 5 ML IVF (10:12)
[2024-08-23] MEDS: ASPIRIN 81 MG TABLET EC PO (10:12)
[2024-08-23] MEDS: METHYLPREDNISOLONE SOD SUCC 62.5 MG/ML (125) 125 MG IVP (10:12)
[2024-08-23] MEDS: AZITHROMYCIN 250 MG TABLET 500 MG PO (10:34)
--- NOTE | 2024-08-23 10:49 | RESP.RT ---
Patient wore own Home CPAP last night with not issues. Home Oxygen POC and E-cylinder information, instruction and safety done with patient and Family. They understand and confirm.
== END 2024-08-23 11:01 | disposition home or self-care (01) | DRG 140 ==
LOC: ED 09:07 → MEDSURG 09:53
PROVIDERS: Admitting Provider Student in an Organized Health Care Education/Training Program; Emergency Provider Family Medicine; PCP Family Medicine; Visit Provider Student in an Organized Health Care Education/Training Program
DX: J44.1 Chronic obstructive pulmonary disease with (acute) exacerbation (principal); J96.01 Acute respiratory failure with hypoxia; R74.02 Elevation of levels of lactic acid dehydrogenase [LDH]; G47.33 Obstructive sleep apnea (adult) (pediatric); Z87.891 Personal history of nicotine dependence; I25.10 Atherosclerotic heart disease of native coronary artery without angina pectoris; I25.2 Old myocardial infarction; Z95.0 Presence of cardiac pacemaker; F32.A Depression, unspecified
CPT/HCPCS: 36415; 71045; 80048; 82803; 82962; 83605; 83735; 83880; 84484; 85025; 85027; 86140; 87631; 94640; 94761; 99284; 99285; A9270; J1650; J2270; J2919; J3475; J7030; J7512